=== PATIENT | female | born 1970 | race African-American/Black ===

== ENCOUNTER 2018-04-17 08:55 | Day surgery (SDC) | payer OTHER ==
[2018-04-17] MEDS ORDERED: NA CHLORIDE 0.9% 1,000 ML ONE (09:17)
[2018-04-17] MEDS ORDERED: LIDOCAINE 2% ONE (09:59)
[2018-04-17] MEDS ORDERED: PROPOFOL 200 MG/20 ML VIAL IV ONE ×3 (10:01→11:17)
--- NOTE | 2018-04-17 10:47 | ENDO RPT ---
[address], [address] EGD PROCEDURE REPORT EXAM DATE: 04/17/2018 PATIENT NAME: Stephanie Jackson MR#: [id number] BIRTHDATE: 1970 ATTENDING: George Bermudez Dr STATUS: outpatient IN ROOM DINING SERVER: Jennyfer Jones and Elizabeth Mcginnis RN INDICATIONS: The patient is a 47 yr old Female here for an EGD due to mid epigastric abdominal pain, bloating, belching, dyspepsia, and GERD PROCEDURE PERFORMED: EGD with biopsy MEDICATIONS: Per Anesthesia. TOPICAL ANESTHETIC: none CONSENT: The patient understands the risks and benefits of the procedure and understands that these risks include, but are not limited to: sedation, allergic reaction, infection, perforation and/or bleeding. Alternative means of evaluation and treatment include, among others: physical exam, x-rays, and/or surgical intervention. The patient elects to proceed with this endoscopic procedure. DESCRIPTION OF PROCEDURE: During intra-op preparation period all mechanical medical equipment was checked for proper function. Hand hygiene and appropriate measures for infection prevention was taken. Procedure, possible complications, and alternatives including but not limited to the possibility of bleeding, perforation, tear, infection, sepsis, need for surgery, need for blood transfusion, and anesthesia related complications were explained to the patient. After the risks, benefits and alternatives of the procedure were thoroughly explained, Informed consent was verified, confirmed and timeout was successfully executed by the treatment team. The patient was placed in the left lateral position. The patient was anesthetized with topical anesthesia. Through the anesthetized oropharyngeal area, the scope was passed without any difficulty. The Pentax EG-[id number] ([id number]) endoscope was introduced through the mouth and advanced to the third portion of the duodenum. Retroflexed views revealed a moderate sized hiatal hernia. The gastroscope was then slowly withdrawn and removed. LA Class A esophagitis was found in the lower esophagus. A Schatzki's ring was found in the lower esophagus. A moderate sized hiatal hernia was found Mild gastritis was found in the antrum. Multiple biopsies were obtained and sent to pathology. ADVERSE EVENTS: There were no complications. IMPRESSIONS: 1. LA Class A esophagitis in the lower esophagus 2. Early Schatzki's ring in the lower esophagus (no history of dysphagia) 3. A moderate sized hiatal hernia 4. Mild gastritis in the antrum, s/p biopsies RECOMMENDATIONS: 1. await biopsy results 2. acid suppression therapy REPEAT EXAM: George Bermudez Dr eSigned: George Bermudez Dr 04/17/2018 10:46 AM cc: Otis Negrete CPT CODES: ICD9 CODES: PATIENT NAME: Stephanie JacksonVivienne MR#: [id number]
--- NOTE | 2018-04-17 11:09 | ENDO RPT ---
[address], [address] COLONOSCOPY PROCEDURE REPORT EXAM DATE: 04/17/2018 PATIENT NAME: Stephanie Jackson MR #: [id number] BIRTHDATE: 1970 ATTENDING: George Bermudez Dr STATUS: outpatient DIESEL ENGINE ERECTOR: Jennyfer Jones and Elizabeth Mcginnis RN INDICATIONS: The patient is a 47 yr old Female here for a colonoscopy due to personal history of colon polyps and family history of colon cancer PROCEDURE PERFORMED: Colonoscopy with snare polypectomy MEDICATIONS: Per Anesthesia. ESTIMATED BLOOD LOSS: None CONSENT: The patient understands the risks and benefits of the procedure and understands that these risks include, but are not limited to: sedation, allergic reaction, infection, perforation and/or bleeding. Alternative means of evaluation and treatment include, among others: physical exam, x-rays, and/or surgical intervention. The patient elects to proceed with this endoscopic procedure. DESCRIPTION OF PROCEDURE: During intra-op preparation period all mechanical medical equipment was checked for proper function. Hand hygiene and appropriate measures for infection prevention was taken. Procedure, possible complications, alternatives including, but not limited to possibility of bleeding, perforation, tear, infection, sepsis, need for surgery, need for blood transfusion, were explained to the patient. After the risks, benefits and alternatives of the procedure were thoroughly explained, Informed consent was verified, confirmed and timeout was successfully executed by the treatment team. The patient was placed in the left lateral position. A digital rectal exam was performed and revealed no abnormalities of the rectum. After appropriate level of anesthesia, the scope was passed. The EG-[id number] ([id number]) and [id number] ([id number]) endoscope was introduced through the anus and advanced to the terminal ileum which was intubated for a short distance. The quality of the prep was fair. The instrument was then slowly withdrawn as the colon was fully examined. Scope withdrawal time was 8 minutes. COLON FINDINGS: Two sessile polyps measuring 7 mm in size were found in the ascending colon. A polypectomy was performed using snare cautery. Moderate sized internal hemorrhoids were found. Retroflexed views revealed medium hemorrhoids. The scope was then completely withdrawn from the patient and the procedure terminated. ADVERSE EVENTS: There were no complications. IMPRESSIONS: 1. Two 7 mm sessile polyps in the ascending colon; polypectomy was performed using snare cautery 2. Moderate sized internal hemorrhoids 3. Intubation to terminal ileum 4. Personal history of colon polyps RECOMMENDATIONS: 1. await biopsy results 2. avoid NSAIDS for 2 weeks RECALL: Return in 3 year(s) for Colonoscopy. George Bermudez Dr eSigned: George Bermudez Dr 04/17/2018 11:09 AM cc: Otis Negrete CPT CODES: ICD9 CODES: 211.3 Benign neoplasm of colon PATIENT NAME: Stephanie JacksonVivienne MR#: [id number]
[2018-04-17 11:50] VITALS: O2SAT 100
[2018-04-17 11:51] VITALS: BP 137/90; TEMP 97
== END 2018-04-17 11:40 | disposition home or self-care (01) ==
LOC: OR 08:55
PROVIDERS: ATTEND Internal Medicine Gastroenterology
PROC: 0DB68ZX Excision of Stomach, Via Natural or Artificial Opening Endoscopic, Diagnostic (ICD-10-PCS; principal; 2018-04-17 10:00)
PROC: 0DBK8ZX Excision of Ascending Colon, Via Natural or Artificial Opening Endoscopic, Diagnostic (ICD-10-PCS; 2018-04-17 10:00)
DX: K22.2 Esophageal obstruction (principal); Z12.11 Encounter for screening for malignant neoplasm of colon; K21.0 Gastro-esophageal reflux disease with esophagitis; K29.50 Unspecified chronic gastritis without bleeding; D12.2 Benign neoplasm of ascending colon; K44.9 Diaphragmatic hernia without obstruction or gangrene; K64.8 Other hemorrhoids; E11.9 Type 2 diabetes mellitus without complications; I10 Essential (primary) hypertension; Z86.010 Personal history of colon polyps; Z90.49 Acquired absence of other specified parts of digestive tract; Z80.0 Family history of malignant neoplasm of digestive organs; Z82.3 Family history of stroke
CPT/HCPCS: 82962; 88305; 88312; J3490; J7030

== ENCOUNTER 2025-04-15 20:40 | Observation (INO) | payer BC, OTHER, SELFPAY ==
--- OUTSIDE RECORDS SUMMARY | 2025-04-15 20:50 | XMS REPORT | Continuity of Care Document ---
Author Name Unknown Address [address] [facility]. [address] [place] [address] [facility] Address [address] 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 Role Phone Caden Young Galeano Primary Care Physician DWIGHT SEVERINO Attending Clinician Unavailable WILLIE RIVERA Attending Clinician Unavailable MAC CAMP Attending Clinician Unavailable MUSHTAQ DELCID Attending Clinician Unavailab JOHANA Fine Attending Clinician Unava ilable SARAH ELLIS Attending Clinician Unavailable CAITLIN YBARRA Attending Clinician Unavailable MARSHA DYSON Attending Clinician Unavailable RADIOLOGY, DEPT Attending Clinician Unavailable LAB90 Attending Clinician Unavailable HARISH SINGH Attending Clinician Unavailable MARLI PATTERSON Attending Clinician Unavailable [facility] Attending Clinician Unavailabl e MD HUGH Attending Clinician Unavailab rosalva Brown MD, Molly ChanH. Attending Clinician [phone] MOLLY BROWNHVivienne Attending Clinician Unavaila ble NT90 Attending Clinician Unavailable JESSCIA BANSAL Attending Clinician Unavailable [facility]AC[facility], [facility] Attending Clinician Unav ailMARSHA Barros Attending Clinician Unavailable LAB47 Attending Clinician Unavailable RONI QUISPE Attending Clinician Unavailable ROGERSJAYJAY PATTERSON Attending Clinician Unavailable TIM HENRIQUEZ Attending Clinician Unavailable Ángel MEADOWS, Molly K.H. Attending Clinician [phone] Doctor Unassigned, Otranto Attending Clinician U navailable GENEVA TERRAZAS Attending Clinician Unavailable Pina Fenton Attending Clinician [phone] Oscar Arizmendi MD Attending Clinician [phone] Julio Pardo Attending Clinician [phone] Unknown, Attending Attending Clinician Unavailab JULIO Montes Attending Clinician Unavailable Lab, Ang - Db Attending Clinician Unavailable PINA REYES Attending Clinician Unavailable DONA ACUÑA Attending Clinician Unavailable Dona Acuña MD Attending Clinician [phone] RADIOLOGY Attending Clinician Unavailable Radiology Attending Clinician Unavailable [email or web address]_S Attending Clinician Unavaila OSCAR Mercado Attending Clinician Unavailabl e Geneva Davey Attending Clinician [phone] COLBY MOONEY Attending Clinician Unavailable YEHUDA BRITTON Attending Clinician Unavailable EbYehuda Leiva Attending Clinician [phone] China Riveraa Attending Clinician Unavailabl e Visit, Adc Nurse Attending Clinician Unavailable Colby Mooney MD Attending Clinician [phone] SIXTO PAYNE Attending Clinician Unavailabl e Only, Ang Db Test Attending Clinician Unavailabl e Sixto Lacy Attending Clinician [phone] Florence Lopez RN Attending Clinician Unavailabl e LAURA SMITH Attending Clinician Unavailab Laura Neely Attending Clinician + [phone] Romel STEINER, Lorie Murray Attending Clinician CHRIS Olivares Attending Clinician Unavailjcarlos Bailey MD, Chris Attending Clinician [phone] DESIREE YBARRA Attending Clinician Unavailable Chris MEADOWS, Eva Attending Clinician [phone] LINDA PEREZ Attending Clinician Unavailable Chris SHANK BONER, Linda Attending Clinician + [phone] John MEADOWS, Cristopher Attending Clinician [phone] Jennifer Bucio MD Attending Clinician [phone] Provider, Clc Ep Lab Attending Clinician Unavail able Anesthesia, Clc Ep Lab Attending Clinician UnaJENNIFER Page Attending Clinician Unavailable Call, Clc Apac Phone Attending Clinician Unavail able Only, Adc Test Attending Clinician Unavailable Alycia Stevenson MD Attending Clinician [phone] Pob, Adc Lab Main Attending Clinician UnavailALYCIA Marcos Attending Clinician Unavailjcarlos Langley MD, Jaime Bellamy Attending Clinician [phone] Narciso Nickerson MD Attending Clinician [phone] NARCISO NICKERSON Attending Clinician Unavailable Viktoria STEINER, Adeola Yu Attending Clinician Unavailable Abdirashid Foote MD Attending Clinician [phone] Pcp-Lab Attending Clinician Unavailable Jovany Foote MD Attending Clinician [phone] ABDIRASHID FOOTE Attending Clinician Unavailab le Lab, Adc Fam Pob I Attending Clinician Unavailab rosalva Gomes MD, Violetta Attending Clinician [phone] EVA PEREZ Attending Clinician Unavailable Yamilka Zhao MD Attending Clinician [phone] VIOLETTA GOMES Attending Clinician Unavailable Burt Quintero DO Attending Clinician [phone] 2, Adc Lab Attending Clinician Unavailable DARYL TAYLOR Attending Clinician Unava ghanshyam Gallardo MD, Gail Attending Clinician [phone] JEFALIYAH Attending Clinician Unavailable Jef RD, Aliyah Attending Clinician [phone] MOLLY BROWN Admitting Clinician UnavailMICHA Elkins Admitting Clinician Unavailable [email or web address]_Cole Admitting Clinician UnavailYOUNG Sarmiento Admitting Clinician Unavailable CHRIS BAILEY Admitting Clinician Unavailjcarlos Bucio MD, Jennifer Admitting Clinician JENNIFER BUCIO Admitting Clinician Unavailable NARCISO NICKERSON Admitting Clinician Unavailable Yamilka Zhao MD Admitting Clinician Payers Payer Name Policy Type Policy Number Effective Date Expirati on Date Source BC[facility] [id number] 2021 00:00:00 2021 00:00:00 [employer]BS [facility] [id number] 2020 00:00:00 [facility] REGINALD GOLD-X COPAY FOCUS 9 [id number] 2024 00:00:00 PHCS - WP Fail-Safe [employer] (PP[place]) [id number] Beleza na Web [id number] 2023 00:00:00 [facility] [id number] [place] [id number] AETNA O [id number] 2020 00:00:00 Problems Condition Name Condition Details Condition Category Status Onset Date Resolution Date Last Treatment Date Treating Clinician Comments Source History of colonic polyps History of colonic polyps Disease Active 03-25 00:00: 00 Susu Seybold - Externa l Type 2 diabetes mellitus with obesity (multi HCC) Type 2 diabetes mellitus with obesity (multi HCC) Disease Active 03-25 00:00: 00 Susu Seybold - Externa l Uncontroll ed type 2 diabetes mellitus with hyperglyce elvis (multi HCC) Uncontroll ed type 2 diabetes mellitus with hyperglyce elvis (multi HCC) Disease Active 03-25 00:00: 00 Susu Seybold - Externa l Cardiomyop athy (multi HCC) Cardiomyop athy (multi HCC) Disease Active 03-03 00:00: 00 Susu Seybold - Externa l Type 2 diabetes mellitus with hyperglyce elvis (multi HCC) Type 2 diabetes mellitus with hyperglyce elvis (multi HCC) Disease Active 3-04 00:00: 00 Susu Butlera robert Well adult exam Well adult exam Disease Active 01-16 00:00: 00 Susu Buchanan Externa robert Class 3 severe obesity due to excess calories with body mass index (BMI) of 40.0 to 44.9 in adult Class 3 severe obesity due to excess calories with body mass index (BMI) of 40.0 to 44.9 in adult Disease Active 01-16 00:00: 00 Susu Buchanan Externa robert Immunodefi ciency due to poorly controlled type 2 diabetes (CMS/HCC) (multi HCC) Immunodefi ciency due to poorly controlled type 2 diabetes (CMS/HCC) (multi HCC) Disease Active 2 00:00: 00 Susu Butlera robert Type 2 diabetes mellitus without complicati on, with long-term current use of insulin (multi HCC) Type 2 diabetes mellitus without complicati on, with long-term current use of insulin (multi HCC) Disease Active 12-19 00:00: 00 Susu Buchanan Externa robert History of cardiac radiofrequ ency ablation History of cardiac radiofrequ ency ablation Disease Active 12-19 00:00: 00 Susu Butlera robert PVC (premature ventricula r contractio n) PVC (premature ventricula r contractio n) Disease Active 12-19 00:00: 00 Susu Butlera robert Primary hypertensi on Primary hypertensi on Disease Active 12-19 00:00: 00 Susu Buchanan Externa robert Gingival cyst of adult Gingival cyst of adult Disease Active 12-19 00:00: 00 Susu Buchanan Externa robert Hyperlipid emia Hyperlipid emia Disease Active 12-19 00:00: 00 Susu Buchanan Externa robert Encounter for current shelter use of antiplatel et drug Encounter for current terminal gauger use of antiplatel et drug Disease Active 12-19 00:00: 00 Susu jones Type 2 diabetes mellitus without complicati on, with long-term current use of insulin (multi HCC) Type 2 diabetes mellitus without complicati on, with long-term current use of insulin (multi HCC) Disease Active 1 00:00: 00 Susu jones Primary osteoarthr itis of left knee Primary osteoarthr itis of left knee Disease Active 325 00:00: 00 [facility] Acute pain of left knee Acute pain of left knee Disease Active 2-16 00:00: 00 [facility] Primary osteoarthr itis of both knees Primary osteoarthr itis of both knees Disease Active 16 00:00: [facility] Acquired varus deformity knee, right Acquired varus deformity knee, right Disease Active 216 00:00: [facility] Acquired varus deformity knee, left Acquired varus deformity knee, left Disease Active 216 00:00: [facility] Class 3 severe obesity due to excess calories with serious comorbidit y and body mass index (BMI) of 40.0 to 44.9 in adult Class 3 severe obesity due to excess calories with serious comorbidit y and body mass index (BMI) of 40.0 to 44.9 in adult Disease Active 2-16 00:00: 00 [facility] PVC (premature ventricula r contractio n) PVC (premature ventricula r contractio n) Disease Active 2020-11 218 00:00: 00 [facility] PVC (premature ventricula r contractio n) PVC (premature ventricula r contractio n) Disease Active 2020-1118 00:00: 00 [facility] Frequent PVCs Frequent PVCs Disease Active 05-15 00:00: 00 [facility] Dyslipidem ia Dyslipidem ia Disease Active 05-15 00:00: 00 [facility] Sinus tachycardi a Sinus tachycardi a Disease Active 05-15 00:00: 00 [facility] QT prolongati on QT prolongati on Disease Active 05-15 00:00: 00 [facility] Frequent PVCs Frequent PVCs Disease Active 05-15 00:00: 00 [facility] Atypical chest pain Atypical chest pain Disease Active 05-14 00:00: 00 [facility] Morbid obesity with body mass index of 40.0-49.9 Morbid obesity with body mass index of 40.0-49.9 Disease Active 05-14 00:00: 00 [facility] UNK UNK Active 10/05/2020 [facility] Diagnosis Active 2019-11 00:00: 00 2020-10-06 10:18:00 Carin Olson OTHER TEAR OF MEDIAL MENISCUS, CURRENT I OTHER TEAR OF MEDIAL MENISCUS, CURRENT I Active 10/05/2020 [facility] Diagnosis Active 2019-11 00:00: 00 2020-11-04 15:27:00 Carin Olson Type 2 diabetes mellitus with complicati on, with long-term current use of insulin Type 2 diabetes mellitus with complicati on, with long-term current use of insulin Disease Active 02-19 00:00: 00 [facility] Multiple thyroid nodules Multiple thyroid nodules Disease Active 02-19 00:00: 00 [facility] H/O: hypothyroi dism H/O: hypothyroi dism Disease Active 02-19 00:00: 00 [facility] Essential hypertensi on Essential hypertensi on Disease Active 02-19 00:00: 00 [facility] Type 2 diabetes mellitus with complicati on, with long-term current use of insulin Type 2 diabetes mellitus with complicati on, with long-term current use of insulin Disease Active 02-19 00:00: 00 [facility] Diabetes mellitus (disorder) Diabetes mellitus (disorder) Active Problem 10/11/2020 [facility] Problem Active 2020-10-11 08:24:59 Carin Olson Hypertensi ve disorder, systemic arterial (disorder) Hypertensi ve disorder, systemic arterial (disorder) Active Problem 10/11/2020 [facility] Problem Active 2020-10-11 08:24:59 Carin Olson OTH TEAR OF MEDIAL MENISCUS, CURRENT INJ OTH TEAR OF MEDIAL MENISCUS, CURRENT INJ Active Iris Olson Diagnosis Active 2020-11-04 15:27:00 Carin Olson Allergies, Adverse Reactions, Alerts Allergy Name Allergy Type Status Severity Reaction(s) Onset Date Inactive Date Treating Clinician Comments Source Ciproflo xacin Hydrochl oride Propensi ty to adverse reaction s Active Rash 01-16 00:00: 00 Susu Hunter - Externa l No Known Medicati on Allergie s No Known Medicati on Allergie s Active Carin Olson NO KNOWN ALLERGIE S Drug Class Active [facility] Social History Social Habit Start Date Stop Date Quantity Comments Source Gender identity [facility] ASSERTION Not Susu Hunter - External Sexual orientation K marito Hunter - External History of Social function 2025-03-25 00:00:00 2025-03-25 00:00:00 Susu Hunter - External Sex 2023-11-01 16:20:03 2023-11-01 16:20:03 Female (finding) Susu Hunter - External Alcoholic beverage intake 2023-10-08 00:00:00 2023-10-08 00:00:00 Current non-drinker of alcohol (finding) [facility] Exposure to SARS-CoV-2 (event) 2023-01-06 00:00:00 2023-01-16 07:03:00 Not sure [facility] Tobacco use and exposure 2022-09-03 00:00:00 2022-09-03 00:00:00 Smokeless tobacco non-user [facility] Alcohol intake 2022-03-15 00:00:00 2022-03-15 00:00:00 Lifetime non-drinker (finding) [facility] Sex assigned at 1970 00:00:00 1970 00:00:00 Susu Hunter - External Smoking Status Start Date Stop Date Source Never smoked tobacco Susu Hunter - External Medications Ordered Medication Name Filled Medication Name Start Date Stop Date Current Medication? Ordering Clinician Indication Dosage Frequency Signature (SIG) Comments Components Source TRIMETHOPRI M-SULFAMETH OXAZOLE (BACTRIM DS) 800-160 MG oral Tablet 04-14 00:00: 00 04-22 04:59 :00 Yes [id number] 1{tbl} Q.5D Take 1 tablet by mouth 2 times daily for 7 days. Susu jones Rosuvastati n Calcium 20 MG oral Tablet 04-07 00:00: 00 Yes [id number] 20mg QD Take 1 tablet (20 mg total) by mouth nightly. Susu jones Insulin Lispro, 1 Unit Dial, 100 UNIT/ML subcutaneou s Solution Pen-injecto r 03-31 00:00: 00 Yes [id number] INJECT 15 UNITS SUBCUTANEO USLY THREE TIMES DAILY WITH MEALS Susu jones Sacubitril- Valsartan (Entresto) 24-26 MG oral Tablet 03-30 00:00: 00 Yes 1{tbl} Q.5D Take 1 tablet by mouth 2 times daily. Susu jones Multiple Vitamin (MULTIVITAM IN ADULT OR) 03-25 10:19: 44 03-25 00:00 :00 No Take by mouth. Susu jones Aspirin 81 MG oral Tablet Delayed Response 03-25 10:19: 42 Yes 81mg QD Take 1 tablet (81 mg total) by mouth daily. Susu jones Cholecalcif arslan (Vitamin D3) 1000 units oral Capsule 03-25 10:19: 42 Yes Take by mouth. Susu jones Magnesium 300 MG oral Capsule 03-25 10:19: 42 Yes Susu jones Multiple Vitamins-Ir on oral Tablet 03-25 10:19: 42 Yes See Admin Instructio ns. Susu jones Omeprazole 40 MG oral Delayed Release Capsule 03-25 00:00: 00 Yes [id number] 40mg QD Take 1 capsule (40 mg total) by mouth daily. Susu jones Continuous Glucose Sensor (FreeStyle Tori 3 Sensor) does not apply [facility] 03-20 00:00: 00 Yes [id number] Every 2 weeks. Susu jones Aspirin 81 MG oral Tablet Delayed Response 03-16 08:04: 44 Yes 81mg QD Take 1 tablet (81 mg total) by mouth daily. Susu jones Multiple Vitamin (MULTIVITAM IN ADULT OR) 03-16 08:04: 44 Yes Take by mouth. Susu jones Cholecalcif arslan (Vitamin D3) 1000 units oral Capsule 03-16 08:04: 44 Yes Take by mouth. Susu jones Magnesium 300 MG oral Capsule 03-16 08:04: 44 Yes Susu jones Multiple Vitamins-Ir on oral Tablet 03-16 08:04: 44 Yes See Admin Instructio ns. Susu jones Meloxicam 15 MG oral Tablet 03-16 00:00: 00 Yes [id number] 15mg QD Take 1 tablet (15 mg total) by mouth daily Take with Meals, STOP IF UPSET STOMACH. Susu jones Candesartan Cilexetil 32 MG oral Tablet 03-10 00:00: 00 Yes 1{tbl} QD Take 1 tablet by mouth daily. Susu jones Dapaglifloz in Propanediol (Farxiga) 10 MG oral Tablet 03-03 00:00: 00 Yes [id number] 1{tbl} QD Take 1 tablet by mouth daily. Susu jones Metoprolol Succinate 50 MG oral TABLET SR 24 HR 03-03 00:00: 00 Yes 50mg QD Take 1 tablet (50 mg total) by mouth daily. Susu jones Omeprazole 20 MG oral Delayed Release Capsule 02-27 00:00: 00 03-25 00:00 :00 No [id number] 20mg QD Take 1 capsule (20 mg total) by mouth daily. Susu jones Rosuvastati n Calcium 20 MG oral Tablet 3-16 00:00: 00 Yes [id number] 20mg QD Take 1 tablet (20 mg total) by mouth nightly. Susu jones Aspirin 81 MG oral Tablet Delayed Response 01-05 08:51: 34 Yes 81mg QD Take 1 tablet (81 mg total) by mouth daily. Susu jones Multiple Vitamin (MULTIVITAM IN ADULT OR) 01-05 08:51: 34 Yes Take by mouth. Susu jones Cholecalcif arslan (Vitamin D3) 1000 units oral Capsule 01-05 08:51: 34 Yes Take by mouth. Susu jones Magnesium 300 MG oral Capsule 01-05 08:51: 34 Yes 1 capsule with a meal; Once a day; 30 day(s) Susu jones Multiple Vitamins-Ir on oral Tablet 01-05 08:51: 34 Yes See Admin Instructio ns. Susu jones Pioglitazon e HCl 15 MG oral Tablet 12-24 00:00: 00 Yes [id number] 15mg QD Take 1 tablet (15 mg total) by mouth daily. Susu jones Continuous Glucose Sensor ([employer] G7 Sensor) does not apply [facility] -24 00:00: 00 01-05 00:00 :00 No [id number] Change sensor every 10 days.. Susu jones Insulin Lispro, 1 Unit Dial, 100 UNIT/ML subcutaneou s Solution Pen-injecto r 1-10 00:00: 00 Yes [id number] INJECT 15 UNITS SUBCUTANEO USLY THREE TIMES DAILY WITH MEALS. Susu jones Insulin Glargine-Li xisenatide (Soliqua) 100-33 UNT-MCG/ML subcutaneou s Solution Pen-injecto r 1-07 00:00: 00 Yes [id number] Start 15 unit once a day, increase by 2 units every 2 days until your fasting blood sugar is 130. Max dose 60 units a day.. Susu jones Triamcinolo ne Acetonide 0.1 % apply externally Cream 2023-11 2- 00:00: 00 Yes Susu jones Pioglitazon e HCl 15 MG oral Tablet 2023-11 2-04 00:00: 00 Yes [id number] 15mg QD Take 1 tablet by mouth once daily Susu jones Rosuvastati n Calcium 20 MG oral Tablet 2023-11 00:00: 00 Yes [id number] 20mg QD Take 1 tablet (20 mg total) by mouth nightly. Susu jones Omeprazole 20 MG oral Delayed Release Capsule 2023-11 00:00: 00 Yes [id number] 20mg QD Take 1 capsule (20 mg total) by mouth daily. Susu jones Candesartan Cilexetil 32 MG oral Tablet 2023-11 00:00: 00 Yes [id number] 1{tbl} QD TAKE 1 TABLET BY MOUTH EVERY DAY Susu jones Metoprolol Succinate 25 MG oral TABLET SR 24 HR 08-18 00:00: 00 Yes 37.5mg Q.5D Take 1.5 tablets (37.5 mg total) by mouth 2 times daily. Susu jones Insulin Glargine-Li xisenatide (Soliqua) 100-33 UNT-MCG/ML subcutaneou s Solution Pen-injecto r 07-14 00:00: 00 Yes [id number] Start 15 unit once a day, increase by 2 units every 2 days until your fasting blood sugar is 130. Max dose 60 units a day.. Susu jones Continuous Glucose Sensor (FreeStyle Tori 3 Sensor) does not apply [facility] 07-14 00:00: 00 Yes [id number] Every 2 weeks. Susu jones Aspirin 81 MG oral Tablet Delayed Response 07-11 14:48: 34 Yes 81mg QD Take 1 tablet (81 mg total) by mouth daily. Susu jones Multiple Vitamin (MULTIVITAM IN ADULT OR) 07-11 14:48: 34 Yes Take by mouth. Susu jones Cholecalcif arslan (Vitamin D3) 1000 units oral Capsule 07-11 14:48: 34 Yes Take by mouth. Susu jones Magnesium 300 MG oral Capsule 07-11 14:48: 34 Yes 1 capsule with a meal; Once a day; 30 day(s) Susu jones Triamcinolo ne Acetonide 0.1 % apply externally Ointment 07-11 00:00: 00 08-09 04:59 :00 No [id number] Apply twice a day for 1 week. Susu jones Pioglitazon e HCl 15 MG oral Tablet 06-22 00:00: 00 Yes [id number] 15mg QD Take 1 tablet (15 mg total) by mouth daily. Susu jones Insulin Lispro, 1 Unit Dial, 100 UNIT/ML subcutaneou s Solution Pen-injecto r 06-10 00:00: 00 Yes [id number] INJECT 15 UNITS SUBCUTANEO USLY THREE TIMES DAILY WITH MEALS. Susu jones Candesartan Cilexetil 32 MG oral Tablet 05-05 00:00: 00 Yes [id number] 1{tbl} QD Take 1 tablet by mouth daily. Susu jones Flecainide Acetate 100 MG oral Tablet 05-03 00:00: 00 01-05 00:00 :00 No 100mg QD Take 1 tablet (100 mg total) by mouth every morning and evening. Susu jones Insulin Degludec (Tresiba FlexTouch) 100 UNIT/ML subcutaneou s Solution Pen-injecto r 04-24 00:00: 00 07-14 00:00 :00 No [id number] 40 units once a day. Susu jones Aspirin 81 MG oral Tablet Delayed Response 04-22 10:04: 01 Yes 81mg Take 1 tablet (81 mg total) by mouth daily. Susu jones Multiple Vitamin (MULTIVITAM IN ADULT OR) 04-22 10:04: 01 Yes Take by mouth. Susu jones Cholecalcif arslan (Vitamin D3) 1000 units oral Capsule 04 10:04: 01 Yes Take by mouth. Susu jones Candesartan Cilexetil 32 MG oral Tablet 04-22 10:04: 01 Yes 32mg Take 32 mg by mouth daily. Susu jones Dapaglifloz in Pro-metFORM IN ER (Xigduo XR) 5-1000 MG oral TABLET SR 24 HR 04-22 00:00: 00 Yes [id number] 1 tablet once a day. Susu jones Metformin HCl ER 500 MG oral TABLET SR 24 HR 04-22 00:00: 00 Yes [id number] 2 tabs daily at night. Susu jones Continuous Glucose Sensor (Adynxx G7 Sensor) does not apply Misc 04-22 00:00: 00 07-11 00:00 :00 No [id number] USE EVERY 10 DAYS. Susu jones OZEMPIC (0.25 or 0.5 mg/dose) 2 mg/3 mL SQ Solution Pen-Injecto r 04-22 00:00: 00 06-18 04:59 :00 No [id number] .25mg Inject 0.25 mg into the skin once a week. Susu jones Omeprazole 20 MG oral Delayed Release Capsule 5-09 00:00: 00 Yes [id number] 20mg QD Take 1 capsule (20 mg total) by mouth daily. Susu jones Insulin Degludec 100 UNIT/ML subcutaneou s Solution Pen-injecto r 3-19 00:00: 00 Yes [id number] 30U Inject 30 units into the skin daily. Susu jones Omeprazole 20 MG oral Delayed Release Capsule 01-16 16:34: 03 Yes 20mg Take 1 capsule (20 mg total) by mouth daily. Susu jones Multiple Vitamins-Mi nerals (MULTIVITAM IN ADULTS OR) 01-16 16:33: 56 01-16 00:00 :00 No Take by mouth. Susu jones Multiple Vitamin (MULTIVITAM IN ADULT OR) 01-16 16:33: 54 Yes Take by mouth. Susu jones Flecainide Acetate 100 MG oral Tablet 01-16 16:33: 54 Yes 100mg Take 1 tablet (100 mg total) by mouth. Susu jones Ergocalcife rol (Vitamin D2) 50 MCG (2000 UT) oral Tablet 01-16 16:33: 28 01-16 00:00 :00 No 1{capsu le} 1 capsule. Susu jones Aspirin 81 MG oral Tablet Delayed Response 01-16 16:33: 25 Yes 81mg Take 1 tablet (81 mg total) by mouth daily. Susu jones Cholecalcif arslan (Vitamin D3) 1000 units oral Capsule 01-16 16:33: 25 Yes Take by mouth. Susu jones Candesartan Cilexetil 32 MG oral Tablet 01-16 16:33: 25 Yes 32mg Take 32 mg by mouth daily. Susu jones Insulin Degludec (Tresiba) 100 UNIT/ML subcutaneou s Solution 12-19 15:07: 09 12-19 00:00 :00 No Inject into the skin daily. Susu jones Insulin Aspart (NOVOLOG FLEXPEN SC) 12-19 15:07: 12-19 00:00 :00 No Inject into the skin. Susu jones Metoprolol Succinate 25 MG oral Capsule ER 24 Hour Sprinkle 12-19 15:07: 09 12-19 00:00 :00 No 25mg Take 25 mg by mouth 2 times daily 1 1/2 tabs. Susu jones Candesartan Cilexetil 32 MG oral Tablet 12-19 15:07: 09 12-19 00:00 :00 No 32mg Take 32 mg by mouth daily. Susu jones Omeprazole 20 MG oral Delayed Release Capsule 12-19 15:07: 09 12-19 00:00 :00 No 20mg Take 1 capsule (20 mg total) by mouth daily. Susu jones Multiple Vitamins-Mi nerals (MULTIVITAM IN ADULTS OR) 12-19 15:07: 04 Yes Take by mouth. Susu jones Candesartan Cilexetil 32 MG oral Tablet 12-19 15:07: 04 Yes 32mg Take 32 mg by mouth daily. Susu jones Omeprazole 20 MG oral Delayed Release Capsule 12-19 15:07: 04 Yes 20mg Take 1 capsule (20 mg total) by mouth daily. Susu jones Aspirin 81 MG oral Tablet Delayed Response 12-19 15:01: 25 Yes 81mg Take 1 tablet (81 mg total) by mouth daily. Susu jones Multiple Vitamin (MULTIVITAM IN ADULT OR) 12-19 15:01: 25 Yes Take by mouth. Susu jones Cholecalcif arslan (Vitamin D3) 1000 units oral Capsule 12-19 15:01: 25 Yes Take by mouth. Susu jones Flecainide Acetate 100 MG oral Tablet 12-19 15:01: 25 Yes 100mg Take 1 tablet (100 mg total) by mouth. Susu jones Pioglitazon e HCl 15 MG oral Tablet 12-19 00:00: 00 Yes [id number] 15mg Take 1 tablet (15 mg total) by mouth daily. Susu jones Amoxicillin -Pot Clavulanate 500-125 MG oral Tablet 12-19 00:00: 00 Yes [id number] 1{tbl} Take 1 tablet by mouth every 12 hours. Susu jones Rosuvastati n Calcium 20 MG oral Tablet 12-17 00:00: 00 Yes Susu jones Insulin Aspart FlexPen 100 UNIT/ML subcutaneou s Solution Pen-injecto r 2022-11 00:00: 00 Yes INJECT 15 UNITS SUBCUTANEO USLY THREE TIMES DAILYWITH MEALS AND SLIDING SCALE. MAX DOSE OF 90 UNITS DAILY Susu jones Insulin Degludec 100 UNIT/ML subcutaneou s Solution Pen-injecto r 2022-11 00:00: 00 Yes 30U Inject 30 units into the skin daily. Susu jones Pioglitazon e HCl 15 MG oral Tablet 2022-11 00:00: 00 12-19 00:00 :00 No 15mg Take 1 tablet (15 mg total) by mouth daily. Susu jones meloxicam 7.5 mg tablet 2022-11 00:00: 00 Yes [id number] 7.5mg Take 1 tablet by mouth once daily as needed (headache not relieved by tylenol). [facility] gabapentin 300 mg capsule 2022-11 07:42: 45 Yes 300mg Take 1 capsule by mouth at bedtime. Managed by draftsperson [facility] aspirin 81 mg EC tablet 2022-11 15:38: 43 Yes 81mg Take 81 mg by mouth daily. [facility] candesartan 32 mg tablet 2022-11 15:38: 27 Yes 32mg Take 32 mg by mouth daily. [facility] flecainide 100 mg tablet 2022-11 00:00: 00 Yes [id number] 100mg Take 1 tablet by mouth in the morning and 1 tablet in the evening. [facility] rosuvastati n 20 mg tablet 2022-11 00:00: 00 Yes [id number] 20mg Take 1 tablet by mouth in the morning. [facility] Metoprolol Succinate 25 MG oral TABLET SR 24 HR 2022-11 00:00: 00 Yes 37.5mg Q.5D Take 1.5 tablets (37.5 mg total) by mouth 2 times daily. Susu joens azelastine 137 mcg (0.1 %) nasal spray 2022-11 017 00:00: 00 Yes [id number] 1{spray } Use 1 [place] in each nostril in the morning and 1 [place] in the evening. Use in each nostril as directed [facility] fluticasone propionate 50 mcg/actuati on nasal spray 2022-11 00:00: 00 Yes [id number] 1{spray } Use 1 [place] in each nostril in the morning. [facility] benzonatate 100 mg capsule 2022-11 00:00: 00 Yes [id number] 200mg Take 2 capsules by mouth every 8 (eight) hours as needed for Cough. [facility] cetirizine (ZYRTEC) 10 mg tablet 2022-11 00:00: 00 Yes [id number] 10mg Take 1 tablet by mouth in the morning. [facility] pantoprazol e (PROTONIX) 40 mg EC tablet 2022-11 13:51: 44 09-02 00:00 :00 No 40mg Take 40 mg by mouth daily. [facility] MELATONIN ORAL 2022-11 13:51: 41 09-02 00:00 :00 No Take by mouth. [facility] ergocalcife rol, vitamin d2, 1,250 mcg (50,000 unit) capsule 2022-11 13:51: 38 09-02 00:00 :00 No [id number] Take 50,000 Units by mouth weekly. [facility] clobetasoL 0.05 % ointment 2022-11 13:51: 35 09-02 00:00 :00 No [facility] metoprolol succinate XL 25 mg 24 hr tablet 08-13 00:00: 00 09-28 00:00 :00 No [id number] 37.5mg Take 1.5 tablets by mouth in the morning and 1.5 tablets in the evening. [facility] insulin NPH (NOVOLIN N NPH U-100 INSULIN) 100 unit/mL injection 08-03 00:00: 00 10-30 00:00 :00 No [id number] 15U inject 15 Units under the skin every morning and evening. [facility] semaglutide (OZEMPIC) 2 mg/dose (8 mg/3 mL) PnIj 8-10 00:00: 00 Yes [id number] 2mg inject 2 mg under the skin weekly. [facility] insulin aspart U-100 (NOVOLOG FLEXPEN U-100 INSULIN) 100 unit/mL (3 mL) injection 8-10 00:00: 00 10-30 00:00 :00 No [id number] 14 units with meals and SS. Max dose of 90 units daily [facility] flecainide 100 mg tablet 8-10 00:00: 00 09-28 00:00 :00 No [id number] 100mg Take 1 tablet by mouth in the morning and 1 tablet in the evening. [facility] insulin degludec (TRESIBA FLEXTOUCH U-100) 100 unit/mL (3 mL) InPn 06-28 00:00: 00 08-03 00:00 :00 No [id number] 50U inject 50 Units under the skin in the morning. [facility] cefdinir 300 mg capsule 2-28 00:00: 00 01-27 05:59 :00 No [id number] 600mg Take 2 capsules by mouth in the morning for 10 days. [facility] Nitrofurant oin&Nit. Macrocryst (MACROBID) 100 mg capsule 2-28 00:00: 00 01-24 05:59 :00 No [id number] 100mg Take 1 capsule by mouth in the morning and 1 capsule in the evening. Do all this for 7 days. [facility] flecainide 50 mg tablet 1-05 00:00: 00 06-28 00:00 :00 No [id number] 100mg Take 2 tablets by mouth every 12 (twelve) hours. [facility] metoprolol succinate XL 25 mg 24 hr tablet 1-04 00:00: 00 08-13 00:00 :00 No [id number] 37.5mg Take 1.5 tablets by mouth in the morning and 1.5 tablets in the evening. [facility] candesartan 32 mg tablet 2021-11 11:47: 37 Yes 32mg Take 32 mg by mouth daily. [facility] MULTIVITAMI N ORAL 2021-11 11:47: 37 Yes Take by mouth. [facility] ergocalcife rol, vitamin d2, 1,250 mcg (50,000 unit) capsule 2021-11 11:47: 37 Yes [id number] Take 50,000 Units by mouth weekly. [facility] aspirin 81 mg EC tablet 2021-11 11:47: 37 Yes 81mg Take 81 mg by mouth daily. [facility] Cholecalcif arslan, Vitamin D3, 50 mcg (2,000 unit) capsule 2021-11 11:47: 37 Yes 1{capsu le} Take 1 capsule by mouth daily. [facility] omeprazole 20 mg capsule 2021-11 11:47: 37 Yes 20mg Take 20 mg by mouth daily. [facility] clobetasoL 0.05 % ointment 2021-11 11:47: 37 Yes [facility] molnupiravi r 200 mg capsule 2021-11 00:00: 00 11-23 05:59 :00 No [id number] 800mg Take 4 capsules by mouth every 12 (twelve) hours for 5 days. [facility] venlafaxine 50 mg tablet 2021-11 13:34: 08 10-29 00:00 :00 No 100mg Take 100 mg by mouth daily. [facility] ALPRAZolam 0.5 mg tablet 2021-11 13:33: 53 10-29 00:00 :00 No .5mg Take 0.5 mg by mouth. [facility] Insulin [place], Disposable, (BD INSULIN PEN NEEDLE UF) 31 gauge x 5/16" Ndle 2021-11 00:00: 00 Yes [id number] Use to inject insulin 5X daily. DX:E11.65 [facility] pioglitazon e 15 mg tablet 2021-11 00:00: 00 Yes [id number] 15mg Take 1 tablet by mouth in the morning. [facility] Insulin [place], Disposable, (BD INSULIN PEN NEEDLE UF) 31 gauge x 5/16" Ndle 2021-11 00:00: 00 Yes [id number] Use to inject insulin 5X daily. DX:E11.65 [facility] semaglutide (OZEMPIC) 2 mg/dose (8 mg/3 mL) PnIj 2021-11 00:00: 00 06-28 00:00 :00 No [id number] 2mg inject 2 mg under the skin weekly. [facility] insulin degludec (TRESIBA FLEXTOUCH U-100) 100 unit/mL (3 mL) InPn 2021-11 00:00: 00 06-28 00:00 :00 No [id number] 50U inject 50 Units under the skin daily. [facility] insulin aspart U-100 (NOVOLOG FLEXPEN U-100 INSULIN) 100 unit/mL (3 mL) injection 2021-11 00:00: 00 06-28 00:00 :00 No [id number] 14 units with meals and SS. Max dose of 90 units daily [facility] Venlafaxine 225 mg TR24 2021-11 10:08: 20 10-03 00:00 :00 No 100mg Take 100 mg by mouth 2 (two) times daily. [facility] meloxicam 7.5 mg tablet 2021-11 10:08: 17 10-03 00:00 :00 No 7.5mg Take 7.5 mg by mouth daily. PRN pain [facility] lovastatin 20 mg tablet 2021-11 10:02: 57 10-03 00:00 :00 No 20mg Take 20 mg by mouth. [facility] candesartan 32 mg tablet 2021-11 09:52: 51 Yes 32mg Take 32 mg by mouth daily. [facility] aspirin 81 mg EC tablet 2021-11 09:52: 47 Yes 81mg Take 81 mg by mouth daily. [facility] rosuvastati n 20 mg tablet 2021-11 00:00: 00 09-28 00:00 :00 No 20mg Take 1 tablet by mouth. [facility] ALPRAZolam 0.5 mg tablet 2021-11 10:42: 18 Yes .5mg Take 0.5 mg by mouth. [facility] clobetasoL 0.05 % ointment 2021-11 10:42: 18 Yes [facility] lovastatin 20 mg tablet 2021-11 10:42: 18 Yes 20mg Take 20 mg by mouth. [facility] benzonatate 100 mg capsule 2021-11 00:00: 00 09-11 04:59 :00 No [id number] 100mg Take 1 capsule by mouth 3 (three) times daily as needed for Cough for up to 7 days. [facility] Blood-Gluco se Sensor (DEXCOM G6 SENSOR) Janette 08-10 00:00: 00 Yes [id number] Use as directed [facility] Blood-Gluco se Transmitter (DEXCOM G6 TRANSMITTER ) Janette 08-10 00:00: 00 09-02 00:00 :00 No [id number] Use as directed [facility] metoprolol succinate XL 25 mg 24 hr tablet 07-20 00:00: 00 11-22 00:00 :00 No [id number] 25mg Take 1 tablet by mouth in the morning and 1 tablet in the evening. [facility] gabapentin 100 mg capsule 07-15 00:00: 00 10-04 00:00 :00 No TAKE 1 CAPSULE BY MOUTH TWICE DAILY NEEDED [facility] insulin aspart U-100 (NOVOLOG FLEXPEN U-100 INSULIN) 100 unit/mL (3 mL) injection 07-15 00:00: 00 10-27 00:00 :00 No [id number] 14 units with meals and SS. Max dose of 90 units daily [facility] pioglitazon e 15 mg tablet 06-05 00:00: 00 10-27 00:00 :00 No [id number] 15mg Take 1 tablet by mouth in the morning. [facility] insulin degludec (TRESIBA FLEXTOUCH U-100) 100 unit/mL (3 mL) InPn 05-27 00:00: 00 10-27 00:00 :00 No [id number] 50U inject 50 Units under the skin daily. [facility] insulin aspart U-100 (NOVOLOG FLEXPEN U-100 INSULIN) 100 unit/mL (3 mL) injection 05-19 00:00: 00 07-15 00:00 :00 No [id number] 14 units with meals and SS. Max dose of 90 units daily [facility] candesartan 32 mg tablet 04-07 11:46: 06 Yes 32mg Take 32 mg by mouth daily. [facility] meloxicam 7.5 mg tablet 04-07 11:46: 02 Yes 7.5mg Take 7.5 mg by mouth daily. PRN pain [facility] Venlafaxine 225 mg TR24 04-07 11:46: 02 Yes 100mg Take 100 mg by mouth 2 (two) times daily. [facility] MULTIVITAMI N ORAL 04-07 11:45: 23 Yes Take by mouth. [facility] MELATONIN ORAL 04-07 11:45: 18 Yes Take by mouth. [facility] ergocalcife rol, vitamin d2, 1,250 mcg (50,000 unit) capsule 04-07 11:45: 15 Yes [id number] Take 50,000 Units by mouth weekly. [facility] aspirin 81 mg EC tablet 04-07 11:45: 14 Yes 81mg Take 81 mg by mouth daily. [facility] venlafaxine 50 mg tablet 04-07 11:45: 12 Yes 100mg Take 100 mg by mouth daily. [facility] Cholecalcif arslan, Vitamin D3, (VITAMIN D3) 50 mcg (2,000 unit) capsule 04-07 11:45: 00 Yes 1{capsu le} Take 1 capsule by mouth daily. [facility] omeprazole 20 mg capsule 04-07 11:44: 27 Yes 20mg Take 20 mg by mouth daily. [facility] semaglutide (OZEMPIC) 1 mg/dose (4 mg/3 mL) PnIj 04-07 00:00: 00 10-27 00:00 :00 No [id number] 1mg inject 1 mg under the skin weekly. [facility] ALPRAZolam (XANAX) 0.25 mg tablet 04-03 14:17: 13 04-03 00:00 :00 No .25mg Take 0.25 mg by mouth as needed (take 1/2 to 1 tablet qd as needed). [facility] liraglutide (VICTOZA 3-MEHRDAD) 0.6 mg/0.1 mL (18 mg/3 mL) injection 03-20 00:00: 00 04-07 00:00 :00 No [id number] ADMINISTER 1.8 MG UNDER THE SKIN DAILY [facility] Sodium Hyaluronate solution prefilled syringe 20 mg 03-15 14:39: 38 03-15 14:39 :00 No [id number] 9109 20mg [facility] Sodium Hyaluronate solution prefilled syringe 20 mg 03-10 13:43: 53 03-10 13:43 :00 No [id number] 9109 20mg [facility] Sodium Hyaluronate solution prefilled syringe 20 mg 03-01 14:21: 55 03-01 14:21 :00 No [id number] 9109 20mg [facility] omeprazole OTC (PriLOSEC OTC) 20 MG EC tablet 02-10 00:00: 00 03-13 04:59 :00 No [id number] 9100 20mg QD Take 1 tablet (20 mg total) by mouth 1 (one) time each day. Do not crush, chew, or split. Take w/ NSAID [facility] meloxicam (Mobic) 7.5 MG tablet 02-10 00:00: 00 03-13 04:59 :00 No [id number] 9100 7.5mg Take 1 tablet (7.5 mg total) by mouth 1 (one) time each day if needed (pain). [facility] pantoprazol e (PROTONIX) 40 mg EC tablet 01-18 10:24: 18 Yes 40mg Take 40 mg by mouth daily. [facility] flecainide 50 mg tablet 01-18 00:00: 00 11-23 00:00 :00 No [id number] 50mg Take 1 tablet by mouth every 12 (twelve) hours. [facility] bupivacaine (Marcaine) 0.25 % injection 1 mL 01-04 15:29: 49 01-04 15:29 :00 No [id number] 1mL [facility] lidocaine (Xylocaine) 1 % injection 1 mL 01-04 15:29: 49 01-04 15:29 :00 No [id number] 1mL [facility] triamcinolo ne acetonide (Kenalog) 10 MG/ML injection 10 mg 01-04 15:29: 49 01-04 15:29 :00 No [id number] 10mg [facility] venlafaxine XR (Effexor-XR ) 75 MG 24 hr capsule 01-04 08:38: 33 Yes 75mg Take 75 mg by mouth. [facility] aspirin 81 MG EC tablet 01-04 08:38: 32 Yes 81mg Take 81 mg by mouth. [facility] candesartan (Atacand) 32 MG tablet 01-04 08:38: 32 Yes 32mg Take 32 mg by mouth. [facility] cholecalcif arslan (Vitamin D-3) 1.25 MG (52338 UT) capsule 01-04 08:38: 32 Yes 1{tbl} Take 1 tablet by mouth. [facility] gabapentin (Neurontin) 100 MG capsule 01-04 08:38: 32 Yes 100mg Take 100 mg by mouth. [facility] Pediatric Multiple Vit-C-FA (pediatric multivitami n) tablet chewable split tablet 01-04 08:38: 31 Yes Take by mouth. [facility] omeprazole OTC (PriLOSEC OTC) 20 MG EC tablet 01-04 00:00: 00 02-04 04:59 :00 No [id number] 20mg QD Take 1 tablet (20 mg total) by mouth 1 (one) time each day. Do not crush, chew, or split. Take w/ NSAID [facility] meloxicam (Mobic) 15 MG tablet 12-29 00:00: 00 Yes TAKE 1 TABLET BY MOUTH ONCE DAILY NEEDED WITH FOOD [facility] HYDROcodone -acetaminop hen 5-325 mg tablet 12-29 00:00: 00 10-29 00:00 :00 No 1{tbl} Take 1 tablet by mouth. [facility] Tresiba FlexTouch 100 UNIT/ML injection 12-18 00:00: 00 Yes 50U QD Inject 50 Units under the skin 1 (one) time each day. INJECT 50 UNITS SUBCUTANEO USLY ONCE DAILY [facility] pioglitazon e (Actos) 15 MG tablet 12-09 00:00: 00 Yes 1{tbl} QD Take 1 tablet by mouth 1 (one) time each day. [facility] pioglitazon e 15 mg tablet 12-09 00:00: 00 06-05 00:00 :00 No [id number] 15mg Take 1 tablet by mouth daily. [facility] methocarbam oL 750 mg tablet 2020-11 00:00: 00 04-07 00:00 :00 No [id number] 750mg Take 1 tablet by mouth 4 (four) times daily as needed for Pain (scale 7-10). [facility] flecainide (Tambocor) 50 MG tablet 2020-11 00:00: 00 Yes 1{tbl} Q12H Take 1 tablet by mouth every 12 (twelve) hours. [facility] sucralfate 1 gram tablet 2020-11 00:00: 00 09-02 00:00 :00 No [id number] 1g Take 1 tablet by mouth 2 (two) times daily. [facility] Continuous Blood Gluc Sensor (Dexcom G6 Sensor) [facility] 2020-11 00:00: 00 Yes See administra yolie francis. [facility] rosuvastati n 10 mg tablet 2020-11 10:22: 43 10-04 00:00 :00 No 10mg Take 10 mg by mouth at bedtime. [facility] rosuvastati n 20 mg tablet 2020-11 00:00: 00 01-03 05:59 :00 No [id number] 20mg Take 1 tablet by mouth at bedtime for 90 days. [facility] B-D UF III MINI PEN NEEDLES 31G X 5 MM [facility] 2020-11 00:00: 00 Yes USE TO INJECT INSULIN FIVE TIMES DAILY [facility] rosuvastati n 10 mg tablet 2020-11 00:00: 00 10-03 00:00 :00 No 10mg Take 10 mg by mouth. [facility] liraglutide (VICTOZA 2-MEHRDAD) 0.6 mg/0.1 mL (18 mg/3 mL) injection 2020-11 00:00: 00 10-27 00:00 :00 No 1.8mg inject 1.8 mg under the skin. [facility] mupirocin 2 % ointment 07-26 00:00: 00 09-02 00:00 :00 No APPLY TOPICALLY TO THE SKIN TWICE DAILY [facility] metoprolol succinate XL 25 mg 24 hr tablet 07-12 00:00: 00 07-19 00:00 :00 No [id number] 25mg Take 1 tablet by mouth 2 (two) times daily. [facility] metoprolol succinate XL 25 mg 24 hr tablet 06-07 00:00: 00 07-12 00:00 :00 No [id number] 25mg Take 1 tablet by mouth daily. [facility] metoprolol succinate XL 25 mg 24 hr tablet 05-27 00:00: 00 06-07 00:00 :00 No [id number] 25mg Take 1 tablet by mouth daily. [facility] Insulin [place], Disposable, (BD INSULIN PEN NEEDLE UF) 31 gauge x 5/16" Ndle 05-17 00:00: 00 10-27 00:00 :00 No [id number] Use to inject insulin 5X daily. DX:E11.65 [facility] Insulin [place], Disposable, (BD INSULIN PEN NEEDLE UF) 31 gauge x 5/16" Ndle 05-17 00:00: 00 10-27 00:00 :00 No [id number] Use to inject insulin 5X daily. DX:E11.65 [facility] insulin degludec (TRESIBA FLEXTOUCH U-100) 100 unit/mL (3 mL) InPn 05-17 00:00: 00 05-27 00:00 :00 No [id number] 50U inject 50 Units under the skin daily. [facility] insulin aspart U-100 (NOVOLOG FLEXPEN U-100 INSULIN) 100 unit/mL (3 mL) injection 05-17 00:00: 00 05-19 00:00 :00 No [id number] 14 units with meals and SS. Max dose of 90 units daily [facility] pioglitazon e 15 mg tablet 05-17 00:00: 00 12-09 00:00 :00 No [id number] 15mg Take 1 tablet by mouth daily. [facility] liraglutide (VICTOZA 3-MEHRDAD) 0.6 mg/0.1 mL (18 mg/3 mL) injection 05-17 00:00: 00 09-06 00:00 :00 No [id number] 1.8mg inject 1.8 mg under the skin daily. [facility] Blood-Gluco se Sensor (DEXCOM G6 SENSOR) Janette 05-16 00:00: 00 08-10 00:00 :00 No [id number] Use as directed [facility] Blood-Gluco se Transmitter (DEXCOM G6 TRANSMITTER ) Janette 05-16 00:00: 00 08-10 00:00 :00 No [id number] Use as directed [facility] aspirin 81 mg EC tablet 05-14 00:00: 00 06-14 04:59 :00 No [id number] 81mg Take 1 tablet by mouth daily for 30 days. [facility] Hydralazine 2019-11 18:21: 00 No Notes: (Same as: Apresoline ) Push over 5 minutes Kaililly robert Wesley Labetalol 2019-11 18:21: 00 No Notes: (Same as: Normodyne, Trandate) Push over 2 minutes Give bolus over 2-3 minutes. Kaililly robert [place] Ketorolac 2019-11 18:21: 00 No 4 days MEDICATION WASTE Product Size: 30 mg Product Wasted: ___ mg Kaililly robert Wesley Hydromorpho ne 2019-11 18:21: 00 No Notes: Same as: Dilaudid Memlilly Olson Flumazenil 2019-11 18:21: 00 No Notes: (Same as: Romazicon) Memlilly robert Olson Naloxone 2019-11 18:21: 00 No Notes: Same as Narcan Carin Olson Ephedrine 2019-11 18:21: 00 No Notes: (Same as: ePHEDrine Sulfate) Carin robert Wesley Albuterol 0.83 MG/ML Inhalant Solution 2019-11 18:21: 00 No Notes: SEE RT DOCUMENTAT ION (Same as: Proventil) Kaililly robert [place] Diphenhydra mine 2019-11 18:21: 00 No Notes: (Same as: Benadryl) Kaililly robert Olson Meperidine 2019-11 18:21: 00 No Notes: (Same as: Demerol) "Use Precaution in Elderly, Seizure disorders, and Renal impairment " Carin Olson Promethazin e 2019-11 18:21: 00 No Notes: Do not give IV push. (Same as: Phenergan) Carin Olson Tylenol 2019-11 18:15: 00 No Notes: Do not exceed 4 gm/day. (Same as: Tylenol) Carin Olson Roxicodone 2019-11 18:14: 00 No Notes: (Same as: Roxicodone ) Carin Olson Zofran 2019-11 17:52: 00 No Notes: (Same as: Zofran) MEDICATION WASTE Product Size: 4 mg Product Wasted: ___ mg Carin Kingann Acetaminoph en 325 MG / Oxycodone Hydrochlori de 5 MG Oral Tablet [Percocet 5/325] 2019-11 17:52: 00 No 2 tab, Route: PO, Drug Form: TAB, Dosing Weight 116.091, kg, Q4H, PRN Pain, Start date: 10/08/20 11:52:00 DELI/BAKERY ASSOCIATE, Duration: 30 day, Stop date: 11/07/20 11:51:00 DELI/BAKERY ASSOCIATE Carin Olson succinylcho line (ANES) 2019-11 17:03: 00 No Route: IV, Drug form: INJ, ONCE, Stop date: 10/08/20 11:03:00 DELI/BAKERY ASSOCIATE Carin Olson dexamethaso ne (ANES) 2019-11 17:03: 00 No Route: IV, Drug form: INJ, ONCE, Stop date: 10/08/20 11:03:00 DELI/BAKERY ASSOCIATE Carin Olson fentaNYL (ANES) 2019-11 17:03: 00 No Route: IV, Drug form: INJ, ONCE, Stop date: 10/08/20 11:03:00 DELI/BAKERY ASSOCIATE Carin Olson ondansetron (ANES) 2019-11 17:03: 00 No Route: IV, Drug form: INJ, ONCE, Stop date: 10/08/20 11:03:00 DELI/BAKERY ASSOCIATE Carin Olson lidocaine (ANES) 2019-11 17:03: 00 No Route: IV, Drug form: INJ, ONCE, Stop date: 10/08/20 11:03:00 DELI/BAKERY ASSOCIATE Carin Olson propofol (ANES) 2019-11 17:03: 00 No Route: IV, Drug form: INJ, ONCE, Stop date: 10/08/20 11:03:00 DELI/BAKERY ASSOCIATE Carin Olson rocuronium (ANES) 2019-11 17:03: 00 No Route: IV, Drug form: INJ, ONCE, Stop date: 10/08/20 11:03:00 DELI/BAKERY ASSOCIATE Carin Olson ceFAZolin (ANES) 2019-11 16:58: 00 No Route: IV, Drug form: INJ, ONCE, Stop date: 10/08/20 10:58:00 DELI/BAKERY ASSOCIATE Carin Olson Lactated Ringers Injection IV (ANES) 1000 mL 2019-11 16:06: 00 No Route: IV, Total Volume: 1,000, Start date: 10/08/20 10:06:00 DELI/BAKERY ASSOCIATE, Stop date: 10/08/20 11:06:00 DELI/BAKERY ASSOCIATE Carin Olson Dextrose 50% Syringe (D50W) 2019-11 14:47: 00 No 12.5 gm, Route: IVP, Dosing Weight 116.091, kg, ONCE, Start date: 10/08/20 8:47:00 DELI/BAKERY ASSOCIATE, Stop date: 10/08/20 8:47:00 DELI/BAKERY ASSOCIATE Carin Olson Calcium Chloride 0.0014 MEQ/ML / Potassium Chloride 0.004 MEQ/ML / Sodium Chloride 0.103 MEQ/ML / Sodium Lactate 0.028 MEQ/ML Injectable Solution 2019-11 13:58: 00 No 1,000 mL, Rate: 75 ml/hr, Infuse over: 13.3 hr, Route: IV, Dosing Weight 116.091 kg, Total Volume: 1,000, Start date: 10/08/20 7:58:00 DELI/BAKERY ASSOCIATE, Duration: 30 day, Stop date: 11/07/20 7:57:00 DELI/BAKERY ASSOCIATE, 2.36, m2, 0 Carin Olson rosuvastati n 10 mg oral tablet 2019-11 20:40: 00 Yes 10 mg = 1 tab, PO, Daily, 0 Refill(s) Carin Olson pantoprazol e 40 mg oral enteric coated tablet 2019-11 20:40: 00 Yes 40 mg = 1 tab, PO, Daily, 0 Refill(s) Carin Olson 3 ML liraglutide 6 MG/ML Prefilled Syringe [Victoza] 2019-11 20:40: 00 Yes SUB-Q, Daily, 0 Refill(s) Carin Olson NovoLog 2019-11 20:39: 00 Yes 14 unit, SUB-Q, TID-Before Meals, 0 Refill(s) Carin Olson pioglitazon e 15 MG Oral Tablet [Actos] 2019-11 20:38: 00 Yes 15 mg = 1 tab, PO, Daily, 0 Refill(s) Carin Olson Vitamin D3 50,000 intl units oral capsule 2019-11 20:38: 00 Yes 50,000 IntlUnit = 1 cap, PO, qWeek, # 12 cap, 0 Refill(s) Carin Olson Basaglar KwikPen 2019-11 20:38: 00 Yes 50 units, SUB-Q, Daily, 0 Refill(s) Carin Olson 24 HR venlafaxine 150 MG Extended Release Capsule [Effexor] 2019-11 20:28: 00 Yes 150 mg = 1 cap, PO, Daily, 0 Refill(s) Carin Olson candesartan 2019-11 20:26: 00 Yes 32 mg, PO, Daily, 0 Refill(s) Carin Olson Immunizations Ordered Immunization Name Filled Immunization Name Date Status Comments Source Influenza Virus Vaccine (3+ yrs) 2024-01-17 00:00:00 Completed [facility] SARS-COV-2 COVID-19 MODERNA 12+ YRS VACCINE 2024-01-17 00:00:00 Completed [facility] TDAP 2024-01-17 00:00:00 Completed [facility] Influenza Virus Vaccine Quad IM, Preserv and ABX Free 6 MO-64 YRS (FLUCELVAX) 2024-01-17 00:00:00 Completed [facility] Influenza Virus Vaccine 2024-01-17 00:00:00 Completed [facility] Influenza Virus Vaccine (3+ yrs) 2024-01-17 00:00:00 Completed [facility] Influenza Virus Vaccine 2024-01-17 00:00:00 Completed [facility] SARS-COV-2 COVID-19 MODERNA 12+ YRS VACCINE 2024-01-17 00:00:00 Completed [facility] TDAP 2024-01-17 00:00:00 Completed [facility] Influenza Virus Vaccine Quad IM, Preserv and ABX Free 6 MO-64 YRS (FLUCELVAX) 2024-01-17 00:00:00 Completed [facility] Influenza Virus Vaccine (3+ yrs) 2024-01-09 00:00:00 Completed [facility] Influenza Virus Vaccine 2024-01-09 00:00:00 Completed [facility] SARS-COV-2 COVID-19 MODERNA 12+ YRS VACCINE 2024-01-09 00:00:00 Completed [facility] TDAP 2024-01-09 00:00:00 Completed [facility] Influenza Virus Vaccine Quad IM, Preserv and ABX Free 6 MO-64 YRS (FLUCELVAX) 2024-01-09 00:00:00 Completed [facility] Influenza Virus Vaccine (3+ yrs) 2024-01-01 00:00:00 Completed [facility] Influenza Virus Vaccine 2024-01-01 00:00:00 Completed [facility] SARS-COV-2 COVID-19 MODERNA 12+ YRS VACCINE 2024-01-01 00:00:00 Completed [facility] TDAP 2024-01-01 00:00:00 Completed [facility] Influenza Virus Vaccine Quad IM, Preserv and ABX Free 6 MO-64 YRS (FLUCELVAX) 2024-01-01 00:00:00 Completed [facility] Influenza Virus Vaccine (3+ yrs) 2023-12-04 00:00:00 Completed [facility] Influenza Virus Vaccine 2023-12-04 00:00:00 Completed [facility] SARS-COV-2 COVID-19 MODERNA 12+ YRS VACCINE 2023-12-04 00:00:00 Completed [facility] TDAP 2023-12-04 00:00:00 Completed [facility] Influenza Virus Vaccine Quad IM, Preserv and ABX Free 6 MO-64 YRS (FLUCELVAX) 2023-12-04 00:00:00 Completed [facility] Influenza Virus Vaccine (3+ yrs) 2023-11-30 00:00:00 Completed [facility] Influenza Virus Vaccine 2023-11-30 00:00:00 Completed [facility] SARS-COV-2 COVID-19 MODERNA 12+ YRS VACCINE 2023-11-30 00:00:00 Completed [facility] TDAP 2023-11-30 00:00:00 Completed [facility] Influenza Virus Vaccine Quad IM, Preserv and ABX Free 6 MO-64 YRS (FLUCELVAX) 2023-11-30 00:00:00 Completed [facility] Influenza Virus Vaccine (3+ yrs) 2023-10-27 00:00:00 Completed [facility] Influenza Virus Vaccine 2023-10-27 00:00:00 Completed [facility] SARS-COV-2 COVID-19 MODERNA 12+ YRS VACCINE 2023-10-27 00:00:00 Completed [facility] TDAP 2023-10-27 00:00:00 Completed [facility] Influenza Virus Vaccine Quad IM, Preserv and ABX Free 6 MO-64 YRS (FLUCELVAX) 2023-10-27 00:00:00 Completed [facility] Influenza Virus Vaccine (3+ yrs) 2023-10-16 00:00:00 Completed [facility] Influenza Virus Vaccine 2023-10-16 00:00:00 Completed [facility] SARS-COV-2 COVID-19 MODERNA 12+ YRS VACCINE 2023-10-16 00:00:00 Completed [facility] TDAP 2023-10-16 00:00:00 Completed [facility] Influenza Virus Vaccine Quad IM, Preserv and ABX Free 6 MO-64 YRS (FLUCELVAX) 2023-10-16 00:00:00 Completed [facility] Influenza Virus Vaccine (3+ yrs) 2023-10-16 00:00:00 Completed [facility] Influenza Virus Vaccine 2023-10-16 00:00:00 Completed [facility] SARS-COV-2 COVID-19 MODERNA 12+ YRS VACCINE 2023-10-16 00:00:00 Completed [facility] TDAP 2023-10-16 00:00:00 Completed [facility] Influenza Virus Vaccine Quad IM, Preserv and ABX Free 6 MO-64 YRS (FLUCELVAX) 2023-10-16 00:00:00 Completed [facility] Influenza Virus Vaccine (3+ yrs) 2023-10-06 19:40:00 Completed [facility] Influenza Virus Vaccine 2023-10-06 19:40:00 Completed [facility] SARS-COV-2 COVID-19 MODERNA 12+ YRS VACCINE 2023-10-06 19:40:00 Completed [facility] TDAP 2023-10-06 19:40:00 Completed [facility] Influenza Virus Vaccine Quad IM, Preserv and ABX Free 6 MO-64 YRS (FLUCELVAX) 2023-10-06 19:40:00 Completed [facility] Influenza Virus Vaccine (3+ yrs) 2023-10-05 09:15:00 Completed [facility] SARS-COV-2 COVID-19 MODERNA 12+ YRS VACCINE 2023-10-05 09:15:00 Completed [facility] TDAP 2023-10-05 09:15:00 Completed [facility] Influenza Virus Vaccine Quad IM, Preserv and ABX Free 6 MO-64 YRS (FLUCELVAX) 2023-10-05 09:15:00 Completed [facility] Influenza Virus Vaccine 2023-10-05 09:15:00 Completed [facility] Influenza Virus Vaccine (3+ yrs) 2023-10-05 00:00:00 Completed [facility] Influenza Virus Vaccine 2023-10-05 00:00:00 Completed [facility] SARS-COV-2 COVID-19 MODERNA 12+ YRS VACCINE 2023-10-05 00:00:00 Completed [facility] TDAP 2023-10-05 00:00:00 Completed [facility] Influenza Virus Vaccine Quad IM, Preserv and ABX Free 6 MO-64 YRS (FLUCELVAX) 2023-10-05 00:00:00 Completed [facility] Influenza Virus Vaccine (3+ yrs) 2023-10-05 00:00:00 Completed [facility] Influenza Virus Vaccine 2023-10-05 00:00:00 Completed [facility] SARS-COV-2 COVID-19 MODERNA 12+ YRS VACCINE 2023-10-05 00:00:00 Completed [facility] TDAP 2023-10-05 00:00:00 Completed [facility] Influenza Virus Vaccine Quad IM, Preserv and ABX Free 6 MO-64 YRS (FLUCELVAX) 2023-10-05 00:00:00 Completed [facility] Influenza Virus Vaccine (3+ yrs) 2023-10-04 07:00:00 Completed [facility] SARS-COV-2 COVID-19 MODERNA 12+ YRS VACCINE 2023-10-04 07:00:00 Completed [facility] TDAP 2023-10-04 07:00:00 Completed [facility] Influenza Virus Vaccine Quad IM, Preserv and ABX Free 6 MO-64 YRS (FLUCELVAX) 2023-10-04 07:00:00 Completed [facility] Influenza Virus Vaccine 2023-10-04 07:00:00 Completed [facility] Influenza Virus Vaccine (3+ yrs) 2023-09-28 15:30:00 Completed [facility] Influenza Virus Vaccine 2023-09-28 15:30:00 Completed [facility] SARS-COV-2 COVID-19 MODERNA 12+ YRS VACCINE 2023-09-28 15:30:00 Completed [facility] TDAP 2023-09-28 15:30:00 Completed [facility] Influenza Virus Vaccine Quad IM, Preserv and ABX Free 6 MO-64 YRS (FLUCELVAX) 2023-09-28 15:30:00 Completed [facility] Influenza Virus Vaccine (3+ yrs) 2023-09-20 00:00:00 Completed [facility] Influenza Virus Vaccine 2023-09-20 00:00:00 Completed [facility] SARS-COV-2 COVID-19 MODERNA 12+ YRS VACCINE 2023-09-20 00:00:00 Completed [facility] TDAP 2023-09-20 00:00:00 Completed [facility] Influenza Virus Vaccine Quad IM, Preserv and ABX Free 6 MO-64 YRS (FLUCELVAX) 2023-09-20 00:00:00 Completed [facility] Influenza Virus Vaccine (3+ yrs) 2023-09-10 16:00:00 Completed [facility] Influenza Virus Vaccine 2023-09-10 16:00:00 Completed [facility] SARS-COV-2 COVID-19 MODERNA 12+ YRS VACCINE 2023-09-10 16:00:00 Completed [facility] TDAP 2023-09-10 16:00:00 Completed [facility] Influenza Virus Vaccine Quad IM, Preserv and ABX Free 6 MO-64 YRS (FLUCELVAX) 2023-09-10 16:00:00 Completed [facility] Influenza Virus Vaccine (3+ yrs) 2023-09-05 00:00:00 Completed [facility] Influenza Virus Vaccine 2023-09-05 00:00:00 Completed [facility] SARS-COV-2 COVID-19 MODERNA 12+ YRS VACCINE 2023-09-05 00:00:00 Completed [facility] TDAP 2023-09-05 00:00:00 Completed [facility] Influenza Virus Vaccine Quad IM, Preserv and ABX Free 6 MO-64 YRS (FLUCELVAX) 2023-09-05 00:00:00 Completed [facility] Influenza Virus Vaccine (3+ yrs) 2023-09-04 09:00:00 Completed [facility] Influenza Virus Vaccine 2023-09-04 09:00:00 Completed [facility] SARS-COV-2 COVID-19 MODERNA 12+ YRS VACCINE 2023-09-04 09:00:00 Completed [facility] TDAP 2023-09-04 09:00:00 Completed [facility] Influenza Virus Vaccine Quad IM, Preserv and ABX Free 6 MO-64 YRS (FLUCELVAX) 2023-09-04 09:00:00 Completed [facility] Influenza Virus Vaccine (3+ yrs) 2023-09-04 00:00:00 Completed [facility] Influenza Virus Vaccine 2023-09-04 00:00:00 Completed [facility] SARS-COV-2 COVID-19 MODERNA 12+ YRS VACCINE 2023-09-04 00:00:00 Completed [facility] TDAP 2023-09-04 00:00:00 Completed [facility] Influenza Virus Vaccine Quad IM, Preserv and ABX Free 6 MO-64 YRS (FLUCELVAX) 2023-09-04 00:00:00 Completed [facility] Influenza Virus Vaccine (3+ yrs) 2023-08-31 00:00:00 Completed [facility] Influenza Virus Vaccine 2023-08-31 00:00:00 Completed [facility] SARS-COV-2 COVID-19 MODERNA 12+ YRS VACCINE 2023-08-31 00:00:00 Completed [facility] TDAP 2023-08-31 00:00:00 Completed [facility] Influenza Virus Vaccine Quad IM, Preserv and ABX Free 6 MO-64 YRS (FLUCELVAX) 2023-08-31 00:00:00 Completed [facility] Influenza Virus Vaccine (3+ yrs) 2023-08-23 09:40:00 Completed [facility] Influenza Virus Vaccine 2023-08-23 09:40:00 Completed [facility] SARS-COV-2 COVID-19 MODERNA 12+ YRS VACCINE 2023-08-23 09:40:00 Completed [facility] TDAP 2023-08-23 09:40:00 Completed [facility] Influenza Virus Vaccine Quad IM, Preserv and ABX Free 6 MO-64 YRS (FLUCELVAX) 2023-08-23 09:40:00 Completed [facility] Influenza Virus Vaccine (3+ yrs) 2023-08-15 08:00:00 Completed [facility] Influenza Virus Vaccine 2023-08-15 08:00:00 Completed [facility] SARS-COV-2 COVID-19 MODERNA 12+ YRS VACCINE 2023-08-15 08:00:00 Completed [facility] TDAP 2023-08-15 08:00:00 Completed [facility] Influenza Virus Vaccine Quad IM, Preserv and ABX Free 6 MO-64 YRS (FLUCELVAX) 2023-08-15 08:00:00 Completed [facility] Influenza Virus Vaccine Quad IM, Preserv and ABX Free 6 MO-64 YRS (FLUCELVAX) 2023-08-15 00:00:00 Completed [facility] Influenza Virus Vaccine (3+ yrs) 2023-08-13 00:00:00 Completed [facility] Influenza Virus Vaccine 2023-08-13 00:00:00 Completed [facility] SARS-COV-2 COVID-19 MODERNA 12+ YRS VACCINE 2023-08-13 00:00:00 Completed [facility] Influenza Virus Vaccine (3+ yrs) 2023-08-03 16:30:00 Completed [facility] Influenza Virus Vaccine 2023-08-03 16:30:00 Completed [facility] SARS-COV-2 COVID-19 MODERNA 12+ YRS VACCINE 2023-08-03 16:30:00 Completed [facility] TDAP 2023-08-03 16:30:00 Completed [facility] Influenza Virus Vaccine (3+ yrs) 2023-08-03 00:00:00 Completed [facility] Influenza Virus Vaccine 2023-08-03 00:00:00 Completed [facility] SARS-COV-2 COVID-19 MODERNA 12+ YRS VACCINE 2023-08-03 00:00:00 Completed [facility] TDAP 2023-08-03 00:00:00 Completed [facility] Influenza Virus Vaccine 2022-08-21 00:00:00 Completed [facility] Influenza Virus Vaccine 2022-08-21 00:00:00 Completed [facility] Influenza Virus Vaccine 2022-08-21 00:00:00 Completed [facility] Influenza Virus Vaccine 2022-08-21 00:00:00 Completed [facility] Influenza Virus Vaccine 2022-08-21 00:00:00 Completed [facility] Influenza Virus Vaccine 2022-08-21 00:00:00 Completed [facility] Influenza Virus Vaccine 2022-08-21 00:00:00 Completed [facility] Influenza Virus Vaccine 2022-08-21 00:00:00 Completed [facility] Influenza Virus Vaccine 2022-08-21 00:00:00 Completed [facility] Influenza Virus Vaccine 2022-08-21 00:00:00 Completed [facility] Influenza Virus Vaccine 2022-08-21 00:00:00 Completed [facility] Influenza Virus Vaccine 2022-08-21 00:00:00 Completed [facility] Influenza Virus Vaccine 2022-08-21 00:00:00 Completed [facility] Influenza Virus Vaccine 2022-08-21 00:00:00 Completed [facility] Influenza Virus Vaccine 2022-08-21 00:00:00 Completed [facility] Influenza Virus Vaccine 2022-08-21 00:00:00 Completed [facility] Influenza Virus Vaccine 2022-08-21 00:00:00 Completed [facility] Influenza Virus Vaccine 2022-08-21 00:00:00 Completed [facility] Influenza Virus Vaccine 2022-08-21 00:00:00 Completed Influenza Virus Vaccine (3+ yrs) 2021-06-07 00:00:00 Completed [facility] Influenza Virus Vaccine 2021-06-07 00:00:00 Completed [facility] SARS-COV-2 COVID-19 MODERNA 12+ YRS VACCINE 2021-06-07 00:00:00 Completed [facility] TDAP 2021-06-07 00:00:00 Completed [facility] Influenza Virus Vaccine (3+ yrs) 2021-06-07 00:00:00 Completed [facility] Influenza Virus Vaccine 2021-06-07 00:00:00 Completed [facility] SARS-COV-2 COVID-19 MODERNA 12+ YRS VACCINE 2021-06-07 00:00:00 Completed [facility] TDAP 2021-06-07 00:00:00 Completed [facility] Influenza Virus Vaccine (3+ yrs) 2021-05-13 00:00:00 Completed [facility] Influenza Virus Vaccine 2021-05-13 00:00:00 Completed [facility] SARS-COV-2 COVID-19 MODERNA 12+ YRS VACCINE 2021-05-13 00:00:00 Completed [facility] TDAP 2021-05-13 00:00:00 Completed [facility] SARS-COV-2 COVID-19 MODERNA 12+ YRS VACCINE 2020-11-23 00:00:00 Completed [facility] SARS-COV-2 COVID-19 MODERNA 12+ YRS VACCINE 2020-11-23 00:00:00 Completed [facility] SARS-COV-2 COVID-19 MODERNA 12+ YRS VACCINE 2020-11-23 00:00:00 Completed [facility] SARS-COV-2 COVID-19 MODERNA 12+ YRS VACCINE 2020-11-23 00:00:00 Completed [facility] SARS-COV-2 COVID-19 MODERNA 12+ YRS VACCINE 2020-11-23 00:00:00 Completed [facility] SARS-COV-2 COVID-19 MODERNA 12+ YRS VACCINE 2020-11-23 00:00:00 Completed [facility] SARS-COV-2 COVID-19 MODERNA 12+ YRS VACCINE 2020-11-23 00:00:00 Completed [facility] SARS-COV-2 COVID-19 MODERNA 12+ YRS VACCINE 2020-11-23 00:00:00 Completed [facility] SARS-COV-2 COVID-19 MODERNA 12+ YRS VACCINE 2020-11-23 00:00:00 Completed [facility] SARS-COV-2 COVID-19 MODERNA 12+ YRS VACCINE 2020-11-23 00:00:00 Completed [facility] SARS-COV-2 COVID-19 MODERNA 12+ YRS VACCINE 2020-11-23 00:00:00 Completed [facility] SARS-COV-2 COVID-19 MODERNA 12+ YRS VACCINE 2020-11-23 00:00:00 Completed [facility] SARS-COV-2 COVID-19 MODERNA 12+ YRS VACCINE 2020-11-23 00:00:00 Completed [facility] SARS-COV-2 COVID-19 MODERNA 12+ YRS VACCINE 2020-11-23 00:00:00 Completed [facility] SARS-COV-2 COVID-19 MODERNA 12+ YRS VACCINE 2020-11-23 00:00:00 Completed [facility] SARS-COV-2 COVID-19 MODERNA 12+ YRS VACCINE 2020-11-23 00:00:00 Completed [facility] SARS-COV-2 COVID-19 MODERNA 12+ YRS VACCINE 2020-11-23 00:00:00 Completed [facility] SARS-COV-2 COVID-19 MODERNA 12+ YRS VACCINE 2020-11-23 00:00:00 Completed [facility] SARS-COV-2 COVID-19 MODERNA 12+ YRS VACCINE 2020-11-23 00:00:00 Completed [facility] SARS-COV-2 COVID-19 MODERNA 12+ YRS VACCINE 2020-11-23 00:00:00 Completed [facility] Influenza Virus Vaccine (3+ yrs) 2020-11-18 00:00:00 Completed [facility] Influenza Virus Vaccine 2020-11-18 00:00:00 Completed [facility] TDAP 2020-11-18 00:00:00 Completed [facility] Influenza Virus Vaccine (3+ yrs) 2020-11-09 00:00:00 Completed [facility] Influenza Virus Vaccine 2020-11-09 00:00:00 Completed [facility] TDAP 2020-11-09 00:00:00 Completed [facility] Influenza Virus Vaccine 2020-08-04 00:00:00 Completed [facility] Influenza Virus Vaccine 2020-08-04 00:00:00 Completed [facility] Influenza Virus Vaccine 2020-08-04 00:00:00 Completed [facility] Influenza Virus Vaccine 2020-08-04 00:00:00 Completed [facility] Influenza Virus Vaccine 2020-08-04 00:00:00 Completed [facility] Influenza Virus Vaccine 2020-08-04 00:00:00 Completed [facility] Influenza Virus Vaccine 2020-08-04 00:00:00 Completed [facility] Influenza Virus Vaccine 2020-08-04 00:00:00 Completed [facility] Influenza Virus Vaccine 2020-08-04 00:00:00 Completed [facility] Influenza Virus Vaccine 2020-08-04 00:00:00 Completed [facility] Influenza Virus Vaccine 2020-08-04 00:00:00 Completed [facility] Influenza Virus Vaccine 2020-08-04 00:00:00 Completed [facility] Influenza Virus Vaccine 2020-08-04 00:00:00 Completed [facility] Influenza Virus Vaccine 2020-08-04 00:00:00 Completed [facility] Influenza Virus Vaccine 2020-08-04 00:00:00 Completed [facility] Influenza Virus Vaccine 2020-08-04 00:00:00 Completed [facility] Influenza Virus Vaccine 2020-08-04 00:00:00 Completed [facility] Influenza Virus Vaccine 2020-08-04 00:00:00 Completed [facility] Influenza Virus Vaccine 2020-08-04 00:00:00 Completed [facility] Influenza Virus Vaccine 2020-08-04 00:00:00 Completed [facility] Influenza Virus Vaccine 2020-08-04 00:00:00 Completed [facility] Influenza Virus Vaccine 2020-08-04 00:00:00 Completed [facility] Influenza Virus Vaccine 2020-08-04 00:00:00 Completed [facility] Influenza Virus Vaccine 2020-08-04 00:00:00 Completed [facility] Influenza Virus Vaccine 2020-08-04 00:00:00 Completed [facility] Influenza Virus Vaccine 2020-08-04 00:00:00 Completed [facility] Influenza Virus Vaccine 2020-08-04 00:00:00 Completed [facility] Influenza Virus Vaccine 2020-08-04 00:00:00 Completed [facility] Influenza Virus Vaccine 2020-08-04 00:00:00 Completed [facility] Influenza Virus Vaccine 2020-08-04 00:00:00 Completed [facility] Influenza Virus Vaccine 2020-08-04 00:00:00 Completed [facility] Influenza Virus Vaccine 2020-08-04 00:00:00 Completed [facility] Influenza Virus Vaccine 2020-08-04 00:00:00 Completed [facility] Influenza Virus Vaccine 2020-08-04 00:00:00 Completed [facility] Influenza Virus Vaccine 2020-08-04 00:00:00 Completed [facility] Influenza Virus Vaccine 2020-08-04 00:00:00 Completed [facility] TDAP 2018-07-22 00:00:00 Completed Influenza Virus Vaccine (3+ yrs) 2015-08-19 00:00:00 Completed [facility] [facility] Influenza Virus Vaccine (3+ yrs) 2015-08-19 00:00:00 Completed [facility] Influenza Virus Vaccine (3+ yrs) 2015-08-19 00:00:00 Completed [facility] Influenza Virus Vaccine (3+ yrs) 2015-08-19 00:00:00 Completed [facility] Influenza Virus Vaccine (3+ yrs) 2015-08-19 00:00:00 Completed [facility] Influenza Virus Vaccine (3+ yrs) 2015-08-19 00:00:00 Completed [facility] Influenza Virus Vaccine (3+ yrs) 2015-08-19 00:00:00 Completed [facility] Influenza Virus Vaccine (3+ yrs) 2015-08-19 00:00:00 Completed [facility] Influenza Virus Vaccine (3+ yrs) 2015-08-19 00:00:00 Completed [facility] Influenza Virus Vaccine (3+ yrs) 2015-08-19 00:00:00 Completed [facility] Influenza Virus Vaccine (3+ yrs) 2015-08-19 00:00:00 Completed [facility] Influenza Virus Vaccine (3+ yrs) 2015-08-19 00:00:00 Completed [facility] Influenza Virus Vaccine (3+ yrs) 2015-08-19 00:00:00 Completed [facility] Influenza Virus Vaccine (3+ yrs) 2015-08-19 00:00:00 Completed [facility] Influenza Virus Vaccine (3+ yrs) 2015-08-19 00:00:00 Completed [facility] Influenza Virus Vaccine (3+ yrs) 2015-08-19 00:00:00 Completed [facility] Influenza Virus Vaccine (3+ yrs) 2015-08-19 00:00:00 Completed [facility] Influenza Virus Vaccine (3+ yrs) 2015-08-19 00:00:00 Completed [facility] Influenza Virus Vaccine (3+ yrs) 2015-08-19 00:00:00 Completed [facility] Influenza Virus Vaccine (3+ yrs) 2015-08-19 00:00:00 Completed [facility] Influenza Virus Vaccine (3+ yrs) 2015-08-19 00:00:00 Completed [facility] Influenza Virus Vaccine (3+ yrs) 2015-08-19 00:00:00 Completed [facility] Influenza Virus Vaccine (3+ yrs) 2015-08-19 00:00:00 Completed [facility] Influenza Virus Vaccine (3+ yrs) 2015-08-19 00:00:00 Completed [facility] Influenza Virus Vaccine (3+ yrs) 2015-08-19 00:00:00 Completed [facility] Influenza Virus Vaccine (3+ yrs) 2015-08-19 00:00:00 Completed [facility] Influenza Virus Vaccine (3+ yrs) 2015-08-19 00:00:00 Completed [facility] Influenza Virus Vaccine (3+ yrs) 2015-08-19 00:00:00 Completed [facility] Influenza Virus Vaccine (3+ yrs) 2015-08-19 00:00:00 Completed [facility] Influenza Virus Vaccine (3+ yrs) 2015-08-19 00:00:00 Completed [facility] Influenza Virus Vaccine (3+ yrs) 2015-08-19 00:00:00 Completed [facility] Influenza Virus Vaccine (3+ yrs) 2015-08-19 00:00:00 Completed [facility] Influenza Virus Vaccine (3+ yrs) 2015-08-19 00:00:00 Completed [facility] Influenza Virus Vaccine (3+ yrs) 2015-08-19 00:00:00 Completed [facility] Influenza Virus Vaccine (3+ yrs) 2015-08-19 00:00:00 Completed [facility] Influenza, split virus, trivalent, preservative (3+ Yrs) (Afluria) 2015-08-19 00:00:00 Completed [facility] Influenza Virus Vaccine, Quad, Egg Free Unknown Completed Susu Seybold - External Pneumococcal Vaccine, Polysaccharide Unknown Completed Susu Seybol d - External Shingles IM (Shingrix) Unknown Completed Susu Seybold - External Shingles IM (Shingrix) Unknown Completed Susu Seybold - External Influenza, Injectable, Mdck, Preservative Free, Quadrivalent Unknown Completed Susu Seybold - External Influenza Virus Vaccine, No Preserv, age 6 months and up Unknown Completed Susu S eybold - External Influenza Virus Vaccine, Quad, Egg Free Unknown Completed Susu Seybold - External Pneumococcal Vaccine, Polysaccharide Unknown Completed Susu Seybol d - External Shingles IM (Shingrix) Unknown Completed Susu Seybold - External Shingles IM (Shingrix) Unknown Completed Susu Seybold - External Influenza, Injectable, Mdck, Preservative Free, Quadrivalent Unknown Completed Susu Seybold - External Influenza Virus Vaccine, No Preserv, age 6 months and up Unknown Completed Susu S eybold - External Influenza Virus Vaccine, Quad, Egg Free Unknown Completed Susu Seybold - External Pneumococcal Vaccine, Polysaccharide Unknown Completed Susu Seybol d - External Shingles IM (Shingrix) Unknown Completed Susu Seybold - External Shingles IM (Shingrix) Unknown Completed Susu Seybold - External Influenza, Injectable, Mdck, Preservative Free, Quadrivalent Unknown Completed Susu Seybold - External Influenza Virus Vaccine, No Preserv, age 6 months and up Unknown Completed Susu S eybold - External Influenza Virus Vaccine, Quad, Egg Free Unknown Completed Susu Seybold - External Pneumococcal Vaccine, Polysaccharide Unknown Completed Susu Seybol d - External Shingles IM (Shingrix) Unknown Completed Susu Seybold - External Shingles IM (Shingrix) Unknown Completed Susu Seybold - External Influenza Virus Vaccine, Unspecified Formulation Unknown Completed Susu Seybold - External AFLURIA TRIVALENT MDV Unknown Completed Susu Seybold - External Covid-19 Vaccine Moderna (Spikevax), Mrna-lnp, Shane Protein, Pf Unknown Completed Susu Latifybold - External Tdap- (Boostrix, Adacel) Unknown Completed Susu Seybold - External Influenza, Injectable, Mdck, Preservative Free, Quadrivalent Unknown Completed Susu Latifybold - External Influenza Virus Vaccine, No Preserv, age 6 months and up Unknown Completed Susu S eybold - External Influenza Virus Vaccine, Quad, Egg Free Unknown Completed Susu Seybold - External Pneumococcal Vaccine, Polysaccharide Unknown Completed Susu Latifybol d - External Shingles IM (Shingrix) Unknown Completed Susu Latifybold - External Shingles IM (Shingrix) Unknown Completed Susu Latifybold - External Influenza Virus Vaccine, Unspecified Formulation Unknown Completed Susu Seybold - External AFLURIA TRIVALENT MDV Unknown Completed Susu Latifybold - External Covid-19 Vaccine Moderna (Spikevax), Mrna-lnp, Shane Protein, Pf Unknown Completed Susu ybold - External Tdap- (Boostrix, Adacel) Unknown Completed Susu ybold - External Influenza, Injectable, Mdck, Preservative Free, Quadrivalent Unknown Completed Susu Seybold - External Influenza Virus Vaccine, No Preserv, age 6 months and up Unknown Completed Susu S eybold - External Influenza Virus Vaccine, Quad, Egg Free Unknown Completed Susu Seybold - External Pneumococcal Vaccine, Polysaccharide Unknown Completed Susu Seybol d - External Shingles IM (Shingrix) Unknown Completed Susu Seybold - External Shingles IM (Shingrix) Unknown Completed Susu Seybold - External Influenza Virus Vaccine, Unspecified Formulation Unknown Completed Susu Seybold - External AFLURIA TRIVALENT MDV Unknown Completed Susu Seybold - External Covid-19 Vaccine Moderna (Spikevax), Mrna-lnp, Shane Protein, Pf Unknown Completed Susu Latifybold - External Tdap- (Boostrix, Adacel) Unknown Completed Susu Latifybold - External Influenza, Injectable, Mdck, Preservative Free, Quadrivalent Unknown Completed Susu Latifybold - External Influenza Virus Vaccine, No Preserv, age 6 months and up Unknown Completed Susu S eybold - External Influenza Virus Vaccine, Quad, Egg Free Unknown Completed Susu Latifybold - External Pneumococcal Vaccine, Polysaccharide Unknown Completed Susu Latifybol d - External Shingles IM (Shingrix) Unknown Completed Susu Seybold - External Shingles IM (Shingrix) Unknown Completed Susu Latifybold - External Influenza Virus Vaccine, Unspecified Formulation Unknown Completed Susu Latifybold - External AFLURIA TRIVALENT MDV Unknown Completed Susu ybold - External Covid-19 Vaccine Moderna (Spikevax), Mrna-lnp, Shane Protein, Pf Unknown Completed Susu Seybmelita - External Tdap- (Boostrix, Adacel) Unknown Completed Susu Latifybold - External Influenza, Injectable, Mdck, Preservative Free, Quadrivalent Unknown Completed Susu Latifybold - External Influenza Virus Vaccine, No Preserv, age 6 months and up Unknown Completed Susu Galvan eybold - External Influenza Virus Vaccine, Quad, Egg Free Unknown Completed Susu Latifybold - External Pneumococcal Vaccine, Polysaccharide Unknown Completed Susu Viramontesol d - External Shingles IM (Shingrix) Unknown Completed Susu Latifybold - External Shingles IM (Shingrix) Unknown Completed Susu Seybold - External Influenza Virus Vaccine, Unspecified Formulation Unknown Completed Susu Latifybold - External AFLURIA TRIVALENT MDV Unknown Completed Susu Seybold - External Covid-19 Vaccine Moderna (Spikevax), Mrna-lnp, Shane Protein, Pf Unknown Completed Susu Latifybold - External Tdap- (Boostrix, Adacel) Unknown Completed Susu Latifybold - External Influenza Virus Vaccine, Egg Free Unknown Completed Susu Latif yoav - External Influenza, Injectable, Mdck, Preservative Free, Quadrivalent Unknown Completed Susu Seybold - External Influenza Virus Vaccine, No Preserv, age 6 months and up Unknown Completed Susu Galvan eybold - External Influenza, Injectable, Mdck, Preservative Free, Quadrivalent Unknown Completed Susu Seybold - External Influenza Virus Vaccine, Quad, Egg Free Unknown Completed Susu Viramontesold - External Pneumococcal Vaccine, Polysaccharide Unknown Completed Susu Viramontesol d - External Shingles IM (Shingrix) Unknown Completed Susu Latifybold - External Shingles IM (Shingrix) Unknown Completed Susu Seybold - External Influenza Virus Vaccine, Unspecified Formulation Unknown Completed Susu Seybold - External AFLURIA TRIVALENT MDV Unknown Completed Susu [facility] - External Covid-19 Vaccine Moderna (Spikevax), Mrna-lnp, Shane Protein, Pf [facility] (Boostrix, Adacel) [facility] Vacc[facility], Egg Free Unknown Completed Susu Mchugh bold - External Influenza Virus Vaccine, No Preserv, age 6 months and up Unknown Completed Susu Galvan eybold - External Influenza, Injectable, Mdck, Preservative Free, Quadrivalent Unknown Completed Susu Viramontesold - External Influenza Virus Vaccine, No Preserv, age 6 months and up Unknown Completed Susu Galvan eybold - External Influenza Virus Vaccine, Quad, Egg Free Unknown Completed Susu Viramontesold - External Pneumococcal Vaccine, Polysaccharide Unknown Completed Susu Viramontesol d - External Influenza Virus Vaccine, Quad, Egg Free Unknown Completed Susu Hunter - External Shingles IM (Shingrix) Unknown [facility]les [facility] (Shingrix) Unknown Completed Susu Latifold - External Influenza Virus Vaccine, Unspecified Formulation Unknown Completed Susu Latifold - External AFLURIA TRIVALENT MDV Unknown Com[facility] Vaccine Moderna (Spikevax), Mrna-lnp, Shane Protein, Pf Unknown Com[facility] - External Tdap- (Boostrix, Adacel) Unknown Completed Susu Viramontesold - External Influenza Virus Vaccine, Egg Free Unknown Completed Susu Mchugh bold - External Pneumococcal Vaccine, Polysaccharide Unknown Completed Susu Viramontesol d - External Shingles IM (Shingrix) Unknown Completed Susu Seybold - External Shingles IM (Shingrix) Unknown Completed Susu Wanderold - External Influenza, Injectable, Mdck, Preservative Free, Quadrivalent Unknown Completed Susu Viramontesmelita - External Influenza Virus Vaccine, No Preserv, age 6 months and up Unknown Completed Susu Cole maxwellbold - External Vital Signs Vital Name Observation Time Observation Value Evelio vieira Systolic blood pressure 2025-03-25 15:17:00 122 mm[Hg] Susu Latifybo ld - External Diastolic blood pressure 2025-03-25 15:17:00 81 mm[Hg] Susu Latifybo ld - External Heart rate 2025-03-25 15:17:00 66 /min Florencio y Seybold - External Body temperature 2025-03-25 15:17:00 36.56 April Susu Latifybold - External Respiratory rate 2025-03-25 15:17:00 16 /min Susu Seybold - External Body height 2025-03-25 15:17:00 167.6 cm Yeimi ey Seybold - External Body weight 2025-03-25 15:17:00 117.028 kg Yeimi ey Seybold - External BMI 2025-03-25 15:17:00 41.64 kg/m2 Yeimi ey Seybold - External Oxygen saturation in Arterial blood by Pulse oximetry 2025-03-25 15:17:00 97 /min Susu Viramonteso ld - External Body height 2025-03-16 13:04:00 167.6 cm Yeimi ey Seybold - External Body weight 2025-03-16 13:04:00 115.667 kg Yeimi ey Seybold - External BMI 2025-03-16 13:04:00 41.16 kg/m2 Yeimi ey Seybold - External Systolic blood pressure 2025-01-05 14:46:00 122 mm[Hg] Susu Latifybo ld - External Diastolic blood pressure 2025-01-05 14:46:00 70 mm[Hg] Susu Latifybo ld - External Heart rate 2025-01-05 14:46:00 73 /min Kelse y Seybold - External Body temperature 2025-01-05 14:46:00 36.22 April Susu Seybold - External Respiratory rate 2025-01-05 14:46:00 18 /min Susu Seybold - External Body height 2025-01-05 14:46:00 167.6 cm Yeimi ey Seybold - External Body weight 2025-01-05 14:46:00 118.389 kg Yeimi ey Seybold - External BMI 2025-01-05 14:46:00 42.13 kg/m2 Yeimi ey Seybold - External Oxygen saturation in Arterial blood by Pulse oximetry 2025-01-05 14:46:00 98 /min Susu Seybo ld - External Systolic blood pressure 2024-07-11 19:40:00 102 mm[Hg] Susu Seybo ld - External Diastolic blood pressure 2024-07-11 19:40:00 50 mm[Hg] Susu Seybo ld - External Heart rate 2024-07-11 19:40:00 77 /min Ignaciose y Seybold - External Body temperature 2024-07-11 19:40:00 36.22 April Susu Seybold - External Respiratory rate 2024-07-11 19:40:00 18 /min Susu Seybold - External Body height 2024-07-11 19:40:00 167.6 cm Yeimi ey Seybold - External Body weight 2024-07-11 19:40:00 119.75 kg Yeimi ey Seybold - External BMI 2024-07-11 19:40:00 42.61 kg/m2 Yeimi ey Seybold - External Oxygen saturation in Arterial blood by Pulse oximetry 2024-07-11 19:40:00 98 /min Susu Seybo ld - External Systolic blood pressure 2024-04-22 15:03:00 118 mm[Hg] Susu Seybo ld - External Diastolic blood pressure 2024-04-22 15:03:00 68 mm[Hg] Susu Seybo ld - External Heart rate 2024-04-22 15:03:00 77 /min Kelse y Seybold - External Respiratory rate 2024-04-22 15:03:00 18 /min Susu Seybold - External Body height 2024-04-22 15:03:00 167.6 cm Yeimi ey Seybold - External Body weight 2024-04-22 15:03:00 121.927 kg Yeimi ey Seybold - External BMI 2024-04-22 15:03:00 43.39 kg/m2 Yeimi ey Seybold - External Systolic blood pressure 2024-03-31 20:22:00 122 mm[Hg] Susu Latifybo ld - External Diastolic blood pressure 2024-03-31 20:22:00 62 mm[Hg] Susu Latifybo ld - External Heart rate 2024-03-31 20:22:00 71 /min Ignaciose y Seybold - External Body weight 2024-03-31 20:22:00 120.657 kg Yeimi ey Seybold - External BMI 2024-03-31 20:22:00 42.93 kg/m2 Yeimi ey Seybold - External Systolic blood pressure 2024-01-16 22:26:00 130 mm[Hg] Susu Seybo ld - External Diastolic blood pressure 2024-01-16 22:26:00 76 mm[Hg] Susu Latifybo ld - External Heart rate 2024-01-16 22:26:00 76 /min Ignaciose y Seybold - External Body temperature 2024-01-16 22:26:00 36.44 April Susu Seybold - External Respiratory rate 2024-01-16 22:26:00 18 /min Susu Latifybold - External Body height 2024-01-16 22:26:00 167.6 cm Yeimi ey Seybold - External Body weight 2024-01-16 22:26:00 119.296 kg Yeimi ey Seybold - External BMI 2024-01-16 22:26:00 42.45 kg/m2 Yeimi maxwell Seybold - External Oxygen saturation in Arterial blood by Pulse oximetry 2024-01-16 22:26:00 98 /min Susu Viramonteso ld - External Systolic blood pressure 2023-10-07 01:42:00 137 mm[Hg] [facility] Diastolic blood pressure 2023-10-07 01:42:00 83 mm[Hg] [facility] Heart rate 2023-10-07 01:42:00 104 /min [facility] Body temperature 2023-10-07 01:42:00 37.17 April [facility] Respiratory rate 2023-10-07 01:42:00 20 /min [facility] Body height 2023-10-07 01:42:00 167.6 cm [facility] Body weight 2023-10-07 01:42:00 114.76 kg [facility] BMI 2023-10-07 01:42:00 40.84 kg/m2 [facility] Oxygen saturation in Arterial blood by Pulse oximetry 2023-10-07 01:42:00 100 /min [facility] Systolic blood pressure 2023-10-04 13:20:00 126 mm[Hg] [facility] Diastolic blood pressure 2023-10-04 13:20:00 74 mm[Hg] [facility] Heart rate 2023-10-04 13:20:00 74 /min [facility] Respiratory rate 2023-10-04 13:20:00 18 /min [facility] Body height 2023-10-04 13:20:00 167.6 cm [facility] Body weight 2023-10-04 13:20:00 114.805 kg [facility] BMI 2023-10-04 13:20:00 40.85 kg/m2 [facility] Oxygen saturation in Arterial blood by Pulse oximetry 2023-10-04 13:20:00 98 /min [facility] Systolic blood pressure 2023-09-28 21:26:00 121 mm[Hg] [facility] Diastolic blood pressure 2023-09-28 21:26:00 72 mm[Hg] [facility] Heart rate 2023-09-28 21:26:00 83 /min [facility] Respiratory rate 2023-09-28 21:26:00 14 /min [facility] Body height 2023-09-28 21:26:00 167.6 cm [facility] Body weight 2023-09-28 21:26:00 113.399 kg [facility] BMI 2023-09-28 21:26:00 40.35 kg/m2 [facility] Oxygen saturation in Arterial blood by Pulse oximetry 2023-09-28 21:26:00 99 /min [facility] Systolic blood pressure 2023-09-04 14:09:00 143 mm[Hg] [facility] Diastolic blood pressure 2023-09-04 14:09:00 90 mm[Hg] [facility] Heart rate 2023-09-04 14:07:00 77 /min [facility]ive [facility] Body temperature 2023-09-04 14:07:00 36.67 April [facility] Respiratory rate 2023-09-04 14:07:00 22 /min [facility] Body height 2023-09-04 14:07:00 167.6 cm Univ [facility] Body weight 2023-09-04 14:07:00 111.358 kg Univ [facility] BMI 2023-09-04 14:07:00 39.62 kg/m2 Univ [facility] Oxygen saturation in Arterial blood by Pulse oximetry 2023-09-04 14:07:00 99 /min [facility] Systolic blood pressure 2023-08-15 13:02:00 133 mm[Hg] [facility] Diastolic blood pressure 2023-08-15 13:02:00 78 mm[Hg] [facility] Heart rate 2023-08-15 13:02:00 85 /min [facility]ive [facility] Body temperature 2023-08-15 13:02:00 36.33 April [facility] Body height 2023-08-15 13:02:00 167.6 cm Univ [facility] Body weight 2023-08-15 13:02:00 112.674 kg [facility] BMI 2023-08-15 13:02:00 40.09 kg/m2 Univ [facility] Oxygen saturation in Arterial blood by Pulse oximetry 2023-08-15 13:02:00 97 /min [facility] Systolic blood pressure 2023-08-03 21:27:00 119 mm[Hg] [facility] Diastolic blood pressure 2023-08-03 21:27:00 81 mm[Hg] [facility] Heart rate 2023-08-03 21:27:00 94 /min [facility]ive [facility] Body height 2023-08-03 21:27:00 167.6 cm Univ [facility] Body weight 2023-08-03 21:27:00 110.043 kg Univ [facility] BMI 2023-08-03 21:27:00 39.16 kg/m2 Univ [facility] Oxygen saturation in Arterial blood by Pulse oximetry 2023-08-03 21:27:00 95 /min [facility] Systolic blood pressure 2023-06-28 18:00:00 138 mm[Hg] [facility] Diastolic blood pressure 2023-06-28 18:00:00 76 mm[Hg] [facility] Heart rate 2023-06-28 18:00:00 75 /min [facility] Body temperature 2023-06-28 18:00:00 36.06 April [facility] Respiratory rate 2023-06-28 18:00:00 17 /min [facility] Body height 2023-06-28 18:00:00 167.6 cm [facility] Body weight 2023-06-28 18:00:00 111.177 kg [facility] BMI 2023-06-28 18:00:00 39.56 kg/m2 [facility] Oxygen saturation in Arterial blood by Pulse oximetry 2023-06-28 18:00:00 97 /min [facility] Systolic blood pressure 2023-01-16 16:00:00 138 mm[Hg] [facility] Diastolic blood pressure 2023-01-16 16:00:00 84 mm[Hg] [facility] Heart rate 2023-01-16 16:00:00 63 /min [facility]ive [facility] Body temperature 2023-01-16 16:00:00 37.17 April [facility] Respiratory rate 2023-01-16 16:00:00 16 /min [facility] Body height 2023-01-16 16:00:00 167.6 cm Univ [facility] Body weight 2023-01-16 16:00:00 113.535 kg Univ [facility] BMI 2023-01-16 16:00:00 40.40 kg/m2 Univ [facility] Oxygen saturation in Arterial blood by Pulse oximetry 2023-01-16 16:00:00 99 /min [facility] Heart rate 2022-11-27 16:14:00 76 /min [facility] Systolic blood pressure 2022-11-23 16:21:00 136 mm[Hg] [facility] Diastolic blood pressure 2022-11-23 16:21:00 86 mm[Hg] [facility] Heart rate 2022-11-23 16:21:00 100 /min [facility] Respiratory rate 2022-11-23 16:21:00 19 /min [facility] Body height 2022-11-23 16:21:00 167.6 cm [facility] Body weight 2022-11-23 16:21:00 113.807 kg [facility] BMI 2022-11-23 16:21:00 40.50 kg/m2 Univ [facility] Oxygen saturation in Arterial blood by Pulse oximetry 2022-11-23 16:21:00 97 /min [facility] Systolic blood pressure 2022-11-17 17:47:00 125 mm[Hg] [facility] Diastolic blood pressure 2022-11-17 17:47:00 78 mm[Hg] [facility] Heart rate 2022-11-17 17:47:00 97 /min [facility] Body temperature 2022-11-17 17:47:00 37.28 April [facility] Respiratory rate 2022-11-17 17:47:00 17 /min [facility] Body weight 2022-11-17 17:47:00 114.306 kg [facility] BMI 2022-11-17 17:47:00 40.67 kg/m2 Univ [facility] Oxygen saturation in Arterial blood by Pulse oximetry 2022-11-17 17:47:00 99 /min [facility] Systolic blood pressure 2022-10-27 16:57:00 140 mm[Hg] [facility] Diastolic blood pressure 2022-10-27 16:57:00 83 mm[Hg] [facility] Heart rate 2022-10-27 16:57:00 81 /min [facility] Body weight 2022-10-27 16:57:00 116.847 kg Univ [facility] BMI 2022-10-27 16:57:00 41.58 kg/m2 Univ [facility] Oxygen saturation in Arterial blood by Pulse oximetry 2022-10-27 16:57:00 100 /min [facility] Systolic blood pressure 2022-10-03 15:44:00 134 mm[Hg] [facility] Diastolic blood pressure 2022-10-03 15:44:00 83 mm[Hg] [facility] Heart rate 2022-10-03 15:44:00 83 /min Unive [facility] Oxygen saturation in Arterial blood by Pulse oximetry 2022-10-03 15:44:00 97 /min [facility] Respiratory rate 2022-10-03 15:40:00 16 /min [facility] Body height 2022-10-03 15:40:00 167.6 cm Univ [facility] Body weight 2022-10-03 15:40:00 117.3 kg Univ [facility] BMI 2022-10-03 15:40:00 41.74 kg/m2 Univ [facility] Systolic blood pressure 2022-09-03 15:40:00 133 mm[Hg] [facility] Diastolic blood pressure 2022-09-03 15:40:00 82 mm[Hg] [facility] Heart rate 2022-09-03 15:40:00 78 /min Unive [facility] Body temperature 2022-09-03 15:40:00 37 April [facility] Respiratory rate 2022-09-03 15:40:00 16 /min [facility] Body height 2022-09-03 15:40:00 167.6 cm [facility] 2022-09-03 15:40:00 117.527 kg Univ [facility] BMI 2022-09-03 15:40:00 41.82 kg/m2 Univ [facility] Oxygen saturation in Arterial blood by Pulse oximetry 2022-09-03 15:40:00 100 /min [facility] Systolic blood pressure 2022-04-07 16:20:00 138 mm[Hg] [facility] Diastolic blood pressure 2022-04-07 16:20:00 83 mm[Hg] [facility] Heart rate 2022-04-07 16:20:00 84 /min [facility] Body height 2022-04-07 16:20:00 167.6 cm [facility] Body weight 2022-04-07 16:20:00 120.657 kg [facility] BMI 2022-04-07 16:20:00 42.93 kg/m2 [facility] Oxygen saturation in Arterial blood by Pulse oximetry 2022-04-07 16:20:00 98 /min [facility] Body height 2022-03-15 13:33:00 [facility] Body weight 2022-03-15 13:33:00 121.11 [facility] BMI 2022-03-15 13:33:00 44.43 kg/m2 [facility] Body height 2022-03-10 13:49:00 165.1 cm [facility] Body weight 2022-03-10 13:49:00 121.11 kg [facility] BMI 2022-03-10 13:49:00 44.43 kg/m2 [facility] Body height 2022-03-01 13:38:00 165.1 cm [facility] Body weight 2022-03-01 13:38:00 121.11 kg [facility] BMI 2022-03-01 13:38:00 44.43 kg/m2 [facility] Body height 2022-02-10 13:45:00 165.1 cm [facility] Body weight 2022-02-10 13:45:00 121.11 kg [facility] BMI 2022-02-10 13:45:00 44.43 kg/m2 [facility] Body height 2022-01-04 14:33:00 165.1 cm [facility] Body weight 2022-01-04 14:33:00 121.292 [facility] BMI 2022-01-04 14:33:00 44.50 kg/m2 [facility] Body height 2021-11-03 15:13:00 167.6 cm [facility] Body weight 2021-11-03 15:13:00 117.3 kg [facility] BMI 2021-11-03 15:13:00 41.74 kg/m2 [facility] Respitory Rate 2020-10-08 20:45:00 [facility] Systolic (mm Hg) 2020-10-08 20:45:00 [facility] Diastolic (mm Hg) 2020-10-08 20:45:00 [facility] Respitory Rate 2020-10-08 20:15:00 [facility] Systolic (mm Hg) 2020-10-08 20:15:00 [facility] Diastolic (mm Hg) 2020-10-08 20:15:00 [facility] Respitory Rate 2020-10-08 19:45:00 [facility] Systolic (mm Hg) 2020-10-08 19:45:00 [facility] Diastolic (mm Hg) 2020-10-08 19:45:00 [facility] Height 2020-10-05 22:15:00 167.64 cm [facility] Weight 2020-10-05 22:15:00 [facility] BMI Calculated 2020-10-05 22:15:00 [facility] Height 2020-10-05 20:37:00 167.64 cm [facility] Weight 2020-10-05 20:37:00 [facility] BMI Calculated 2020-10-05 20:37:00 [facility] Procedures Procedure Date / Time Performed Performing Clinician Source MEDICAL RELEASE/CLEARANCE FORMS 2024-01-17 06:01:00 Doctor Unassigned, [place] [facility] MEDICAL RELEASE/CLEARANCE FORMS 2024-01-09 06:01:00 Doctor Unassigned, [place] [facility] INSURANCE CORRESPONDENCE 2023-10-16 06:01:00 Doc tor Unassigned, [place] [facility] POCT MOLECULAR FLU 2023-10-07 02:13:00 Unknown, Attend ing [facility] POCT SARS-COV-2 ANTIGEN (BINAX NOW) 2023-10-07 02:05:00 Julio Ford [facility] POCT MOLECULAR STREP 2023-10-07 01:50:00 Unknown, Hannah ya [facility] POCT URINALYSIS 2023-10-07 01:41:00 Jyoti Mercer [facility] TSH, 3RD GENERATION-Q 2023-10-05 00:00:00 Callum Reyes [facility] VITAMIN D, 25-HYDROXY,$LC/MS/MS-Q 2023-10-05 00:00:00 Pina Reyes [facility] POCT MOLECULAR STREP 2023-09-04 14:12:00 Unknown, Hannah ya [facility] FLU VACC (), 6 MO-64 YRS, .5ML, IM, QUAD (FLUCELVAX) 2023-08-15 13:29:10 Pina Reyes [facility] POCT HEMOGLOBIN A1C TEST 2023-08-03 21:30:00 Oscar Arizmendi [facility] ASSIGNMENT OF BENEFITS 2023-06-28 17:50:27 Doccrow muhammad Unassigned, [place] [facility] POCT URINALYSIS 2023-01-16 15:53:00 Yehuda Britton [facility] PATIENT FINANCIAL POLICY 2023-01-16 15:44:10 Doctor Unassigned, [place] [facility] POCT SARS-COV-2 ANTIGEN (BINAX NOW) 2022-11-17 17:47:00 Yehuda Britton [facility] POCT HEMOGLOBIN A1C TEST 2022-10-27 17:04:00 Oscar Arizmendi [facility] INSURANCE CORRESPONDENCE 2022-10-24 06:01:00 Doc linda Unassigned, [place] [facility] US ABDOMEN COMPLETE 2022-10-06 17:03:36 Requisition, P reanna [facility] CONSENT/REFUSAL FOR DIAGNOSIS AND TREATMENT 2022-10-06 15:36:25 Doctor Unassigned, [place] [facility] ASSIGNMENT OF BENEFITS 2022-10-06 15:36:11 Docto r Unassigned, [place] [facility] POCT MOLECULAR FLU 2022-09-03 16:05:00 Unknown, Attend ing [facility] POCT SARS-COV-2 ANTIGEN (BINAX NOW) 2022-09-03 15:58:00 Laura Smith [facility] XR LUMBAR SPINE 4 VW 2022-08-16 20:34:49 Requisition, Paper [facility] XR SACROILIAC JOINTS <3 VW 2022-08-16 20:34:49 Requisi tion, Paper [facility] XR PELVIS <3 VW 2022-08-16 20:34:49 Requisition, Paper [facility] MI ARTHROCENTESIS ASPIR&/INJ MAJOR JT/BURSA W/O 2022-03-15 14:39:38 Iker [facility] MI ARTHROCENTESIS ASPIR&/INJ MAJOR JT/BURSA W/O 2022-03-10 13:43:53 Iker Dwight [facility] MI ARTHROCENTESIS ASPIR&/INJ MAJOR JT/BURSA W/O 2022-03-01 14:21:55 Iker [facility] MI ARTHROCENTESIS ASPIR&/INJ MAJOR JT/BURSA W/O 2022-01-04 15:29:49 Iker Dwight [facility] Cholecystectomy [facility] Cystocele [facility] Hysterectomy [facility] Repair of meniscus [facility] Encounters Start Date/Time End Date/Time Encounter Type Admission Type Attending Clinicians Care Facility Care Department Encounter ID Source 2022-09-12 12:16:50 Outpatient [facility] [id number] [facility] 2022-09-11 09:59:41 Outpatient [facility] [id number] [facility] 2022-01-04 09:30:26 Outpatient DWIGHT SEVERINO [facility] [id number] [facility] 2022-01-04 08:41:48 Outpatient [facility] [id number] [facility] 2021-09-20 08:26:47 Emergency [facility] [id number] [facility] 2021-09-19 04:01:58 Emergency [facility] [id number] [facility] 2025-07-03 10:10:00 2025-07-03 10:10:00 Outpatient WILLIE RIVERA SUSU MARX [id number] [facility] 2025-05-27 11:20:00 2025-05-27 11:20:00 Outpatient MAC CAMP SUSU MARX [id number] [facility] 2025-04-30 13:45:00 2025-04-30 13:45:00 Outpatient SUSU MARX [id number] [facility] 2025-04-22 16:30:00 2025-04-22 16:30:00 Outpatient MUSHTAQ DELCID [id number] [facility] 2025-04-21 08:00:00 2025-04-21 08:00:00 Outpatient HALMIRYAM Desire JOHANA SUSU MARX [id number] [facility] 2025-04-14 20:15:00 2025-04-14 20:15:00 Outpatient ELLISSARAH STEWART [facility] [id number] [facility] 2025-04-09 00:00:00 2025-04-09 00:00:00 Outpatient CAITLIN YBARRA [id number] [facility] 2025-04-07 00:00:00 2025-04-07 00:00:00 Outpatient MUSHTAQ DELCID [id number] [facility] 2025-04-02 00:00:00 2025-04-02 00:00:00 Outpatient MARSHA DYSON [id number] [facility] 2025-04-01 00:00:00 2025-04-01 00:00:00 Outpatient RADIOLOGY, DEPT SUSU MARX [id number] [facility] 2025-03-31 00:00:00 2025-03-31 00:00:00 Outpatient MUSHTAQ DELCID [id number] [facility] 2025-03-31 00:00:00 2025-03-31 00:00:00 Outpatient MUSHTAQ DELCID [id number] [facility] 2025-03-31 00:00:00 2025-03-31 00:00:00 Outpatient MARSHA DYSON SUSU MARX [id number] [facility] 2025-03-30 07:15:00 2025-03-30 07:15:00 Outpatient SUSU MARX [id number] [facility] 2025-03-27 00:00:00 2025-03-27 00:00:00 Outpatient WILLIE RIVERA SUSU SUSU [id number] [facility] 2025-03-25 16:00:00 2025-03-25 16:00:00 Outpatient MUSHTAQ DELCID SSUU MARX [id number] [facility] 2025-03-25 10:50:00 2025-03-25 10:50:00 Outpatient MINDY SUSU MARX [id number] [facility] 2025-03-25 10:00:00 2025-03-25 10:00:00 Outpatient MUSHTAQ DELCID SUSU MARX [id number] [facility] 2025-03-21 00:00:00 2025-03-21 00:00:00 Outpatient HARISH SINGH SUSU MARX [id number] [facility] 2025-03-19 00:00:00 2025-03-19 00:00:00 Outpatient SUSU MARX [id number] [facility] 2025-03-16 08:10:00 2025-03-16 08:10:00 Outpatient CAITLIN YBARRA [id number] [facility] 2025-03-16 08:00:00 2025-03-16 08:00:00 Outpatient CAITLIN YBARRA [id number] [facility] 2025-03-12 08:40:00 2025-03-12 08:40:00 Outpatient CAITLIN YBARRA [id number] [facility] 2025-03-09 00:00:00 2025-03-09 00:00:00 Outpatient NICOLEZAINAJenny MARX [id number] [facility] 2025-03-06 00:00:00 2025-03-06 00:00:00 Outpatient MARLI PATTERSON SUSU MARX [id number] [facility] 2025-03-03 11:30:00 2025-03-03 11:30:00 Outpatient WILLIE RIVERA SUSU MARX [id number] [facility] 2025-03-03 10:10:00 2025-03-03 10:10:00 Outpatient CAITLIN YBARRA SUSU MARX [id number] [facility] 2025-02-26 00:00:00 2025-02-26 00:00:00 Outpatient WILLIE RIVERA SUSU MARX [id number] [facility] 2025-02-26 00:00:00 2025-02-26 00:00:00 Outpatient BHAVIN MUSHTAQ MARX [id number] [facility] 2025-02-17 13:15:00 2025-02-17 13:15:00 Outpatient SUSU MARX [id number] [facility] 2025-02-02 13:30:00 2025-02-02 13:30:00 Outpatient WILLIE RIVERA SUSU MARX [id number] [facility] 2025-01-30 00:00:00 2025-01-30 00:00:00 Outpatient MUSHTAQ DELCID [id number] [facility] 2025-01-13 09:15:00 2025-01-13 09:15:00 Outpatient APRIL ONI MARX [id number] [facility] 2025-01-13 00:00:00 2025-01-13 00:00:00 Outpatient MUSHTAQ DELCID [id number] [facility] 2025-01-12 00:00:00 2025-01-12 00:00:00 Outpatient MUSHTAQ DELCID [id number] [facility] 2025-01-12 00:00:00 2025-01-12 00:00:00 Outpatient MUSHTAQ DELCID [id number] [facility] 2025-01-10 00:00:00 2025-01-10 00:00:00 Outpatient MUSHTAQ DELCID [id number] [facility] 2025-01-09 12:05:00 2025-01-09 12:05:00 Outpatient SUSU MARX [id number] [facility] 2025-01-05 09:50:00 2025-01-05 09:50:00 Outpatient LABMyranda SUSU MARX [id number] [facility] 2025-01-05 08:30:00 2025-01-05 08:30:00 Outpatient BHAVIN MUSHTAQ SUSU MARX [id number] [facility] 2024-12-24 00:00:00 2024-12-24 00:00:00 Outpatient MUSHTAQ DELCID [id number] [facility] 2024-12-11 00:00:00 2024-12-11 00:00:00 Outpatient MD SUSU PATRICK [id number] [facility] 2024-11-28 14:30:00 2024-11-28 14:30:00 Outpatient MARSHA DYSON [id number] [facility] 2024-11-28 00:00:00 2024-11-28 00:00:00 Outpatient MARSHA DYSON [id number] [facility] 2024-11-25 00:00:00 2024-11-25 00:00:00 Outpatient MARSHA DYSON [id number] [facility] 2024-11-25 00:00:00 2024-11-25 00:00:00 Outpatient MD SUSU PATRICK [id number] [facility] 2024-11-24 00:00:00 2024-11-24 00:00:00 Outpatient SUSU MARX [id number] [facility] 2024-11-24 00:00:00 2024-11-24 00:00:00 Outpatient SUSU MARX [id number] [facility] 2024-11-24 00:00:00 2024-11-24 00:00:00 Outpatient MUSHTAQ DELCID [id number] [facility] 2024-11-21 16:00:00 2024-11-21 16:00:00 Outpatient MARSHA DYSON [id number] [facility] [place] 2024-11-18 09:35:00 2024-11-18 09:35:00 Outpatient LAB90 SUSU MARX [id number] [facility] 2024-11-08 00:00:00 2024-11-13 16:54:14 Molly Taylor [facility] [id number] [id number] [id number] [facility] 2024-11-07 00:00:00 2024-11-07 00:00:00 Outpatient SUSU MARX [id number] [facility] 2024-10-29 00:00:00 2024-10-29 00:00:00 Outpatient MD SUSU PATRICK [id number] [facility] 2024-10-28 00:00:00 2024-10-28 00:00:00 Outpatient MD SUSU PATRICK [id number] [facility] 2024-10-24 15:30:00 2024-10-24 15:30:00 Outpatient MARSHA DYSON [id number] [facility] 2024-10-24 00:00:00 2024-10-24 00:00:00 Outpatient MARSHA DYSON [id number] [facility] 2024-10-23 00:00:00 2024-10-23 00:00:00 Outpatient MARSHA DYSON [id number] [facility] 2024-10-20 11:30:00 2024-10-20 11:30:00 Outpatient LAB90 SUSU MARX [id number] [facility] 2024-10-20 00:00:00 2024-10-20 00:00:00 Outpatient MUSHTAQ DELCID [id number] [facility] 2024-10-07 00:00:00 2024-10-09 11:39:30 Molly TaylorHVivienne [facility] [id number] [id number] [id number] [facility] 2024-10-09 00:00:00 2024-10-09 00:00:00 Outpatient MUSHTAQ DELCID [id number] [facility] 2024-10-04 00:00:00 2024-10-06 11:11:02 Molly TaylorH. [facility] [id number] [id number] [id number] [facility] 2024-10-01 07:40:00 2024-10-01 07:40:00 Outpatient SUSU MARX [id number] [facility] 2024-09-29 15:30:00 2024-09-29 15:30:00 Outpatient MOLLY SANTIAGO [facility] [id number] [facility] 2024-09-28 00:00:00 2024-09-28 00:00:00 Outpatient MUSHTAQ DELCID [id number] [facility] 2024-09-27 00:00:00 2024-09-27 00:00:00 Outpatient HARISH SINGH [id number] [facility] 2024-09-26 00:00:00 2024-09-26 00:00:00 Outpatient MARSHA DYSON [id number] [facility] 2024-09-24 00:00:00 2024-09-24 00:00:00 Outpatient MARSHA DYSON [id number] [facility] 2024-09-22 00:00:00 2024-09-22 00:00:00 Outpatient MARSHA DYSON [id number] [facility] 2024-09-11 00:00:00 2024-09-11 00:00:00 Outpatient SUSU SUSU [id number] [facility] 2024-09-11 00:00:00 2024-09-11 00:00:00 Outpatient MUSHTAQ DELCIDBOBBY MARX [id number] [facility] 2024-08-28 00:00:00 2024-08-28 00:00:00 Outpatient MUSHTAQ DELCID SUSU MARX [id number] [facility] 2024-08-21 00:00:00 2024-08-21 00:00:00 Outpatient MARSHA DYSON [id number] [facility] 2024-08-18 00:00:00 2024-08-18 00:00:00 Outpatient WILLIE RIVERA SUSU MARX [id number] [facility] 2024-08-15 00:00:00 2024-08-15 00:00:00 Outpatient NICOLE TAPIAJenny MARX [id number] [facility] 2024-08-11 00:00:00 2024-08-11 00:00:00 Outpatient SUSU MARX [id number] [facility] 2024-08-10 00:00:00 2024-08-10 00:00:00 Outpatient MUSHTAQ DELCID SUSU MARX [id number] [facility] 2024-07-18 00:00:00 2024-07-18 00:00:00 Outpatient MARSHA DYSON [id number] [facility] 2024-07-17 00:00:00 2024-07-17 00:00:00 Outpatient TAMERA DELCIDTHIA SUSU MARX [id number] [facility] 2024-07-15 08:30:00 2024-07-15 08:30:00 Outpatient BHAVIN MUSHTAQTYRONE MARX [id number] [facility] 2024-07-15 00:00:00 2024-07-15 00:00:00 Outpatient MARSHA DYSON [id number] [facility] 2024-07-14 09:00:00 2024-07-14 09:00:00 Outpatient MARSHA DYSONBOBBY MARX [id number] [facility] 2024-07-11 15:15:00 2024-07-11 15:15:00 Outpatient LAB90 SUSU SUSU [id number] [facility] 2024-07-11 14:30:00 2024-07-11 14:30:00 Outpatient TAMERA DELCIDTHIA SUSU MARX [id number] [facility] 2024-06-15 00:00:00 2024-06-15 00:00:00 Outpatient MUSHTAQ DELCID SUSU MARX [id number] [facility] 2024-06-09 00:00:00 2024-06-09 00:00:00 Outpatient KARIS MARSHA SUSU MARX [id number] [facility] 2024-06-02 16:00:00 2024-06-02 16:00:00 Outpatient KARISLEEANNE DREWA SUSU MARX [id number] [facility] 2024-05-28 07:30:00 2024-05-28 07:30:00 Outpatient NT90 SUSU SUSU [id number] [facility] 2024-05-28 07:30:00 2024-05-28 07:30:00 Outpatient NT90 SUSU MARX [id number] [facility] 2024-05-20 10:00:00 2024-05-20 10:00:00 Outpatient MARSHA DYSON [id number] [facility] 2024-05-08 16:30:00 2024-05-08 16:30:00 Outpatient MUSHTAQ DELCID SUSU MARX [id number] [facility] 2024-05-08 00:00:00 2024-05-08 00:00:00 Outpatient BHAVINMUSHTAQ [id number] [facility] 2024-05-02 00:00:00 2024-05-02 00:00:00 Outpatient MUSTHAQ DELCID [id number] [facility] 2024-05-01 08:00:00 2024-05-01 08:00:00 Outpatient JESSICA BANSAL [id number] [facility] 2024-04-25 00:00:00 2024-04-25 00:00:00 Outpatient MARSHA DYSON [id number] [facility] 2024-04-24 00:00:00 2024-04-24 00:00:00 Outpatient AMRSHA DYSON [id number] [facility] 2024-04-23 00:00:00 2024-04-23 00:00:00 Outpatient MARSHA DYSON [id number] [facility] 2024-04-23 00:00:00 2024-04-23 00:00:00 Outpatient MARSHA DYSON [id number] [facility] 2024-04-22 10:00:00 2024-04-22 10:00:00 Outpatient MARSHA DYSON [id number] [facility] 2024-04-22 00:00:00 2024-04-22 00:00:00 Outpatient SUSU ALCOCER [id number] [facility] 2024-04-22 00:00:00 2024-04-22 00:00:00 Outpatient MARSHA ARMSTRONG [id number] [facility] 2024-04-22 00:00:00 2024-04-22 00:00:00 Outpatient MARSHA DYSON [id number] [facility] 2024-04-22 00:00:00 2024-04-22 00:00:00 Outpatient MARSHA DYSON [id number] [facility] 2024-04-16 16:30:00 2024-04-16 16:30:00 Outpatient MUSHTAQ DELCID [id number] [facility] 2024-04-07 00:00:00 2024-04-07 00:00:00 Outpatient MUSHTAQ DELCID [id number] [facility] 2024-03-31 16:00:00 2024-03-31 16:00:00 Outpatient [facility]KO [facility] [id number] [facility] 2024-03-31 15:15:00 2024-03-31 15:15:00 Outpatient RONI QUISPE SUSU MARX [id number] [facility] 2024-03-26 00:00:00 2024-03-26 00:00:00 Outpatient BHAVIN MUSHTAQ [facility]U [facility]X [id number] [facility] 2024-03-06 15:00:00 2024-03-06 15:00:00 Outpatient JAYJAY MCCLOUD SUSU MARX [id number] [facility] 2024-02-12 11:15:00 2024-02-12 11:15:00 Outpatient TIM HENRIQUEZ SUSU MARX [id number] [facility] 2024-02-05 16:10:00 2024-02-05 16:10:00 Outpatient VALERIY RIVERAMAJenny MARX [id number] [facility] 2024-02-05 00:00:00 2024-02-05 00:00:00 Outpatient MUSHTAQ DELCID SUSU MARX [id number] [facility] 2024-02-04 11:10:00 2024-02-04 11:10:00 Outpatient WILLIE RIVERA SUSU MARX [id number] [facility] 2024-01-17 00:00:00 2024-01-17 00:00:00 Telephone Molly Brown [facility] ..840.114 350.1.13.10 4.2.7.2.686 [id number] [facility] 2024-01-17 00:00:00 2024-01-17 00:00:00 Orders Only Doctor Unassigned, [place] [facility] .840.114 350.1.13.10 4.2.7.2.686 [id number] [facility] 2024-01-16 16:55:00 2024-01-16 16:55:00 Outpatient LAB90 SUSU MARX [id number] [facility] 2024-01-16 16:30:00 2024-01-16 16:30:00 Outpatient MUSHTAQ DELCID SUSU MARX [id number] [facility] 2024-01-09 00:00:00 2024-01-09 00:00:00 Orders Only Doctor Unassigned, [place] [facility] 1..840.114 350.1.13.10 4.2.7.2.686 [id number] [facility] 2024-01-01 00:00:00 2024-01-01 00:00:00 Telephone Molly Brown [facility] 1..840.114 350.1.13.10 4.2.7.2.686 [id number] [facility] 2023-12-31 13:30:00 2023-12-31 13:30:00 Outpatient TAMERA DELCIDTHIA SUSU MARX [id number] [facility] 2023-12-28 00:00:00 2023-12-28 00:00:00 Outpatient TAMERA DELCIDTYRONE MARX [id number] [facility] 2023-12-24 00:00:00 2023-12-24 00:00:00 Outpatient MD SUSU PATRICK [id number] [facility] 2023-12-21 09:35:00 2023-12-21 09:35:00 Outpatient LAB90 SUSU MARX [id number] [facility] 2023-12-19 15:00:00 2023-12-19 15:00:00 Outpatient BHAVIN MUSHTAQTYRONE MARX [id number] [facility] 2023-12-04 15:30:00 2023-12-04 15:30:00 Outpatient GENEVA MCKEON [facility] [id number] [facility] 2023-12-04 00:00:00 2023-12-04 00:00:00 Patient Secure Msg Doctor Unassigned, [place] [facility] 1..840.114 350.1.13.10 4.2.7.2.686 [id number] [facility] 2023-11-30 00:00:00 2023-11-30 00:00:00 Telephone P[facility] Re[facility] 1.2840.114 350.1.13.10 4.2.7.2.686 [id number] [facility] 2023-10-27 00:00:00 2023-10-27 00:00:00 Oscar Lockett [facility] 1.114 350.1.13.10 4.2.7.2.686 [id number] [facility] 2023-10-19 00:00:00 2023-10-19 00:00:00 Outpatient MOLLY SANTIAGO [facility] [id number] [facility] 2023-10-16 00:00:00 2023-10-16 00:00:00 Patient Secure Msg Doctor Unassigned, [place] [facility] 1.114 350.1.13.10 4.2.7.2.686 [id number] [facility] 2023-10-16 00:00:00 2023-10-16 00:00:00 Orders Only Doctor Unassigned, [place] [facility] 1..114 350.1.13.10 4.2.7.2.686 [id number] [facility] 2023-10-06 19:40:00 2023-10-06 20:00:00 Urgent Care Julio Ford Unknown, Attending [facility] MEDICAL OFFICE BUILDING 1.284.114 350.1.13.10 4.2.7.2.686 [id number] [facility] 2023-10-06 19:40:00 2023-10-06 19:40:00 Outpatient R JULIO FORD [facility] [id number] [facility] 2023-10-05 09:15:00 2023-10-05 11:44:20 Grain Manager Visit Lab, Ang - Pina Ya [facility] MEDICAL OFFICE BUILDING 1..840.114 350.1.13.10 4.2.7.2.686 [id number] [facility] 2023-10-05 10:00:00 2023-10-05 10:00:00 Outpatient R PINA REYES [facility] [id number] [facility] 2023-10-05 09:15:00 2023-10-05 09:15:00 Outpatient R PINA REYES [facility] [id number] [facility] 2023-10-05 00:00:00 2023-10-05 00:00:00 Telephone Pina Reyes [facility] [place] MEDICAL OFFICE BUILDING 1..840.114 350.1.13.10 4.2.7.2.686 [id number] [facility] 2023-10-05 00:00:00 2023-10-05 00:00:00 Orders Only Pina Reyes [facility] 1.840.114 350.1.13.10 4.2.7.2.686 [id number] [facility] 2023-10-04 07:00:00 2023-10-04 07:36:58 Outpatient R PINA REYES [facility] [id number] [facility] 2023-10-04 07:00:00 2023-10-04 07:36:58 Office Visit Pina Reyes [facility] [place] MEDICAL OFFICE BUILDING 1..840.114 350.1.13.10 4.2.7.2.686 [id number] 044 [id number] [facility] 2023-09-28 15:30:00 2023-09-28 15:55:09 Outpatient R MOLLY BROWN [facility] [id number] [facility] 2023-09-28 15:30:00 2023-09-28 15:55:09 [facility] Visit [facility] BU[facility] 1.2.840.114 350.1.13.10 4.2.7.2.686 [id number] [facility] 2023-09-20 00:00:00 2023-09-20 00:00:00 Telephone Molly Brown [facility] BUILDING 1.2.840.114 350.1.13.10 4.2.7.2.686 [id number] [id number] [facility] 2023-09-10 16:00:00 2023-09-10 23:59:00 Outpatient R MOLLY BROWN [facility] [id number] [facility] 2023-09-10 16:00:00 2023-09-10 23:59:00 Hospital Encounter Molly Brown [facility] BUILDING 1.2.840.114 350.1.13.10 4.2.7.2.686 [id number] [facility] 2023-09-05 00:00:00 2023-09-05 00:00:00 Patient Secure Msg Doctor Unassigned, [place] [facility] 1.284.114 350.1.13.10 4.2.7.2.686 [id number] [facility] 2023-09-04 09:00:00 2023-09-04 09:33:33 Outpatient R DONA ACUÑA [facility] [id number] [facility] 2023-09-04 09:00:00 2023-09-04 09:33:33 Urgent Care Dona Acuña Unknown, Attending [facility] BUILDING 1.2.840.114 350.1.13.10 4.2.7.2.686 [id number] 370 [id number] [facility] 2023-09-04 00:00:00 2023-09-04 00:00:00 Telephone Molly Brown [facility] PROFESSIO NAL BUILDING 1..840.114 350.1.13.10 4.2.7.2.686 [id number] [id number] [facility] 2023-08-31 00:00:00 2023-08-31 00:00:00 Patient Secure Msg Doctor Unassigned, [place] [facility] 1..840.114 350.1.13.10 4.2.7.2.686 [id number] [facility] 2023-08-23 09:44:47 2023-08-23 23:59:00 Outpatient R RADIOLOGY [facility] [id number] [facility] 2023-08-23 09:40:00 2023-08-23 23:59:00 Hospital Encounter Radiology [facility] 1.2.840.114 350.1.13.10 4.2.7.2.686 [id number] [facility] 2023-08-22 00:00:00 2023-08-22 00:00:00 Outpatient GC_GCBZW_Ka diyala_S PRIV PRIV [id number] [facility] 2023-08-21 00:00:00 2023-08-21 00:00:00 Outpatient GC_GCBZW_Ka diyala_S PRIV PRIV [id number] [facility] 2023-08-15 09:30:00 2023-08-15 09:30:00 Outpatient R MOLLY BROWN [facility] [id number] [facility] 2023-08-15 08:00:00 2023-08-15 08:46:33 Outpatient R BRUNO, PINA [facility] [id number] [facility] 2023-08-15 08:00:00 2023-08-15 08:46:33 Office Visit Pina Reyes [facility] 1..840.114 350.1.13.10 4.2.7.2.686 [id number] [facility] 2023-08-13 00:00:00 2023-08-13 00:00:00 Outpatient GC_GCBZW_Ka diyala_S PRIV PRIV [id number] [facility] 2023-08-13 00:00:00 2023-08-13 00:00:00 Molly Taylor [facility] NAL BUILDING 1.840.114 350.1.13.10 4.2.7.2.686 [id number] [facility] 2023-08-03 16:30:00 2023-08-03 17:14:10 Outpatient R OSCAR ARIZMENDI [facility] [id number] [facility] 2023-08-03 16:30:00 2023-08-03 17:14:10 Office Visit Oscar [facility] 1.840.114 350.1.13.10 4.2.7.2.686 [id number] [facility] 2023-08-03 00:00:00 2023-08-03 00:00:00 Patient Secure Msg Oscar Arizmendi [facility] BU[facility] 1..840.114 350.1.13.10 4.2.7.2.686 [id number] [facility] 2023-07-25 16:00:00 2023-07-25 16:00:00 Outpatient R MOLLY BROWN [facility] [id number] [facility] 2023-06-28 13:00:00 2023-06-28 13:41:26 Outpatient R MOLLY BROWN [facility] [id number] [facility] 2023-06-28 13:00:00 2023-06-28 13:41:26 [facility] 1.2.840.114 350.1.13.10 4.2.7.2.686 [id number] [facility] 2023-06-28 13:30:00 2023-06-28 13:30:00 Outpatient R MOLLY BROWN [facility] [id number] [facility] 2023-06-28 00:00:00 2023-06-28 00:00:00 Orders Only Doctor Unassigned, [place] [facility] 1.2.840.114 350.1.13.10 4.2.7.2.686 [id number] [facility] 2023-06-28 00:00:00 2023-06-28 00:00:00 Telephone Geneva Terrazas [facility] OFF[facility] BUILDING 1.2.840.114 350.1.13.10 4.2.7.2.686 [id number] [facility] 2023-06-25 00:00:00 2023-06-25 00:00:00 Outpatient GC_GCBZW_Ka diyala_S PRIV PRIV [id number] [facility] 2023-06-19 00:00:00 2023-06-19 00:00:00 Outpatient GC_GCBZW_Ka diyala_S PRIV PRIV [id number] [facility] 2023-06-18 00:00:00 2023-06-18 00:00:00 Outpatient GC_GCBZW_Ka diyala_S PRIV PRIV [id number] [facility] 2023-06-15 00:00:00 2023-06-15 00:00:00 Outpatient GC_GCBZW_Ka diyala_S PRIV PRIV [id number] [facility] 2023-05-08 15:30:00 2023-05-08 15:30:00 Outpatient R GENEVA TERRAZAS [facility] [id number] [facility] 2023-05-04 09:30:00 2023-05-04 09:30:00 Outpatient R OSCAR ARIZMENDI [facility] [id number] [facility] 2023-04-02 09:30:00 2023-04-02 09:30:00 Outpatient R MOLLY BROWN [facility] [id number] [facility] 2023-01-16 09:40:00 2023-01-16 10:14:16 Outpatient R YEHUDA BRITTON [facility] [id number] [facility] 2023-01-16 09:40:00 2023-01-16 10:00:00 Urgent Care Yehuda Britton Unknown, Attending [facility] MEDICAL OFFICE BUILDING 1.840.114 350.1.13.10 4.2.7.2.686 [id number] [facility] 2023-01-16 00:00:00 2023-01-16 00:00:00 Orders Only Doctor Unassigned, [place] [facility] 1.84.114 350.1.13.10 4.2.7.2.686 [id number] [facility] 2023-01-16 00:00:00 2023-01-16 00:00:00 Telephone Yehuda Britton [facility] 1.840.114 350.1.13.10 4.2.7.2.686 [id number] [facility] 2023-01-04 08:00:00 2023-01-04 08:00:00 Outpatient R COLBY MOONEY [facility] [id number] [facility] 2023-01-04 00:00:00 2023-01-04 00:00:00 Desiree Davila [facility] BUILD[facility] 1.2.840.114 350.1.13.10 4.2.7.2.686 [id number] 220 [id number] [facility] 2022-12-12 08:30:00 2022-12-12 08:30:00 Outpatient R J[facility]ICA [facility] [id number] [facility] 2022-11-27 09:30:00 2022-11-27 16:54:53 Outpatient R [facility]ICA [facility] [id number] [facility] 2022-11-27 09:30:00 2022-11-27 16:54:53 Nurse Visit Visit, Adc Nurse [facility] BUILDING 1.2.840.114 350.1.13.10 4.2.7.2.686 [id number] [facility] 2022-11-23 10:00:00 2022-11-23 10:42:10 Outpatient R [facility] [id number] [facility] 2022-11-23 10:00:00 2022-11-23 10:20:00 Office Visit [facility]ica [facility] BUILDING 1.2.840.114 350.1.13.10 4.2.7.2.686 [id number] [facility] 2022-11-22 00:00:00 2022-11-22 00:00:00 Telephone Molly Brown [facility] BUILDING 1.2.840.114 350.1.13.10 4.2.7.2.686 [id number] [id number] [facility] 2022-11-17 11:40:00 2022-11-17 12:00:00 Urgent Care Yehuda Britton Unknown, Attending [facility] 1.840.114 350.1.13.10 4.2.7.2.686 [id number] 370 [id number] [facility] 2022-11-17 11:40:00 2022-11-17 11:40:00 Outpatient R YEHUDA BRITTON [facility] [id number] [facility] 2022-11-03 00:00:00 2022-11-03 00:00:00 Telephone [facility]. [facility] 1.840.114 350..13.10 4.2.7.2.686 [id number] [facility] 2022-10-31 15:44:49 2022-10-31 23:59:00 Outpatient R MOLLY BROWN [facility] [id number] [facility] 2022-10-27 11:00:00 2022-10-27 12:46:08 Outpatient R OSCAR ARIZMENDI [facility] [id number] [facility] 2022-10-27 11:00:00 2022-10-27 12:46:08 Office Visit Oscar Arizmendi [facility] BUILDING 1.840.114 350.1.13.10 4.2.7.2.686 [id number] [facility] 2022-10-24 00:00:00 2022-10-24 00:00:00 Orders Only Doctor Unassigned, [place] [facility] 1.840.114 350.1.13.10 4.2.7.2.686 [id number] [facility] 2022-10-18 00:00:00 2022-10-18 00:00:00 Telephone Oscar Arizmendi [facility] 1.2.840.114 350.1.13.10 4.2.7.2.686 [id number] [facility] 2022-10-06 09:36:23 2022-10-06 23:59:00 Outpatient R RADIOLOGY [facility] [id number] [facility] 2022-10-06 09:36:23 2022-10-06 23:59:00 Hospital Encounter Radiology [facility] 1..840.114 350.1.13.10 4.2.7.2.686 [id number] [facility] 2022-10-06 00:00:00 2022-10-06 00:00:00 Orders Only Doctor Unassigned, [place] [facility] 1..840.114 350.1.13.10 4.2.7.2.686 [id number] [facility] 2022-10-03 09:30:00 2022-10-03 10:02:07 Outpatient R MOLLY BROWN [facility] [id number] [facility] 2022-10-03 09:30:00 2022-10-03 10:02:07 Office Visit Molly Brown [facility] PROFESSIO NAL BUILDING 1..840.114 350.1.13.10 4.2.7.2.686 [id number] [facility] 2022-09-29 09:30:00 2022-09-29 09:30:00 Outpatient R OSCAR ARIZMENDI [facility] [id number] [facility] 2022-09-19 09:30:00 2022-09-19 09:52:10 Outpatient R SIXTO PAYNE [facility] [id number] [facility] 2022-09-19 09:30:00 2022-09-19 09:45:00 Laboratory Only Only, Ang Db Test Unknown, Attending Sixto Payne [facility] BU[facility] 1..840.114 350.1.13.10 4.2.7.2.686 [id number] 370 [id number] [facility] 2022-09-19 00:00:00 2022-09-19 00:00:00 Letter (Out) Florence Lopez [facility] 1.840.114 350.1.13.10 4.2.7.2.686 [id number] [facility] 2022-09-13 08:30:00 2022-09-13 08:30:00 Outpatient DWIGHT SEVERINO [facility] [id number] [facility] 2022-09-05 00:00:00 2022-09-05 00:00:00 Outpatient R RADIOLOGY [facility] [id number] [facility] 2022-09-03 10:20:00 2022-09-03 11:17:43 Outpatient R LAURA SMITH [facility] [id number] [facility] 2022-09-03 10:20:00 2022-09-03 11:17:43 Urgent Care Laura Smith Unknown, Attending [facility] 1.84.114 350.1.13.10 4.2.7.2.686 [id number] 370 [id number] [facility] 2022-08-16 14:58:38 2022-08-16 23:59:00 Outpatient R RADIOLOGY [facility] [id number] [facility] 2022-08-16 14:58:38 2022-08-16 23:59:00 Hospital Encounter Radiology [facility] 1.84.114 350.1.13.10 4.2.7.2.686 [id number] [facility] 2022-08-16 00:00:00 2022-08-16 00:00:00 Patient Secure g Desiree Ybarra [facility] BUILD[facility] 1.840.114 350.1.13.10 4.2.7.2.686 [id number] 220 [id number] [facility] 2022-08-10 00:00:00 2022-08-10 00:00:00 Refill Lorie Urena [facility] 1.0.114 350.1.13.10 4.2.7.2.686 [id number] [facility] 2022-08-02 10:33:59 2022-08-02 23:59:00 Outpatient R [facility] [id number] [facility] 2022-08-02 10:33:59 2022-08-02 23:59:00 [facility] 1.0.114 350.1.13.10 4.2.7.2.686 [id number] [facility] 2022-07-28 10:00:00 2022-07-28 10:00:00 Outpatient Yang [facility]ONEY [facility] [id number] [facility] 2022-07-21 00:00:00 2022-07-21 00:00:00 Patient Secure Msg Mooney [facility] MEDICAL OFFICE BUILDING 1.0.114 350.1.13.10 4.2.7.2.686 [id number] [facility] 2022-07-19 00:00:00 2022-07-19 00:00:00 Refill Jesica [facility] PROFESSIO NAL BUILDING 1.2840.114 350.1.13.10 4.2.7.2.686 [id number] [facility] 2022-07-15 00:00:00 2022-07-15 00:00:00 Patient Secure Msg Ybarra [facility] 1.2840.114 350.1.13.10 4.2.7.2.686 [id number] 220 [id number] [facility] 2022-07-14 00:00:00 2022-07-14 00:00:00 RefOscar Rivero Rebecca [facility] MEDICAL OFF[facility] BUILDING 1.0.114 350.1.13.10 4.2.7.2.686 [id number] 220 [id number] [facility] 2022-06-05 00:00:00 2022-06-05 00:00:00 Telephone [facility] Critical access hospital [place]?[facility] BUILDING 1.0.114 350.1.13.10 4.2.7.2.686 [id number] 220 [id number] [facility] 2022-05-26 00:00:00 2022-05-26 00:00:00 Telephone [facility] Critical access hospital [place]?[facility] OFF[facility] BUILDING 1.2840.114 350.1.13.10 4.2.7.2.686 [id number] 220 [id number] [facility] 2022-05-25 00:00:00 2022-05-25 00:00:00 Refill [facility] Critical access hospital [place] BUILD[facility] 1.0.114 350.1.13.10 4.2.7.2.686 [id number] [facility] 2022-05-19 00:00:00 2022-05-19 00:00:00 Telephone [facility] Critical access hospital [place]?[facility] BUILD[facility] 1.0.114 350.1.13.10 4.2.7.2.686 [id number] 220 [id number] [facility] 2022-04-14 00:00:00 2022-04-14 00:00:00 Orders Only Doctor Unassigned, [place] [facility] 1.20.114 350.1.13.10 4.2.7.2.686 [id number] [facility] 2022-04-07 11:00:00 2022-04-07 12:08:29 [facility] [id number] 2022-04-07 11:00:00 2022-04-07 12:08:29 Office Visit Amada [facility] OFF[facility] BUILDING 1.84.114 350.1.13.10 4.2.7.2.686 [id number] [facility] 2022-04-07 11:00:00 2022-04-07 12:08:29 Outpatient [facility] [id number] [facility] 2022-04-07 11:00:00 2022-04-07 11:00:00 Outpatient [facility] [id number] [facility] 2022-04-03 14:00:00 2022-04-03 14:46:34 Outpatient R MOLLY BROWN [facility] [id number] [facility] 2022-04-03 14:00:00 2022-04-03 14:46:34 Office Visit Molly Brown [facility] NAL BUILDING 1.840.114 350.1.13.10 4.2.7.2.686 [id number] [facility] 2022-04-03 00:00:00 2022-04-03 00:00:00 Orders Only Doctor Unassigned, [place] [facility] 1.2114 350.1.13.10 4.2.7.2.686 [id number] [facility] 2022-03-28 00:00:00 2022-03-28 00:00:00 Patient Secure Msg Chris [facility] OFF[facility] BUILDING 1.2.840.114 350.1.13.10 4.2.7.2.686 [id number] 220 [id number] [facility] 2022-03-24 00:00:00 2022-03-24 00:00:00 [facility] 1.2840.114 350.1.13.10 4.2.7.2.686 [id number] 220 [id number] [facility] 2022-03-21 00:00:00 2022-03-21 00:00:00 Orders Only Doctor Unassigned, [place] [facility] 1.2.840.114 350.1.13.10 4.2.7.2.686 [id number] [facility] 2022-03-20 00:00:00 2022-03-20 00:00:00 Telephone Chris [facility] OFF[facility] BUILDING 1.2.840.114 350.1.13.10 4.2.7.2.686 [id number] 220 [id number] [facility] 2022-03-15 08:30:00 2022-03-15 08:56:18 Office Visit Dwight Severino [facility] 1 1.2.840.114 350.1.13.58 9.2.7.2.686 [id number] [facility] 2022-03-10 08:30:00 2022-03-10 09:05:42 Office Visit Dwight Severino [facility] 1 1.2.840.114 350.1.13.58 9.2.7.2.686 [id number] [facility] 2022-03-01 08:30:00 2022-03-01 09:28:36 Office Visit Dwight Severino [facility] 1 1.2.840.114 350.1.13.58 9.2.7.2.686 [id number] [facility] 2022-02-10 08:45:00 2022-02-10 09:43:38 Office Visit Dwight Severino [facility] 1 1.20.114 350.1.13.58 9.2.7.2.686 [id number] [facility] 2022-01-18 10:00:00 2022-01-18 10:20:00 [facility] 1.20.114 350.1.13.10 4.2.7.2.686 [id number] [facility] 2022-01-18 10:00:00 2022-01-18 10:00:00 Outpatient R [facility] [id number] [facility] 2022-01-18 10:00:00 2022-01-18 10:00:00 Outpatient Yang [facility] [id number] [facility] 2022-01-04 08:30:00 2022-01-04 09:58:53 Office Visit Dwight Severino [facility] 1 1.20.114 350.1.13.58 9.2.7.2.686 [id number] [facility] 2021-12-08 00:00:00 2021-12-08 00:00:00 [facility] LYSSAALIS[facility] MED[facility] OFFICE BUILDING 1.2840.114 350.1.13.10 4.2.7.2.686 [id number] 220 [id number] [facility] 2021-12-02 13:30:00 2021-12-02 13:30:00 Outpatient Yang DESIREE YBARRA [facility] [id number] [facility] 2021-11-10 00:00:00 2021-11-10 00:00:00 Orders Only Doctor Unassigned, [place] [facility] 1.2840.114 350.1.13.10 4.2.7.2.686 [id number] [facility] 2021-11-09 00:00:00 2021-11-09 00:00:00 Telephone Eva Perez [facility] 1..114 350.1.13.10 4.2.7.2.686 [id number] [facility] 2021-11-06 21:00:00 2021-11-06 23:14:00 [facility] [id number] [facility] 2021-11-06 21:00:00 2021-11-06 23:14:00 Emergency Vi Perezanne [facility] 1.84.114 350.1.13.10 4.2.7.2.686 [id number] [facility] 2021-11-04 17:08:00 2021-11-05 14:00:00 Hospital Encounter Colby Mooney, Jennifer Obregon Provider, Clc Ep Lab Anesthesia, Clc Ep Lab [facility] ([facility]) 1..114 350.1.13.10 4.2.7.2.686 [id number] [facility] 2021-11-04 10:58:15 2021-11-05 14:00:00 Outpatient JENNIFER HELM [facility] [id number] [facility] 2021-11-04 10:58:15 2021-11-05 14:00:00 Outpatient JENNIFER HELM [facility] CARLYN [id number] [facility] 2021-11-03 09:15:00 2021-11-03 09:20:00 Pre-Anesth esia Evaluation Call, Clc Apac Phone [facility] ([facility] 1.20.114 350.1.13.10 4.2.7.2.686 [id number] [facility] 2021-10-31 15:56:29 2021-10-31 16:11:29 Laboratory Only Only, Adc Test Alycia Stevenson [facility] 1.20.114 350.1.13.10 4.2.7.2.686 [id number] [facility] 2021-10-31 15:52:51 2021-10-31 16:07:51 Grain Manager Visit Pob, Adc Lab Main [place] [facility] 1.20.114 350.1.13.10 4.2.7.2.686 [id number] [facility] 2021-10-31 16:00:00 2021-10-31 16:00:00 Outpatient ALYCIA MARES [facility] [id number] [facility] 2021-10-31 15:45:00 2021-10-31 15:45:00 Outpatient Yang [facility] [id number] [facility] 2021-10-31 00:00:00 2021-10-31 00:00:00 Telephone [place] [facility] 1.2.114 350.1.13.10 4.2.7.2.686 [id number] [facility] 2021-10-31 00:00:00 2021-10-31 00:00:00 Orders Only Doctor Unassigned, [place] [facility] 1.20.114 350.1.13.10 4.2.7.2.686 [id number] [facility] 2021-10-26 00:00:00 2021-10-26 00:00:00 Telephone [place] [facility] 1.2.840.114 350.1.13.10 4.2.7.2.686 [id number] [facility] 2021-10-19 00:00:00 2021-10-19 00:00:00 Patient Secure Msg [place] [facility] MEDICAL OFFICE BUILDING 1.2.840.114 350.1.13.10 4.2.7.2.686 [id number] [facility] 2021-10-10 00:00:00 2021-10-10 00:00:00 Telephone [place] [facility] 1.2.840.114 350.1.13.10 4.2.7.2.686 [id number] [facility] 2021-10-04 09:25:57 2021-10-04 10:24:57 Office Visit Jesica [facility] 1.2.840.114 350.1.13.10 4.2.7.2.686 [id number] 059 [id number] [facility] 2021-10-04 09:20:00 2021-10-04 10:24:57 Outpatient R BRUNOCOLBY BRADEN [facility] [id number] [facility] 2021-10-04 10:00:00 2021-10-04 10:24:46 Outpatient R MOLLY BROWN [facility] [id number] [facility] 2021-10-04 10:00:00 2021-10-04 10:24:46 Outpatient R MOLLY BROWN [facility] [id number] [facility] 2021-10-04 09:54:34 2021-10-04 10:24:46 Office Visit Molly Brown [facility] 1.2.840.114 350.1.13.10 4.2.7.2.686 [id number] [facility] 2021-10-04 10:00:00 2021-10-04 10:00:00 Outpatient R BROWNMOLLY [facility] [id number] [facility] 2021-10-04 09:25:57 2021-10-04 09:45:57 Office Visit Colby Mooney [facility] BUILDING 1.2.840.114 350.1.13.10 4.2.7.2.686 [id number] [facility] 2021-10-04 09:20:00 2021-10-04 09:20:00 Outpatient R [facility]ICA [facility] [id number] [facility] 2021-09-30 00:00:00 2021-09-30 00:00:00 Patient Secure Msg Chris [facility] 1.2.840.114 350.1.13.10 4.2.7.2.686 [id number] 220 [id number] [facility] 2021-09-29 00:00:00 2021-09-29 00:00:00 Telephone Chris [facility] 1.2.840.114 350.1.13.10 4.2.7.2.686 [id number] 220 [id number] [facility] 2021-09-15 00:00:00 2021-09-15 00:00:00 Patient Secure Msg Jesica [facility] MEDICAL OFFICE BUILDING 1.2.840.114 350.1.13.10 4.2.7.2.686 [id number] 059 [id number] [facility] 2021-09-09 06:45:00 2021-09-09 23:59:00 Hospital Encounter Molly Brown Haider Salam [facility] 1.2840.114 350.1.13.10 4.2.7.2.686 [id number] [facility] 2021-09-09 07:00:00 2021-09-09 07:00:00 Outpatient R MOLLY BROWN [facility] [id number] [facility] 2021-09-07 23:50:00 2021-09-08 03:01:00 Emergency Narciso Nickerson S [facility] 1.2840.114 350.1.13.10 4.2.7.2.686 [id number] 084 [id number] [facility] 2021-09-07 23:50:00 2021-09-08 03:01:00 Emergency [facility] [id number] [facility] 2021-09-06 09:35:07 2021-09-06 09:50:07 Laboratory Only Only, Ang Db [facility]licia alissa Medical Office Building 1.2.840.114 350.1.13.10 4.2.7.2.686 [id number] [facility] 2021-09-06 09:45:00 2021-09-06 09:45:00 [facility] [id number] [facility] 2021-09-06 07:30:00 2021-09-06 07:30:00 Outpatient R [facility] [id number] [facility] 2021-09-06 00:00:00 2021-09-06 00:00:00 Telephone Molly Brown [facility] 1.2.840.114 350.1.13.10 4.2.7.2.686 [id number] [facility] 2021-09-06 00:00:00 2021-09-06 00:00:00 Refill [facility] 1.2.114 350.1.13.10 4.2.7.2.686 [id number] [facility] 2021-09-06 00:00:00 2021-09-06 00:00:00 Telephone Adeola Blum [facility] 1.2114 350.1.13.10 4.2.7.2.686 [id number] 019 [id number] [facility] 2021-09-05 09:43:24 2021-09-05 10:45:54 [facility] 1.84.114 350.1.13.10 4.2.7.2.686 [id number] 220 [id number] [facility] 2021-09-05 09:30:00 2021-09-05 09:30:00 Outpatient R OSCAR ARIZMENDI [facility] [id number] [facility] 2021-09-02 00:00:00 2021-09-02 00:00:[address] [facility] 1.840.114 350.1.13.10 4.2.7.2.686 [id number] 220 [id number] [facility] 2021-08-23 10:05:19 2021-08-23 10:41:03 Office Visit Molly Brown [facility] nal Building 1.84.114 350.1.13.10 4.2.7.2.686 [id number] 059 [id number] [facility] 2021-08-23 10:00:00 2021-08-23 10:00:00 Outpatient R MOLLY BROWN [facility] [id number] [facility] 2021-08-16 11:20:00 2021-08-16 11:20:00 Outpatient [facility] [id number] [facility] 2021-08-08 08:30:00 2021-08-08 23:59:00 Hospital Encounter Jes[facility] 1.2.840.114 350.1.13.10 4.2.7.2.686 [id number] [facility] 2021-08-08 08:30:00 2021-08-08 08:30:00 Outpatient ANA [facility] [id number] [facility] 2021-08-08 00:00:00 2021-08-08 00:00:00 Telephone Molly Brown [facility] 1.2840.114 350.1.13.10 4.2.7.2.686 [id number] [facility] 2021-08-04 00:00:00 2021-08-04 00:00:00 Telephone Molly Brown [facility] 1.2.840.114 350.1.13.10 4.2.7.2.686 [id number] 059 [id number] [facility] 2021-07-26 00:00:00 2021-07-26 00:00:00 Telephone Molly Brown [facility] 1.2.840.114 350.1.13.10 4.2.7.2.686 [id number] [facility] 2021-07-21 08:14:58 2021-07-21 23:59:00 Hospital Encounter Molly Brown [facility] 1.2.840.114 350.1.13.10 4.2.7.2.686 [id number] [facility] 2021-07-21 08:14:18 2021-07-21 23:59:00 Hospital Encounter Molly Brown [facility] 1.2.840.114 350.1.13.10 4.2.7.2.686 [id number] [facility] 2021-07-21 08:13:58 2021-07-21 08:13:58 Hospital Encounter Molly Brown [facility] 1.2.840.114 350.1.13.10 4.2.7.2.686 [id number] [facility] 2021-07-21 08:13:31 2021-07-21 08:13:31 Hospital Encounter Molly Brown [facility] 1.2.840.114 350.1.13.10 4.2.7.2.686 [id number] [facility] 2021-07-21 08:12:55 2021-07-21 08:12:55 Hospital Encounter Molly Brown [facility] 1.2.840.114 350.1.13.10 4.2.7.2.686 [id number] [facility] 2021-07-21 00:00:00 2021-07-21 00:00:00 Outpatient MOLLY BROWN [facility] [id number] [facility] 2021-07-18 15:40:56 2021-07-18 15:55:56 Laboratory Only Only, Adc Test Molly Brown [facility] 1.2.840.114 350.1.13.10 4.2.7.2.686 [id number] [facility] 2021-07-18 15:30:00 2021-07-18 15:30:00 Outpatient R MOLLY BROWN [facility] [id number] [facility] 2021-07-15 12:30:26 2021-07-15 23:59:00 Hospital Encounter DaryReneeo Froylan [facility] 1.2840.114 350.1.13.10 4.2.7.2.686 [id number] [facility] 2021-07-15 12:10:33 2021-07-15 12:25:33 Grain Manager Visit Pcp-Lab DaryAbdirashid [facility] 1.2.840.114 350.1.13.10 4.2.7.2.686 [id number] [facility] 2021-07-15 11:19:51 2021-07-15 12:10:48 Office Visit Jovnay Foote [facility] 1.2.840.114 350.1.13.10 4.2.7.2.686 [id number] [facility] 2021-07-15 11:00:00 2021-07-15 11:00:00 Outpatient R DARY ABDIRASHID [facility] [id number] [facility] 2021-07-12 13:05:55 2021-07-12 13:25:55 Office [facility] 1.2.840.114 350.1.13.10 4.2.7.2.686 [id number] 059 [id number] [facility] 2021-07-12 13:00:00 2021-07-12 13:00:00 Outpatient R COLBY MOONEY [facility] [id number] [facility] 2021-07-08 11:00:00 2021-07-08 11:00:00 Outpatient R [facility] [id number] [facility] 2021-06-30 15:08:14 2021-06-30 23:59:00 Hospital Encounter Radiology [facility] 1.2.840.114 350.1.13.10 4.2.7.2.686 [id number] [facility] 2021-06-30 15:00:00 2021-06-30 15:07:00 Hospital Encounter Radiology [facility] 1.2840.114 350.1.13.10 4.2.7.2.686 [id number] [facility] 2021-06-30 00:00:00 2021-06-30 00:00:00 Outpatient R RADIOLOGY [facility] [id number] [facility] 2021-06-27 13:59:42 2021-06-27 15:18:27 Office Visit Molly Brown [facility] Building 1.840.114 350.1.13.10 4.2.7.2.686 [id number] 059 [id number] [facility] 2021-06-27 14:00:00 2021-06-27 14:00:00 Outpatient R MOLLY BROWN [facility] [id number] [facility] 2021-06-27 00:00:00 2021-06-27 00:00:00 Orders Only Doctor Unassigned, [place] [facility] 1.840.114 350.1.13.10 4.2.7.2.686 [id number] [id number] [facility] 2021-06-24 11:24:42 2021-06-24 11:44:42 Laboratory Only Lab, Adc Fam Pob I Kerry [facility] Office Building One 1..114 350.1.13.10 4.2.7.2.686 [id number] 044 [id number] [facility] 2021-06-24 11:20:00 2021-06-24 11:20:00 Outpatient R SIXTO PAYNE [facility] [id number] [facility] 2021-06-10 00:00:00 2021-06-10 00:00:00 [facility] 1.2.840.114 350.1.13.10 4.2.7.2.686 [id number] 059 [id number] [facility] 2021-06-07 00:00:00 2021-06-07 00:00:00 Orders Only Doctor Unassigned, [place] [facility] 1.2.840.114 350.1.13.10 4.2.7.2.686 [id number] [id number] [facility] 2021-06-07 00:00:00 2021-06-07 00:00:00 Patient [facility] 1.2.840.114 350.1.13.10 4.2.7.2.686 [id number] 059 [id number] [facility] 2021-06-07 00:00:00 2021-06-07 00:00:00 Patient Secure [facility] 1.2.840.114 350.1.13.10 4.2.7.2.686 [id number] 059 [id number] [facility] 2021-06-06 18:46:11 2021-06-06 23:59:00 Hospital Encounter Radiology [facility] 1.2.840.114 350.1.13.10 4.2.7.2.686 [id number] [facility] 2021-06-06 18:46:11 2021-06-06 23:59:00 Outpatient R RADIOLOGY [facility] [id number] [facility] 2021-06-06 00:00:00 2021-06-06 00:00:00 Outpatient R RADIOLOGY [facility] [id number] [facility] 2021-06-06 00:00:00 2021-06-06 00:00:00 Telephone Violetta Gomes [facility] 1.2.840.114 350.1.13.10 4.2.7.2.686 [id number] 059 [id number] [facility] 2021-06-01 00:00:00 2021-06-01 00:00:00 Orders Only Doctor Unassigned, [place] [facility] 1.2.840.114 350.1.13.10 4.2.7.2.686 [id number] [id number] [facility] 2021-05-26 00:00:00 2021-05-26 00:00:00 Telephone Violetta Gomes [facility] 1.2.840.114 350.1.13.10 4.2.7.2.686 [id number] 059 [id number] [facility] 2021-05-25 00:00:00 2021-05-25 00:00:00 Patient [facility] 1.2.840.114 350.1.13.10 4.2.7.2.686 [id number] 059 [id number] [facility] 2021-05-25 00:00:00 2021-05-25 00:00:00 Patient Secure Msg Eva Perez [facility] 1.2.840.114 350.1.13.10 4.2.7.2.686 [id number] 220 [id number] [facility] 2021-05-16 15:01:55 2021-05-16 16:17:59 Office Visit Eva Perez [facility] 1.2.840.114 350.1.13.10 4.2.7.2.686 [id number] [facility] 2021-05-16 15:00:00 2021-05-16 15:00:00 Outpatient R EVA PEREZ [facility] [id number] [facility] 2021-05-13 23:11:00 2021-05-14 14:18:00 Emergency Narciso Nickerson, [facility] 1.2.840.114 350.1.13.10 4.2.7.2.686 [id number] [facility] 2021-05-13 00:00:00 2021-05-13 00:00:00 Patient Secure Msg Eliseo [facility] PROFESSIO NAL BUILDING 1.2.840.114 350.1.13.10 4.2.7.2.686 [id number] 059 [id number] [facility] 2021-05-12 10:00:00 2021-05-12 10:00:00 [facility] [id number] 2021-05-11 08:30:00 2021-05-11 08:30:00 [facility] [id number] [facility] 2021-05-09 15:00:00 2021-05-09 15:00:00 Outpatient R EVA PEREZ [facility] [id number] [facility] 2021-05-06 09:51:57 2021-05-06 23:59:00 Hospital Encounter Radiology [facility] 1.2.840.114 350.1.13.10 4.2.7.2.686 [id number] [facility] 2021-05-06 13:00:00 2021-05-06 13:30:37 [facility] [id number] [facility] 2021-05-06 12:58:16 2021-05-06 13:30:37 Office Visit Eliseo [facility] Professio nal Building 1.2840.114 350.1.13.10 4.2.7.2.686 [id number] [id number] [facility] 2021-05-06 13:00:00 2021-05-06 13:00:00 Outpatient VIOLETTA RAMOS [facility] [id number] [facility] 2021-03-15 00:00:00 2021-03-15 00:00:00 Refill Chris [facility] Building 1.2840.114 350.1.13.10 4.2.7.2.686 [id number] 220 [id number] [facility] 2021-03-01 00:00:00 2021-03-01 00:00:00 Refill Chris [facility] 1..114 350.1.13.10 4.2.7.2.686 [id number] 220 [id number] [facility] 2021-02-23 00:00:00 2021-02-23 00:00:00 Telephone Chris [facility] Building 1.2840.114 350.1.13.10 4.2.7.2.686 [id number] 220 [id number] [facility] 2021-02-23 00:00:00 2021-02-23 00:00:00 Orders Only Doctor Unassigned, [place] [facility] 1.2840.114 350.1.13.10 4.2.7.2.686 [id number] [id number] [facility] 2021-02-17 00:00:00 2021-02-17 00:00:00 Telephone Chris [facility] Building 1.2840.114 350.1.13.10 4.2.7.2.686 [id number] 220 [id number] [facility] 2021-02-07 00:00:00 2021-02-07 00:00:00 Refill [facility] 1.2.840.114 350.1.13.10 4.2.7.2.686 [id number] 220 [id number] [facility] 2021-02-01 00:00:00 2021-02-01 00:00:00 Patient Outreach Burt Quintero [facility] 1.2.840.114 350.1.13.10 4.2.7.2.686 [id number] [facility] 2021-01-18 00:00:00 2021-01-18 00:00:00 Telephone Thomasshar [facility] IALTY [facility] 1.2.840.114 350.1.13.10 4.2.7.2.686 [id number] 220 [id number] [facility] 2021-01-06 00:00:00 2021-01-06 00:00:00 [facility]jaye [facility] 1.2.840.114 350.1.13.10 4.2.7.2.686 [id number] 220 [id number] [facility] 2020-12-09 00:00:00 2020-12-09 00:00:00 Telephone [facility] 1.2.840.114 350.1.13.10 4.2.7.2.686 [id number] 220 [id number] [facility] 2020-12-09 00:00:00 2020-12-09 00:00:00 Orders Only Doctor Unassigned, [place] [facility] 1.2.840.114 350.1.13.10 4.2.7.2.686 [id number] [id number] [facility] 2020-11-23 00:00:00 2020-11-23 00:00:00 Orders Only Doctor Unassigned, [place] [facility] 1.2840.114 350.1.13.10 4.2.7.2.686 [id number] [id number] [facility] 2020-11-18 00:00:00 2020-11-18 00:00:00 Patient Secure Msg [facility] BU[facility] 1.2840.114 350.1.13.10 4.2.7.2.686 [id number] 220 [id number] [facility] 2020-11-17 18:32:43 2020-11-17 23:59:00 Hospital Encounter Chris [facility] 1.2840.114 350.1.13.10 4.2.7.2.686 [id number] [id number] [facility] 2020-11-17 00:00:00 2020-11-17 00:00:00 Outpatient R CHRIS [facility] [id number] [facility] 2020-11-17 00:00:00 2020-11-17 00:00:00 Orders Only Doctor Unassigned, [place] [facility] 1.2840.114 350.1.13.10 4.2.7.2.686 [id number] [id number] [facility] 2020-11-09 00:00:00 2020-11-09 00:00:00 Patient Secure Msg Chris [facility] BUILDING 1.2840.114 350.1.13.10 4.2.7.2.686 [id number] 220 [id number] [facility] 2020-11-08 15:59:06 2020-11-08 16:14:06 Grain Manager Visit 2, Adc Lab Chris [facility] Building 1.2840.114 350.1.13.10 4.2.7.2.686 [id number] [facility] 2020-11-08 15:11:07 2020-11-08 15:55:31 Office Visit Chris [facility] 1.840.114 350.1.13.10 4.2.7.2.686 [id number] 220 [id number] [facility] 2020-11-08 15:00:00 2020-11-08 15:00:00 Outpatient Yang PEREZ [facility] [id number] [facility] 2020-11-05 11:00:02 2020-11-05 11:15:02 Grain Manager Visit Pob, Adc Lab Main Elva [facility] 1..840.114 350.1.13.10 4.2.7.2.686 [id number] [facility] 2020-11-05 11:00:00 2020-11-05 11:00:00 Outpatient Yang [facility] [id number] [facility] 2020-11-05 00:00:00 2020-11-05 00:00:00 [facility] 1.840.114 350.1.13.10 4.2.7.2.686 [id number] 220 [id number] [facility] 2020-11-05 00:00:00 2020-11-05 00:00:00 Orders Only Doctor Unassigned, [place] [facility] 1.840.114 350.1.13.10 4.2.7.2.686 [id number] [facility] 2020-10-08 12:07:00 2020-10-08 20:49:00 Day Surgery nullFlavo r [facility] [id number] Carin jones [place] 2020-10-08 06:07:00 2020-10-08 14:49:00 Outpatient DARYL TAYLOR [id number] 2020-09-10 00:00:00 2020-09-10 00:00:00 Telephone Chris [facility] Building 1..840.114 350.1.13.10 4.2.7.2.686 [id number] 220 [id number] [facility] 2020-09-10 00:00:00 2020-09-10 00:00:00 Telephone Sami [facility] MULTISPEC IALTY [facility] 1..114 350.1.13.10 4.2.7.2.686 [id number] 220 [id number] [facility] 2020-09-10 00:00:00 2020-09-10 00:00:00 Refill Sami [facility] Building 1..840.114 350.1.13.10 4.2.7.2.686 [id number] 220 [id number] [facility] 2020-08-10 00:00:00 2020-08-10 00:00:00 [facility]ill [facility] 1.84.114 350.1.13.10 4.2.7.2.686 [id number] 220 [id number] [facility] 2020-08-09 15:30:00 2020-08-09 15:30:00 Outpatient R CHRIS [facility] [id number] [facility] 2020-08-09 09:18:49 2020-08-09 09:48:49 Telemedici ne Visit Chris [facility] 1..840.114 350.1.13.10 4.2.7.2.686 [id number] 220 [id number] [facility] 2020-06-29 16:00:00 2020-06-29 16:00:00 Outpatient R ALIYAH FUCHS [facility] [id number] [facility] 2020-04-22 08:00:00 2020-04-22 08:00:00 Outpatient R JEF [facility] [id number] [facility] 2020-04-20 00:00:00 2020-04-20 00:00:00 Telephone Jef [facility] MULTISPEC IALTY [facility] 1.0.114 350.1.13.10 4.2.7.2.686 [id number] 220 [id number] [facility] 2020-04-09 09:30:00 2020-04-09 09:30:00 Outpatient R KERAEMILY [facility] [id number] [facility] 2020-04-09 07:55:34 2020-04-09 08:25:34 [facility]medici ne [facility] 1..114 350.1.13.10 4.2.7.2.686 [id number] 220 [id number] [facility] 2020-04-09 00:00:00 2020-04-09 00:00:00 [facility] 1..114 350.1.13.10 4.2.7.2.686 [id number] 220 [id number] [facility] 2020-04-09 00:00:00 2020-04-09 00:00:00 Orders Only Doctor Unassigned, [place] [facility] 1..114 350.1.13.10 4.2.7.2.686 [id number] [id number] [facility] 2020-03-26 00:00:00 2020-03-26 00:00:00 Telephone [facility] 1..114 350.1.13.10 4.2.7.2.686 [id number] 220 [id number] [facility] 2020-03-17 00:00:00 2020-03-17 00:00:00 Telephone Eva Perez [facility] Office Building One 1.2.840.114 350.1.13.10 4.2.7.2.686 [id number] [id number] [facility] 2020-03-02 00:00:00 2020-03-02 00:00:00 Refill Gail Gallardo [facility] Building 1.2.840.114 350.1.13.10 4.2.7.2.686 [id number] 220 [id number] [facility] 2020-01-29 00:00:00 2020-01-29 00:00:00 Orders Only Doctor Unassigned, [place] [facility] 1.2.840.114 350.1.13.10 4.2.7.2.686 [id number] 009 [id number] [facility] 2020-01-28 00:00:00 2020-01-28 00:00:00 Telephone Eva Perez [facility] Building 1.2.840.114 350.1.13.10 4.2.7.2.686 [id number] 220 [id number] [facility] 2020-01-05 16:09:55 2020-01-05 17:05:54 Office Visit Eva Perez [facility] 1.2.840.114 350.1.13.10 4.2.7.2.686 [id number] 220 [id number] [facility] 2020-01-05 00:00:00 2020-01-05 00:00:00 Refill Eva Perez [facility] 1.2.840.114 350.1.13.10 4.2.7.2.686 [id number] 220 [id number] [facility] 2019-12-30 12:58:15 2019-12-30 13:50:28 Research Nurse Practitioner Visit Aliyah Fuchs [facility] 1.2.840.114 350.1.13.10 4.2.7.2.686 [id number] 220 [id number] [facility] 2019-12-30 00:00:00 2019-12-30 00:00:00 Orders Only Doctor Unassigned, [place] 1.2.840.114 350.1.13.10 4.2.7.2.686 [id number] [facility] 2019-12-05 00:00:00 2019-12-05 00:00:00 Refill Gail Gallardo [facility] 1.2.840.114 350.1.13.10 4.2.7.2.686 [id number] 220 [id number] [facility] 2019-12-05 00:00:00 2019-12-05 00:00:00 Refill [facility] 1.2.840.114 350.1.13.10 4.2.7.2.686 [id number] 220 [id number] [facility] 2019-08-04 00:00:00 2019-08-04 00:00:00 Refill Sami [facility] 1.2.840.114 350.1.13.10 4.2.7.2.686 [id number] 220 [id number] [facility] 2019-07-30 00:00:00 2019-07-30 00:00:00 Refill [facility] 1.2.840.114 350.1.13.10 [id number] 220 [id number] [facility] 2019-06-30 00:00:00 2019-06-30 00:00:00 Telephone Oscar Arizmendi [facility] [id number] [facility] 2019-06-18 11:15:14 2019-06-18 12:18:57 Office Visit Gail Gallardo [facility] [id number] [facility] 2019-06-17 00:00:00 2019-06-17 00:00:00 Oscar Lockett [facility] [id number] [facility] Results Test Description Test Time Test Comments Results Result Co mments Source [facility] SARS-COV-2 ANTIGEN (BINAX NOW)2023-10-07 02:05:00* Test Item Value Reference Range Interpretation Comme nts POCT SARS-COV-2 ANTIGEN (esmer t code = 80052-5) Not Detected Not Detected On board controls acceptable with C Line (test code = 3574) Yes Lab Interpretation (test cod e = 90907-6) Normal [facility] MOLECULAR [id number] 01:58:33* Test Item Value Reference Range Interpretation Comme nts POCT Molecular Strep (test c ode = 91931-3) Negative Negative Lab Interpretation (test cod e = 04113-9) Normal [facility] URINALYSIS W SPECIFIC [id number] 01:46:00* Test Item Value Reference Range Interpretation Comme nts POCT U SP GRAV (test code = 3255) 1.015 mg/dl 1.005-1.025 POCT PH U (test code = 3254) 5 mg/dl 5-8 POCT U LEUK EST (test code = 3263) negative Negative - Negative POCT U NIT (test code = 3262) negative Negative - Negative POCT U PROT (test code = 3259) negative Negative - Negative POCT U GLU (test code = 3256) negative Negative - Negative POCT U KETONE (test code = 3258) negative Negative - Negative POCT U UROBILI (test code = 3260) normal 0.2-1 POCT U BILI (test code = 3261) negative Negative - Negative POCT U BLD (test code = 3257) negative Negative - Negative POCT U COLOR (test code = 3266) yellow POCT U APPEAR (test code = 3267) clear ANNIE (test code = ANNIE) accurate developme nt and interpretation of all internal controls Lab Interpretation (test code = 37799-7) [facility] [id number] 09:00:00* Test Item Value Reference Range Interpretation Comme nts TSH, 3RD GENERATION-Q (test code = 3016-3) 0.75 mIU/L ?Referen ce Range ?> or = 20 Years ?0.40-4.50 ? Ranges ?First trimester ? ?0.26-2.66 ?Second trimester ? 0.55-2.73 ?Third trimester ? ?0.43-2.91 ANNIE (test code = ANNIE) PERFORMED BY [employer] [place]; [address] [place] [address]; MAGNUS HADDAD MD,PHD. [facility] CampusVITAMIN D, 25-HYDROXY,$LC/MS/[id number] 09:00:00* Test Item Value Reference Range Interpretation Comme nts VITAMIN D, 25-OH, TOTAL-Q (test code = 1989-3) 52 ng/mL 30-100 Vitamin D Status ? 25-OH Vitamin D: Deficiency: ?<20 ng/mLInsufficiency: ? 20 - 29 ng/mLOptimal: ? > or = 30 ng/mL For 25-OH Vitamin D testing on patients on D2-supplementation and patients for whom quantitation of D2 and D3 fractions is required, the QuestAssureD(TM)25-O H VIT D, (D2,D3), LC/MS/MS is recommended: order code 78952 (patients >2yrs). See Note 1 Note 1 For additional information, please refer to http://education.[employer].com/fa q/QMP319 (This link is being provided for informational/educat ional purposes only.) REPORT COMMENT:VERIFY PT SEX ANNIE (test code = ANNIE) PERFORMED BY [employer] [place]; [address] [place] [address]; MAGNUS HADDAD MD,PHD. [facility] MOLECULAR [id number] 14:19:32* Test Item Value Reference Range Interpretation Comme nts POCT Molecular Strep (test c ode = 04773-1) Negative Negative Lab Interpretation (test cod e = 29719-0) Normal [facility] HEMOGLOBIN A1C [id number] 21:30:00* Test Item Value Reference Range Interpretation Comme nts POCT HBA1C (test code = 4548-4) 14.0 % 4-6 A Lab Interpretation (test cod e = 93145-5) Abnormal [facility] HEMOGLOBIN A1C [id number] 21:30:00* Test Item Value Reference Range Interpretation Comme nts POCT HBA1C (test code = 4548-4) 14.0 % 4-6 A Lab Interpretation (test cod e = 15917-0) Abnormal [facility] URINALYSIS W SPECIFIC [id number] 15:55:00* Test Item Value Reference Range Interpretation Comme nts POCT U SP GRAV (test code = 3255) 1.015 mg/dl 1.005-1.025 POCT PH U (test code = 3254) 7 mg/dl 5-8 POCT U LEUK EST (test code = 3263) Positive + Negative - Negative POCT U NIT (test code = 3262) Negative Negative - Negative POCT U PROT (test code = 3259) Negative Negative - Negative POCT U GLU (test code = 3256) Normal Negative - Negative POCT U KETONE (test code = 3258) Negative Negative - Negative POCT U UROBILI (test code = 3260) Normal 0.2-1 POCT U BILI (test code = 3261) Negative Negative - Negative POCT U BLD (test code = 3257) About 250 Fercho/uL Negative - Negative POCT U COLOR (test code = 3266) yellow POCT U APPEAR (test code = 3267) cloudy Lab Interpretation (test code = 72321-2) Abnormal [facility] SARS-COV-2 ANTIGEN (BINAX NOW)2022-11-17 18:02:00* Test Item Value Reference Range Interpretation Comme [facility] POCT SARS-COV-2 ANTIGEN (esmer t code = 05049-0) Positive Not Detected A On board controls acceptable with C Line (test code = 3574) Yes Lab Interpretation (test cod e = 67676-9) Abnormal [facility] HEMOGLOBIN A1C [id number] 17:10:00* Test Item Value Reference Range Interpretation Comme [facility] POCT HBA1C (test code = 4548-4) 7.4 % 4-6 A Lab Interpretation (test cod e = 20914-6) Abnormal [facility] HEMOGLOBIN A1C [id number] 17:10:00* Test Item Value Reference Range Interpretation Comme [facility] POCT HBA1C (test code = 4548-4) 7.4 % 4-6 A Lab Interpretation (test cod e = 71116-0) Abnormal [facility] MOLECULAR [id number] 16:17:18* Test Item Value Reference Range Interpretation Comme [facility] POCT Molecular FluA (test co de = 85217-2) Negative Negative POCT Molecular FluB (test co de = 23418-9) Negative Negative Lab Interpretation (test cod e = 56920-0) Normal [facility] SARS-COV-2 ANTIGEN (BINAX NOW)2022-09-03 16:13:00* Test Item Value Reference Range Interpretation Comme [facility] POCT SARS-COV-2 ANTIGEN (test code = 25743-3) Not Detected Not Detected On board controls acceptable with C Line (test code = 3574) Yes ANNIE (test code = ANNIE) accurate developme nt and interpretation of all internal controls Lab Interpretation (test code = 83495-5) Normal [facility] CampusCHEM [id number] 22:14:00* Test Item Value Reference Range Interpretation Comme nts Glucose Lvl (test code = Glucose Lvl) 93 70-99 BUN (test code = BUN) 11 7-22 Creatinine Lvl (test code = Creatinine Lvl) 0.69 0.50-1.40 Sodium Lvl (test code = Sodium Lvl) 137 135-145 Potassium Lvl (test code = P otassium Lvl) 4.1 3.5-5.1 Chloride Lvl (test code = Chloride Lvl) 107 95-109 CO2 (test code = CO2) 28 24-32 Calcium Lvl (test code = Calcium Lvl) 9.0 8.5-10.5 AGAP (test code = AGAP) 6.1 10.0-20.0 eGFR (test code = eGFR) [id number] 22:14:00* Test Item Value Reference Range Interpretation Comme nts WBC (test code = WBC) 5.9 3.7-10.4 RBC (test code = RBC) 4.65 4.20-5.40 Hgb (test code = Hgb) 12.5 12.0-16.0 Hct (test code = Hct) 37.9 36.0-48.0 MCV (test code = MCV) 81.4 80.0-98.0 MCH (test code = MCH) 26.8 pg 27.0-31.0 MCHC (test code = MCHC) 32.9 32.0-36.0 RDW (test code = RDW) 15.6 11.5-14.5 Platelet (test code = Platelet) 248 133-450 MPV (test code = MPV) 8.7 7.4-10.4 Segs (test code = Segs) 54.9 45.0-75.0 Lymphocytes (test code = Lymphocytes) 36.9 20.0-40.0 Monocytes (test code = Monocytes) 7.1 2.0-12.0 Eosinophils (test code = Eosinophils) 0.8 <=4.0 Basophils (test code = Basophils) 0.3 <=1.0 Neutrophils # (test code = Neutrophils #) 3.3 1.5-8.1 Lymphocytes # (test code = Lymphocytes #) 2.2 1.0-5.5 Monocytes # (test code = Monocytes #) 0.4 <=0.8 [id number] 22:14:00* Test Item Value Reference Range Interpretation Comme nts Coronavirus (COVID-19) RICKY (test code = Coronavirus (COVID-19) RICKY) Not Detected *NA*(10/05/20 4:14 PM) [facility] [id number] 22:14:00* Test Item Value Reference Range Interpretation Comme nts Hgb A1C (test code = Hgb A1C) 7.0 [facility] Notes Date/Time Note Provider Source 2025-03-16 08:04:46 Chief Complaint Patient presents with Knee Pain Bilateral. Right Is worse. Pt stated for the past few months she has been having pain and she has arthritis. No injury. Raya Dong MA Raya Dong MA [facility] 2024-11-13 16:49:56 Refill requested for Flecainide. Patient is no longer under the care of Dr. Brown. Medication management deferred to new nutritional assistant Nicole Grayson at [facility]. /BAKERY ASSOCIATE Christiana Feng RN [facility] 2024-10-09 11:36:41 Refill requested for Requested Prescriptions Pending Prescriptions Disp Refills ROSUVASTATIN 20 mg tablet [Pharmacy Med Name: Rosuvastatin Calcium 20 MG Oral Tablet] 90 tablet 0 Sig: TAKE 1 TABLET BY MOUTH IN THE MORNING Patient is now seeing new nutritional assistant "Willie Rivera MD, [facility] Cardiovascular Medicine [address], [facility]" /BAKERY ASSOCIATE Jammie Pruitt RN [facility] 2024-04-22 10:02:00 Chief Complaint Patient presents with Diabetes Cecilia Ramsey MA II Cecilia Ramsey MA, II [facility] 2024-03-31 15:24:01 Chief Complaint Patient presents with Well Woman Exam Sandy Haleyus [facility] 2024-01-21 09:53:33 Cardiac Clearance/ Clinical Notes faxed back to Dr Pedro's office and scanned into chart along with fax confirmation. [facility] Katelyn Lund MA [facility] 2024-01-19 16:39:47 Last office note updated. Please fax. [facility] 2024-01-17 13:26:04 Cardiac Clearance Request received via fax from Dr Pedro ([facility]) and placed in Dr Brown's folder to be reviewed. Last O/V - 09/28/2023 Last EKG - 11/28/2022 Last ECHO - 10/31/2022 Lund MA [facility] 2024-01-16 16:34:09 Chief Complaint Patient presents with Physical Annual physical Antoinette Hinton LVN [facility] 2024-01-10 09:24:25 Faxing clearance notes now. [facility] 2024-01-10 08:45:37 Last office note addended and updated. Patient is to continue aspirin 81 daily without any interruption. Please fax. [facility] 2024-01-09 11:08:22 Received via email. Printed placed in Dr. Brown's inbasket folder for chart review. [facility] 2024-01-09 10:56:26 Patient is checking on the status of the cardiac clearance. Please advise. LD [facility] Margaret Beauchamp [facility] 2024-01-04 09:49:30 Called Keny Blank. They are needing cardiac clearance for tooth extraction. They are going to reschedule patient's procedure. They are resending the clearance via email since it was not received by fax. LD [facility] Jammie Pruitt RN [facility] 2024-01-01 16:12:48 Meir Jackson is a 53 year old female Pt needs a medical clearance to have tooth extracted and she is scheduled for 01/03/24 Pt is also taking Asprin and they need to know does she need to stop that. Please advise Keny Blank [phone] [place] [facility] 2023-12-19 15:01:28 Chief Complaint Patient presents with New Patient Establish Care Wants you to look at her gums, she thinks she has a abscess. Dentist is on vacation. Needs referral to administration dean, nutritional assistant, and endo. Antoinette Hinton LVN [facility] 2023-12-04 13:10:22 Ordered. /BAKERY ASSOCIATE [facility] 2023-11-30 09:42:57 Pt is scheduled to come in on 12/04/2022 to see Geneva Pierson AGPCNP for a follow up visit for DM due to pt insurance HMO required to have a referral for specialty. Please upload a referral. Thank you /BAKERY ASSOCIATE Mayi Camacho [facility] 2023-06-28 12:56:11 Addended by: GOPAL ROGERS LVN on: 06/28/2023 12:56 PM Modules accepted: Orders [facility] 2023-06-28 12:48:56 Formatting of this n ote might be different from the original. OZZY 10/27/22 NOV 07/20/23 Per OZZY note: Plan -- Continue Tresiba 50 units daily -- continue Novolog at 14 units with meals. -- Increase Ozempic to 2 mg weekly injection Sending 30 day supply to last until appt on 07/20/23 [facility] 2023-06-28 09:23:41 Formatting of this n ote might be different from the original. Pt calling says she is out of insulin appt 07/20 Yudith Quintero [facility]
[2025-04-15] MEDS ORDERED: ASPIRIN 81 MG CHEWABLE TABLET ONE (21:26)
--- NOTE | 2025-04-15 21:38 | RAD REPORT ---
EXAM: Chest Single View HISTORY: 54 years Female CHEST PAIN COMPARISON: 12/17/2017 FINDINGS: LUNGS/PLEURA: The lungs are clear. No pleural effusions or pneumothorax. No pulmonary edema. Low lung volumes. CARDIAC/MEDIASTINUM: Mild cardiomegaly UPPER ABDOMEN: No significant abnormality. BONES: No acute abnormality. LINES/TUBES/OTHER: N/A IMPRESSION: No evidence of acute cardiopulmonary disease.
[2025-04-15 22:08] LABS: Absolute Eosinophils 0.1 K/uL (0-0.5); Absolute Lymphocytes (CBC) 2.6 K/uL (0.7-4.9); Absolute Monocytes 0.5 K/uL (0.1-1.3); Absolute Neutrophil 3.9 K/uL (1.8-8.0); Basophils % 0.4 % (0-1.3); Eosinophils % 1.3 % (0-4.4); Hematocrit 40.1 % (36.0-45.0); Hemoglobin 13.2 g/dL (12.0-15.0); Lymphocytes % 36.9 % (15.3-44.8); MCH 26.4 pg (27.0-35.0); MCHC 32.8 g/dL (32.0-36.0); MCV 80.4 fL (80-100); Monocytes % 6.8 % (3.3-12.3); Neutrophils % 54.6 % (41.7-73.7); Nucleated Red Blood Cells % 0.2 % (0-0); Platelets 224 thou/uL (152-406); RBC Red Blood Cell Count 4.99 M/uL (3.86-4.86); Red Cell Distribution Width 15.3 % (12.1-15.2)
[2025-04-15 22:16] LABS: Anion Gap 7.8 mEq/L (5.0-15.0); Troponin High Sensitivity 3.5 pg/mL (<58.9)
[2025-04-15 22:28] LABS: Magnesium 2.1 mg/dL (1.6-2.4); Potassium 3.8 mEq/L (3.5-5.1)
--- NOTE | 2025-04-15 22:36 | ER ---
Nurse's Notes [facility] Name: Stephanie Jackson Age: 54 yrs Sex: Female : 1970 Arrival Date: 04/15/2025 Time: 20:40 Bed 6 Private MD: Dalton Zamarripa Diagnosis: Chest pain, unspecified Presentation: 04/15 21:08 Chief complaint: Patient states: intermittent chest pain that started around 6 pm, vc1 worse with exertion. Coronavirus screen: Client denies travel out of the [place] in the last 14 days. At this time, the client does not indicate any symptoms associated with coronavirus-19. Ebola Screen: Patient negative for fever greater than or equal to 101.5 degrees Fahrenheit, and additional compatible Ebola Virus Disease symptoms Patient denies exposure to infectious person. Patient denies travel to an Ebola-affected area in the 21 days before illness onset. No symptoms or risks identified at this time. Initial Sepsis Screen: Does the patient meet any 2 criteria? No. Patient's initial sepsis screen is negative. Does the patient have a suspected source of infection? No. Patient's initial sepsis screen is negative. Risk Assessment: Do you want to hurt yourself or someone else? Patient reports no desire to harm self or others. Onset of symptoms was April 15, 2025 at 18:00. Care prior to arrival: None. Activity prior to arrival: None. 21:08 Method Of Arrival: Ambulatory vc1 21:08 Acuity: KATH 3 vc1 Triage Assessment: 21:11 General: Appears in no apparent distress. uncomfortable, obese, well groomed, well vc1 developed, well nourished, Behavior is calm, cooperative, appropriate for age. Pain: Complains of pain in left breast Pain does not radiate. Pain currently is 2 out of 10 on a pain scale. Quality of pain is described as sharp, Pain began suddenly, 3 hours ago. Is intermittent. EENT: No deficits noted. No signs and/or symptoms were reported regarding the EENT system. Neuro: Level of Consciousness is awake, alert, obeys commands, Oriented to person, place, time, situation, Appropriate for age. Cardiovascular: Capillary refill < 3 seconds Patient's skin is warm and dry. Chest pain is described as mild, Pain is 2 out of 10 on a pain scale. quality is sharp, is located in left anterior chest wall episodes are intermittent. Respiratory: Airway is patent Respiratory effort is even, unlabored, Respiratory pattern is regular, symmetrical. GI: Reports nausea. Historical: - Allergies: 21:09 No Known Allergies; vc1 - PMHx: 21:09 Diabetes - IDDM; Hypertension; PVC; Congestive heart failure; vc1 - PSHx: 21:09 Cardiac ablation; Total abdominal hysterectomy; cystocele; Cholecystectomy; vc1 - Immunization history:: Adult Immunizations up to date. - Infectious Disease History:: Denies. - Social history:: Smoking status: Patient denies any tobacco usage or history of. Screenin:11 Abuse screen: Denies threats or abuse. Nutritional screening: No deficits noted. vc1 Tuberculosis screening: No symptoms or risk factors identified. 21:31 [facility] ED Fall Risk Assessment (Adult) History of falling in the last 3 months, jr13 including since admission No falls in past 3 months (0 pts) Confusion or Disorientation No (0 pts) Intoxicated or Sedated No (0 pts) Impaired Gait No (0 pts) Mobility Assist Device Used No (0 pt) Altered Elimination No (0 pt) Score/Fall Risk Level 0 - 2 = Low Risk. Assessment: 21:28 General: Appears in no apparent distress. comfortable, Behavior is calm, cooperative, jr13 appropriate for age, quiet. Pain: Complains of pain in chest. Neuro: No deficits noted. Level of Consciousness is awake, alert, obeys commands, Oriented to person, place, time, situation, Appropriate for age. Cardiovascular: Reports chest pain, Sharp intermittent discomfort under left breast. Respiratory: No deficits noted. Airway is patent. GI: No signs and/or symptoms were reported involving the gastrointestinal system. Abdomen is round. : No deficits noted. No signs and/or symptoms were reported regarding the genitourinary system. EENT: No deficits noted. No signs and/or symptoms were reported regarding the EENT system. Derm: No deficits noted. No signs and/or symptoms reported regarding the dermatologic system. Skin is intact. Musculoskeletal: No deficits noted. No signs and/or symptoms reported regarding the musculoskeletal system. Circulation, motion, and sensation intact. Vital Signs: 21:08 BP 134 / 82; Pulse 72; Resp 12; Temp 98.1; Pulse Ox 98% ; Weight 117.93 kg; Height 5 vc1 ft. 6 in. ; Pain 2/10; 21:31 BP 141 / 96; Pulse 72; Resp 18; Pulse Ox 99% on R/A; jr13 22:26 BP 157 / 82; Pulse 72; Resp 17; Pulse Ox 99% on R/A; jr13 23:24 BP 134 / 65; Pulse 69; Resp 17; Pulse Ox 100% on R/A; jr13 21:08 Body Mass Index 41.96 (117.93 kg, 167.64 cm) vc1 21:08 Pain Scale: Adult vc1 ED Course: 20:41 Patient arrived in ED. jj6 20:41 Dalton Zamarripa DO is Private Physician. jj6 20:44 Brit Jane FNP-C [facility]. kb 20:44 Mustapha Perkins MD is Attending Physician. kb 21:09 Triage completed. vc1 21:11 Arm band placed on right wrist. vc1 21:11 Patient has correct armband on for positive identification. Bed in low position. Call vc1 light in reach. playground monitor on. Pulse ox on. NIBP on. 21:13 Roslyn Holguin, RN is Primary Nurse. jr13 21:27 Basic Metabolic Panel Sent. jr13 21:27 CBC with Diff Sent. jr13 21:27 Magnesium Sent. jr13 21:27 NT PRO-BNP Sent. jr13 21:28 Inserted saline lock: 20 gauge in left antecubital area, using aseptic technique. jr13 21:36 XRAY Chest (1 view) In Process Unspecified. EDMS 22:35 Ignacio Cantu MD is Hospitalizing Provider. kb 23:54 No provider procedures requiring assistance completed. Patient admitted, IV remains in jr13 place. Patient maintains SpO2 saturation greater than 95% on room air. 23:55 Provided Education on: Educated on plan of care. jr13 Administered Medications: 21:28 Drug: Aspirin PO Chewable Tablet 324 mg PO once; 81 mg tablets x 4 Route: PO; jr13 Medication: 21:31 VIS not applicable for this client. jr13 Outcome: 22:35 Decision to Hospitalize by Provider. kb 23:54 Admitted to Med/surg accompanied by nurse, jr 23:54 Condition: stable 23:54 Instructed on the need for admit, 23:58 Patient left the ED. jr13 Signatures: Dispatcher [employer] Brit Salazar, CSR TECHNICIAN-C CSR TECHNICIAN-Gracie Moore jj6 Danette Estrella RN RN vc1 Roslyn Holguin RN RN jr13
--- NOTE | 2025-04-15 22:36 | EDPHYS ---
Physician Documentation [facility] Name: Stephanie Jackson Age: 54 yrs Sex: Female : 1970 Arrival Date: 04/15/2025 Time: 20:40 Bed 6 Private MD: Dalton Zamarripa ED Physician Mustapha Perkins HPI: 04/15 20:52 This 54 yrs old Black Female presents to ER via Unassigned with complaints of chest kb pain. 20:52 Patient is a 54-year-old female who presents for left chest pain that started at 1800 kb this evening. States the pain is sharp, intermittent and just below left breast. Reports pain is worse with exertion. Reports slight nausea. Denies shortness of breath.. Historical: - Allergies: 21:09 No Known Allergies; vc1 - PMHx: 21:09 Diabetes - IDDM; Hypertension; PVC; Congestive heart failure; vc1 - PSHx: 21:09 Cardiac ablation; Total abdominal hysterectomy; cystocele; Cholecystectomy; vc1 - Immunization history:: Adult Immunizations up to date. - Infectious Disease History:: Denies. - Social history:: Smoking status: Patient denies any tobacco usage or history of. ROS: 20:53 Constitutional: As per HPI kb Exam: 20:53 Constitutional: This is a well developed, well nourished patient who is awake, alert, kb and in no acute distress. Head/Face: Normocephalic, atraumatic. ENT: Moist Mucous membranes Cardiovascular: Regular rate Respiratory: Respirations even and unlabored. No increased work of breathing. Talking in full sentences Skin: Warm, dry with normal turgor. Normal color. MS/ Extremity: Pulses equal, no cyanosis. Neurovascular intact. Full, normal range of motion. Neuro: Awake and alert, GCS 15, oriented to person, place, time, and situation. 21:15 ECG was reviewed by the Attending Physician. kb Vital Signs: 21:08 BP 134 / 82; Pulse 72; Resp 12; Temp 98.1; Pulse Ox 98% ; Weight 117.93 kg; Height 5 vc1 ft. 6 in. ; Pain 2/10; 21:31 BP 141 / 96; Pulse 72; Resp 18; Pulse Ox 99% on R/A; jr13 22:26 BP 157 / 82; Pulse 72; Resp 17; Pulse Ox 99% on R/A; jr13 23:24 BP 134 / 65; Pulse 69; Resp 17; Pulse Ox 100% on R/A; jr13 21:08 Body Mass Index 41.96 (117.93 kg, 167.64 cm) vc1 21:08 Pain Scale: Adult vc1 MDM: 20:44 Medical Screening Exam initiated kb 22:34 Differential diagnosis: abnormal EKG, acute myocardial infarction, coronary artery kb disease chest wall pain. The patient was given aspirin in the Emergency Department. Data reviewed: vital signs, nurses notes. Consideration of Admission/Observation Patient was admitted/placed on observation. Escalation of care including admission/observation considered. Management of patient was discussed with the following: Hospitalist: Sanchez accepts pt for admission under Dr Cantu. Counseling: I had a detailed discussion with the patient and/or guardian regarding the historical points, exam findings, and any diagnostic results supporting the discharge/admit diagnosis, lab results, radiology results, the need for further work-up and treatment in the hospital. 04/15 20:52 Order name: Basic Metabolic Panel; Complete Time: 22:29 kb 04/15 20:52 Order name: CBC with Diff; Complete Time: 22:12 kb 04/15 20:52 Order name: Magnesium; Complete Time: 22:29 kb 04/15 20:52 Order name: NT PRO-BNP; Complete Time: 22:29 kb 04/15 20:52 Order name: Troponin HS; Complete Time: 22:29 kb 04/15 23:40 Order name: CBC with Automated Diff EDMS 04/15 23:40 Order name: CBC with Automated Diff EDMS 04/15 23:40 Order name: Troponin High Sensitivity EDMS 04/15 23:40 Order name: Troponin High Sensitivity EDMS 04/15 23:40 Order name: Troponin High Sensitivity EDMS 04/15 23:40 Order name: Troponin High Sensitivity EDMS 04/15 23:40 Order name: Troponin High Sensitivity EDMS 04/15 20:52 Order name: XRAY Chest (1 view); Complete Time: 21:49 kb 04/15 23:40 Order name: Echo with Doppler EDMS 04/15 23:40 Order name: EKG Electrocardiogram EDMS 04/15 23:40 Order name: EKG Electrocardiogram EDMS 04/15 23:40 Order name: EKG Electrocardiogram EDMS 04/15 23:40 Order name: EKG Electrocardiogram EDMT 04/15 20:52 Order name: Cardiac monitoring; Complete Time: 21:27 kb 04/15 20:52 Order name: EKG - Nurse/Tech; Complete Time: 21:27 kb 04/15 20:52 Order name: IV Saline Lock; Complete Time: 21:27 kb 04/15 20:52 Order name: Labs collected and sent; Complete Time: 21: kb 04/15 20:52 Order name: O2 Per Protocol; Complete Time: : kb 04/15 20:52 Order name: O2 Sat Monitoring; Complete Time: 21:27 kb EC:15 Rate is 76 beats/min. Rhythm is regular. QRS [place] is Normal. ME interval is normal at kb 152 msec. QRS interval is normal at 98 msec. QT interval is normal at 490 msec. Administered Medications: : Drug: Aspirin PO Chewable Tablet 324 mg PO once; 81 mg tablets x 4 Route: PO; jr13 Disposition: 04/16 00:46 Co-signature as Attending Physician, Mustapha Perkins MD I reviewed the patient's care rn provided by the Advanced Practice Provider and agree with the diagnosis and treatment plan. Disposition Summary: 04/15/25 22:35 Hospitalization Ordered Notes: Hospitalization Status: Observation kb Provider: Ignacio Cantu Location: Telemetry/MedSurg (observation) kb Condition: Stable kb Problem: new kb Symptoms: are unchanged kb Bed/Room Type: Standard Room Assignment: 213(04/15/25 23:34) rv1 Diagnosis - Chest pain, unspecified kb Forms: - Medication Reconciliation Form kb - SBAR form kb - Leadership Thank You Letter kb Signatures: Dispatcher [employer] Brit Avendano, SURPLUS PROPERTY DISPOSAL AGENT-C SURPLUS PROPERTY DISPOSAL AGENT-Ckb Mustapha Perkins MD MD rn Calcote, Vanessa RN RN vc1 Lauar Bassett rv1 Roslyn Holguin, RN RN jr13 Corrections: (The following items were deleted from the chart) 04/15 20:53 20:52 This 54 yrs old Black Female presents to ER via Unassigned with complaints of kb Breast Problem. kb 23:34 22:35 kb rv1
[2025-04-15] MEDS ORDERED: NITROGLYCERIN 0.4 MG/TAB SL PRN (23:29)
[2025-04-15] MEDS ORDERED: MORPHINE 4 MG/ML SYR IV PRN (23:39)
--- NOTE | 2025-04-15 23:46 | P.HP ---
Certification for Inpatient Patient admitted to: Observation With expected LOS: >2 Midnights Practitioner: I am a practitioner with admitting privileges, knowledge of patient current condition, hospital course, and medical plan of care. Services: Services provided to patient in accordance with Admission requirements found in Title 42 Section 412.3 of the Code of Federal Regulations Patient History Date of Service: 04/15/25 Allergies No Known Drug Allergies Allergy (Unverified 03/02/15 17:33) Unknown No Known Allergies Allergy (Uncoded 03/21/16 18:50) Unknown Home Medications: Ergocalciferol (Vitamin D2) [Vitamin D 50,000 Unit Cap] 50,000 unit PO UD 08/13/14 Insulin Aspart [Novolog Penfill] 14 unit SQ TID 08/13/14 Losartan Potassium [Cozaar] 100 mg PO DAILY 08/13/14 Liraglutide [Victoza 2-Herb] 1.8 mg SQ DAILY 02/04/15 Atorvastatin Calcium [Lipitor] 20 mg PO BEDTIME 04/17/18 Insulin Glargine,Hum.rec.anlog [Lantus] 44 unit SQ DAILY 04/17/18 - Past Medical/Surgical History Diabetic: Yes -: HTN -: DM -: Hyst -: Back Pain -: 1990- Gallbladder -: 2006- Knee surgery -: 2007- Hysterectomy -: 2011- Bladder sling -: 2013- Cytocele & Rectocele -: 2014- Colonoscopy - Family History Mother -: Heart disease, Hypertension, Diabetes Father -: Lung disease Sister -: Diabetes Brother -: Hypertension - Social History Alcohol use: No CD- Drugs: No Caffeine use: Yes Physical Examination - Studies Laboratory Data (last 24 hrs) 04/15/25 04/15/25 21:20 21:20 WBC 7.10 Hgb 13.2 Hct 40.1 Plt Count 224 Sodium 139 Potassium 3.8 BUN 17 Creatinine 0.85 Glucose 154 H Magnesium 2.1 Assessment and Plan - Advance Directives Does patient have a Living Will: No Does patient have a Durable POA for Healthcare: No
[2025-04-16 00:15] VITALS: BMI 40.8
[2025-04-16 07:02] LABS: Absolute Eosinophils 0.1 K/uL (0-0.5); Absolute Lymphocytes (CBC) 2.9 K/uL (0.7-4.9); Absolute Monocytes 0.5 K/uL (0.1-1.3); Absolute Neutrophil 2.9 K/uL (1.8-8.0); Basophils % 0.5 % (0-1.3); Eosinophils % 1.6 % (0-4.4); Hematocrit 41.6 % (36.0-45.0); Hemoglobin 13.5 g/dL (12.0-15.0); Lymphocytes % 45.1 % (15.3-44.8); MCH 26.1 pg (27.0-35.0); MCHC 32.4 g/dL (32.0-36.0); MCV 80.4 fL (80-100); MPV 9.7 fL (7.6-11.3); Monocytes % 8.1 % (3.3-12.3); Neutrophils % 44.7 % (41.7-73.7); Nucleated Red Blood Cells % 0.1 % (0-0); Platelets 255 thou/uL (152-406); RBC Red Blood Cell Count 5.17 M/uL (3.86-4.86); Red Cell Distribution Width 15.4 % (12.1-15.2)
[2025-04-16] MEDS: INSULIN REGULAR (HUMAN) 100 UNIT/ML SQ SCH (07:30)
[2025-04-16] MEDS: ENOXAPARIN 40 MG/0.4 ML SQ SCH (08:33)
[2025-04-16] MEDS: ASPIRIN EC 81 MG TAB PO SCH (08:34)
[2025-04-16] MEDS ORDERED: LIDOCAINE 1% 20 ML MDV ONE (11:27)
[2025-04-16] MEDS ORDERED: HEPARIN 10,000 UNIT/10 ML VIAL IV ONE (11:27)
[2025-04-16] MEDS ORDERED: HEPA 1000U/500MLS 2,000 UNIT/1,000 ML BAG IV ONE (11:27)
[2025-04-16] MEDS ORDERED: ATROPINE SULF 1 MG/10 ML SYR IV ONE (11:28)
[2025-04-16] MEDS ORDERED: TICAGRELOR 90 MG TABLET PO ONE (11:28)
[2025-04-16] MEDS ORDERED: CLOPIDOGREL 75 MG TABLET ONE (11:28)
[2025-04-16] MEDS ORDERED: FENTANYL CITR 100 MCG/2 ML ONE (11:28)
[2025-04-16] MEDS ORDERED: MIDAZOLAM HCL 2 MG/2 ML INJ ONE (11:28)
[2025-04-16] MEDS ORDERED: ASPIRIN 325 MG TAB ONE (11:28)
[2025-04-16] MEDS ORDERED: HEPARIN 5000 UNIT/ML 1 ML VIAL ONE (11:28)
--- NOTE | 2025-04-16 11:31 | P.CNS ---
Date of Consult: 04/16/25 Chief Complaint: chest pain History of Present Illness: Patient with PMH of PVCs, heart failure reduced EF, last EF is 40% at [facility], presented with chest pain that has been going on since yesterday, felt it first while she was driving, under her left breast, no radiation, felt another one this morning, report no other cardiac symptoms. Allergies No Known Drug Allergies Allergy (Verified 04/16/25 00:15) Unknown Home medications list reviewed: Yes Home Medications: Aspirin Chewable [Aspirin Chewable*] 81 mg PO DAILY 04/16/25 Dapagliflozin Propanediol [Farxiga] 10 mg PO DAILY 04/16/25 Insulin Glargine/Lixisenatide [Soliqua 100 Unit-33 Mcg/ml Pen] 46 unit SQ BREAKFAST 04/16/25 Insulin Lispro [Humalog] 15 unit SQ BID 04/16/25 Magnesium Glycinate 500 mg PO DAILY 04/16/25 Meloxicam [Mobic] 15 mg PO DAILY PRN 04/16/25 Metoprolol Succinate [Toprol Xl*] 50 mg PO BID 04/16/25 Omeprazole [Prilosec] 40 mg PO DAILY 04/16/25 Rosuvastatin Calcium [Crestor] 20 mg PO BEDTIME 04/16/25 Sacubitril/Valsartan [Entresto 24 mg-26 mg Tablet] 1 tab PO BID 04/16/25 Smz./Tmp. [Bactrim Ds 800 MG/160 MG*] 1 tab PO BID 04/16/25 Vitamin D [Drisdol*] 50,000 unit PO SEECOM 04/16/25 - Past Medical/Surgical History Diabetic: Yes -: HTN -: DM -: back pain -: Back Pain -: 1990- Gallbladder -: 2006- Knee surgery -: 2008- Hysterectomy -: 2012- Bladder sling -: 2013- Cytocele & Rectocele -: 2014- Colonoscopy - Family History Mother Medical History: Heart disease, Hypertension, Diabetes Father Medical History: Lung disease Sister Medical History: Diabetes Brother Medical History: Hypertension - Social History Alcohol use: No CD- Drugs: No Caffeine use: No Place of Residence: Home Review of Systems 10-point ROS is otherwise unremarkable Physical Examination Temp Pulse Resp BP Pulse Ox 97.5 F 75 16 124/65 99 04/16/25 08:00 04/16/25 08:00 04/16/25 08:00 04/16/25 08:00 04/16/25 08:00 General: Alert, In no apparent distress HEENT: Atraumatic, PERRLA, Mucous membr. moist/pink, EOMI, Sclerae nonicteric Neck: Supple, 2+ carotid pulse no bruit, No LAD, Without JVD or thyroid abnormality Respiratory: Clear to auscultation bilaterally, Normal air movement Cardiovascular: Regular rate/rhythm, Normal S1 S2 Gastrointestinal: Normal bowel sounds, No tenderness Musculoskeletal: No tenderness Integumentary: No rashes Neurological: Normal gait, Normal speech, Normal tone, Normal affect Lymphatics: No axilla or inguinal lymphadenopathy Laboratory Data (last 24 hrs) 04/15/25 04/15/25 21:20 21:20 WBC 7.10 Hgb 13.2 Hct 40.1 Plt Count 224 Sodium 139 Potassium 3.8 BUN 17 Creatinine 0.85 Glucose 154 H Magnesium 2.1 - Problems (1) Heart failure with reduced ejection fraction Current Visit: Yes Status: Acute Plan: patient looks euovlemic on exam continue Toprol XL 50 mg daily Continue home dose Entresto patient had an echo done recently that shown EF 40%, no need to repeat. continue to monitor input and output and electrolytes. (2) HTN (hypertension) Current Visit: Yes Status: Acute Plan: continue toprol XL 50 and Entresto and continue to monitor. (3) Chest pain Onset Date: 02/24/15 Current Visit: No Status: Acute Plan: patient with HFrEF, concern for unstable angina, plan is to proceed with coronary angiogram ASA 81 mg daily.
[2025-04-16] MEDS ORDERED: NA CHLORIDE 0.9% 500 ML ONE (11:34)
[2025-04-16 14:16] VITALS: O2SAT 100
[2025-04-16] MEDS ORDERED: HOME MED 1 EA UNK (Meloxicam [Mobic] 15 MG Tablet) PO PRN (17:14)
--- NOTE | 2025-04-16 17:24 | P.PN ---
Date of Service: 04/16/25 Subjective Complaining of intermittent left sided chest pain no acute distress ROS 10 point ROS as noted above, otherwise negative General: AAOx3, NAD HEENT: mucus membranes moist, nare normal Head/Neck: Normocephalic, atraumatic, neck supple Respiratory: symmetrical chest expansion, no accessory muscles used, lungs clear on ausultation Cardiac: RRR, S1-S2 present Extremities: No edema present, peripheral pulses 2+ Abdominal: soft, NT/ND Skin: warm pink and dry Neurological: clear speech Vitals Reviewed Problem list Chest pain rule out Heart failure reduced EF, 40% DM-IDDM HTN Assessment and Plan Chest pain rule out Heart failure reduced EF, 40% - EKG: No obvious ST segment changes, trend - Serial troponin pending - Cancelled transthoracic echocardiogram, one was performed in February showing 40% EF (patient reported) - chest x-ray- "No evidence of acute cardiopulmonary disease" - Consult Cardiology - [facility] today - Start daily baby aspirin and statin - Symptom control with PRN acetaminophen, nitroglycerin, morphine - continuous telemetry - TSH/FreeT4, A1C, lipid panel pending DM-IDDM -accucheck with SSI HTN -continue home medications as appropriate DVT ppx Lovenox Full code LOS 24 hour OBS Time Spent Managing Pts Care (In Minutes): 35
[2025-04-16] MEDS ORDERED: MELOXICAM 7.5 MG TAB PO PRN (17:33)
[2025-04-16 18:05] VITALS: BP 126/71; TEMP 98.2
[2025-04-16] MEDS ORDERED: SACUBITRIL/VALSARTAN 24/26 MG TAB PO SCH (21:00)
[2025-04-16] MEDS ORDERED: METOPROLOL XL 50 MG TAB PO SCH (21:00)
[2025-04-17] MEDS ORDERED: Dapagliflozin Propanediol [Farxiga] 10 MG Tablet *PT OWN MED PO SCH (09:00)
== END 2025-04-16 20:15 | disposition home or self-care (01) ==
LOC: ER 20:40 → 2ND 23:23
PROVIDERS: ADMIT Hospitalist; ATTEND Hospitalist
DX: I50.21 Acute systolic (congestive) heart failure (principal); R07.9 Chest pain, unspecified; I10 Essential (primary) hypertension; E11.9 Type 2 diabetes mellitus without complications; Z79.82 Long term (current) use of aspirin
CPT/HCPCS: 85025 ×2; 80048; 36415; 83735; 82947 ×4; 84484 ×4; 83880; 71045; 93458; 76937; 99285; C1893; Q9966; J1644 ×2; J2003; J1650; J2250; J3010; J1815; J7040; G0378 ×2; 93005; 99152; 99153; J0461